=== PATIENT | female | born 2000 | race Hispanic/Latino ===

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

== ENCOUNTER 2018-09-06 21:32 | Emergency (ER) | payer BC, OTHER ==
--- OUTSIDE RECORDS SUMMARY | 2018-09-06 21:34 | XMS REPORT ---
:2000 [facility] Address [address] [place] [address] Care Team Providers Name Role Phone Unavailable Unavailable Unavailable Problems This patient has no known problems. Allergies, Adverse Reactions, Alerts This patient has no known allergies or adverse reactions. Medications This patient has no known medications.
[2018-09-06 23:00] LABS: Urine Blood NEGATIVE (NEG); Urine Glucose NEGATIVE (NEG); Urine Protein NEGATIVE (NEG)
[2018-09-06 23:02] LABS: Urine Bacteria <20 /HPF (<20); Urine RBC NONE SEEN /HPF (NONE SEEN)
[2018-09-06 23:02] LABS: Absolute Lymphocytes (CBC) 1.6 K/uL (0.7-4.9); Absolute Monocytes 0.5 K/uL (0.1-1.3); Absolute Neutrophil 2.3 K/uL (1.8-8.0); Basophils % 0.4 % (0-1.3); Eosinophils % 3.9 % (0-4.4); Hematocrit 40.6 % (36.0-45.0); Lymphocytes % 35.5 % (15.3-44.8); MPV 8.2 fL (7.6-11.3); Monocytes % 10.9 % (3.3-12.3); RBC Red Blood Cell Count 5.25 M/uL (3.86-4.86)
[2018-09-06 23:03] LABS: Urine Amorphous Sediment 1+ /HPF (NONE SEEN); Urine Culture Reflex Order NOT NEEDED
[2018-09-06 23:14] LABS: Albumin 3.7 g/dL (3.4-5.0); Bilirubin Direct 0.1 mg/dL (0-0.2); Bilirubin Total 0.4 mg/dL (0.2-1.0); Potassium 4.3 mmol/L (3.5-5.1); Protein, Total 7.3 g/dL (6.4-8.2)
[2018-09-07] MEDS ORDERED: ACETAMINOPHEN 500 MG TAB ONE (00:58)
--- NOTE | 2018-09-07 01:28 | EDPHYS ---
Physician Documentation [facility] Name: Aleisha Mcqueen Age: 17 yrs Sex: Female : 2000 Arrival Date: 09/06/2018 Time: 21:36 Bed 23 Private MD: ED Physician Dandre Monk HPI: 09/07 00:31 This 17 yrs old Female presents to ER via Ambulatory with complaints of jr8 Abdominal Pain, Nausea. 00:31 The patient presents with abdominal pain in the left lower quadrant. Onset: The jr8 symptoms/episode began/occurred acutely, today. The symptoms do not radiate. Associated signs and symptoms: Pertinent positives: nausea. The symptoms are described as stabbing. Modifying factors: The symptoms are alleviated by nothing, the symptoms are aggravated by nothing. Severity of pain: At its worst the pain was moderate in the emergency department the pain is unchanged. The patient has not experienced similar symptoms in the past. The patient has not recently seen a physician. 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 - Social history:: Smoking status: Patient/guardian denies using tobacco, Patient/guardian denies using alcohol. - Ebola Screening: : No symptoms or risks identified at this time. ROS: 09/07 00:31 ENT: Negative for injury, pain, and discharge, Neck: Negative for injury, pain, and jr8 swelling, Cardiovascular: Negative for chest pain, palpitations, and edema, Respiratory: Negative for shortness of breath, cough, wheezing, and pleuritic chest pain, Back: Negative for injury and pain, MS/Extremity: Negative for injury and deformity, Skin: Negative for injury, rash, and discoloration, Neuro: Negative for headache, weakness, numbness, tingling, and seizure. Constitutional: Positive for fever. Abdomen/GI: Positive for abdominal pain, nausea, diarrhea, Negative for vomiting, abdominal distension, anorexia, dysphagia, hematemesis, black/tarry stool, rectal pain, rectal bleeding, bowel incontinence, flatulence. Exam: 00:31 Eyes: Pupils equal round and reactive to light, extra-ocular motions intact. Lids and jr8 lashes normal. Conjunctiva and sclera are non-icteric and not injected. Cornea within normal limits. Periorbital areas with no swelling, redness, or edema. ENT: Nares patent. No nasal discharge, no septal abnormalities noted. Tympanic membranes are normal and external auditory canals are clear. Oropharynx with no redness, swelling, or masses, exudates, or evidence of obstruction, uvula midline. Mucous membranes moist. Neck: Trachea midline, no thyromegaly or masses palpated, and no cervical lymphadenopathy. Supple, full range of motion without nuchal rigidity, or vertebral point tenderness. No Meningismus. Cardiovascular: Regular rate and rhythm with a normal S1 and S2. No gallops, murmurs, or rubs. Normal PMI, no JVD. No pulse deficits. Respiratory: Lungs have equal breath sounds bilaterally, clear to auscultation and percussion. No rales, rhonchi or wheezes noted. No increased work of breathing, no retractions or nasal flaring. Back: No spinal tenderness. No costovertebral tenderness. Full range of motion. Skin: Warm, dry with normal turgor. Normal color with no rashes, no lesions, and no evidence of cellulitis. MS/ Extremity: Pulses equal, no cyanosis. Neurovascular intact. Full, normal range of motion. Neuro: Awake and alert, GCS 15, oriented to person, place, time, and situation. Cranial nerves II-XII grossly intact. Motor strength 5/5 in all extremities. Sensory grossly intact. Cerebellar exam normal. Normal gait. 00:31 Abdomen/GI: Inspection: abdomen appears normal, Bowel sounds: normal, Palpation: soft, in all quadrants, mild abdominal tenderness, in the left lower quadrant, mass, is not appreciated, rebound tenderness, is not appreciated, voluntary guarding, is not appreciated, involuntary guarding, is not appreciated, no appreciated organomegaly, Indicators: McBurney's point is not tender, Ramachandran's sign is negative, Rovsing's sign is negative, Liver: tenderness, is not appreciated. Vital Signs: 09/06 21:49 BP 117 / 72; Pulse 60; Resp 16; Temp 100.6(O); Pulse Ox 99% on R/A; Weight 108.86 kg jb4 (R); Height 5 ft. 3 in. (160.02 cm) (R); Pain 5/10; 22:45 BP 108 / 68; Pulse 61; Resp 16; Pulse Ox 100% on R/A; jb4 23:15 BP 106 / 71; Pulse 88; Resp 16; Temp 100.0(O); Pulse Ox 100% on R/A; jb4 09/07 00:10 BP 111 / 77; Pulse 56; Resp 16; Pulse Ox 100% on R/A; jb4 01:33 BP 108 / 78; Pulse 65; Resp 18; Temp 99.5(O); Pulse Ox 100% on R/A; Pain 0/10; mg2 09/06 21:49 Body Mass Index 42.51 (108.86 kg, 160.02 cm) jb4 MDM: 09/06 22:10 Patient medically screened. [facility] 09/07 01:27 Data reviewed: vital signs, nurses notes, lab test result(s), radiologic studies, CT jr8 scan, and as a result, I will discharge patient. Data interpreted: Pulse oximetry: on room air is 100 %. Interpretation: normal. Counseling: I had a detailed discussion with the patient and/or guardian regarding: the historical points, exam findings, and any diagnostic results supporting the discharge/admit diagnosis, lab results, radiology results, the need for outpatient follow up, a family practitioner, to return to the emergency department if symptoms worsen or persist or if there are any questions or concerns that arise at home. Response to treatment: the patient's symptoms have markedly improved after treatment. 09/06 22:29 Order name: Basic Metabolic Panel; Complete Time: 00:18 09/06 22:29 Order name: CBC with Diff; Complete Time: 00:18 09/06 22:29 Order name: Creatinine for Radiology; Complete Time: 00:18 09/06 22:29 Order name: Hepatic Function; Complete Time: 00:18 09/06 22:29 Order name: Lipase; Complete Time: 00:18 09/06 22:37 Order name: Urine Microscopic Only; Complete Time: 00:18 09/06 22:29 Order name: IV Saline Lock; Complete Time: 22:53 09/06 22:29 Order name: Labs collected and sent; Complete Time: 22:53 [facility] 09/06 22:30 Order name: CT Abd/Pelvis - W/Contrast [facility] 09/06 22:30 Order name: Urine Test (obtain specimen); Complete Time: 22:40 09/06 22:30 Order name: Urine Dipstick-Ancillary (obtain specimen); Complete Time: 22:40 8 09/06 22:40 Order name: Urine Dipstick--Ancillary (enter results); Complete Time: 00:18 ar5 09/06 22:40 Order name: Urine --Ancillary (enter results); Complete Time: 00:18 ar5 Administered Medications: 00:45 Drug: Tylenol 1000 mg Route: PO; jb4 01:33 Follow up: Response: No adverse reaction; Marked relief of symptoms mg2 Disposition: 09/07/18 01:27 Discharged to Home. Impression: Acute Gastroenteritis. - Condition is Stable. - Discharge Instructions: Viral Gastroenteritis, Adult. - Prescriptions for Bentyl 20 mg Oral Tablet - take 1 tablet by ORAL route every 6 hours As needed; 20 tablet. Zofran 4 mg Oral Tablet - take 1 tablet by ORAL route every 12 hours As needed; 20 tablet. - Medication Reconciliation Form, Thank You Letter, Antibiotic Education, Prescription Opioid Use form. - Follow up: Private Physician; When: 2 - 3 days; Reason: Recheck today's complaints, Continuance of care, Re-evaluation by your physician. - Problem is new. - Symptoms have improved. Addendum: 09/09/2018 11:15 Co-signature as Attending Physician, Dandre Monk MD I agree with the assessment and c ratliff plan of care. Signatures: Dispatcher [employer] [facility] Dandre Monk MD MD cha Roszak, Josh, PA PA jr8 Van Cormier, RN RN jb4 Osei Freeman, ALCON RN mg2 Corrections: (The following items were deleted from the chart) 09/07 01:35 01:27 09/07/2018 01:27 Discharged to Home. Impression: Acute Gastroenteritis. Condition mg2 is Stable. Forms are Medication Reconciliation Form, Thank You Letter, Antibiotic Education, Prescription Opioid Use. Follow up: Private Physician; When: 2 - 3 days; Reason: Recheck today's complaints, Continuance of care, Re-evaluation by your physician. Problem is new. Symptoms have improved. jr8
--- NOTE | 2018-09-07 01:28 | ER ---
Nurse's Notes [facility] Name: Aleisha Mcqueen Age: 17 yrs Sex: Female : 2000 Arrival Date: 09/06/2018 Time: 21:36 Bed 23 Private MD: Diagnosis: Acute Gastroenteritis Presentation: 09/06 21:49 Presenting complaint: Patient states: 3 days ago I ate chick-kody before work and jb4 started having a stabbing pain in my stomach. 21:49 Transition of care: patient was not received from another setting of care. Onset of jb4 symptoms was September 03, 2018. Risk Assessment: Do you want to hurt yourself or someone else? Patient reports no desire to harm self or others. Initial Sepsis Screen: Does the patient meet any 2 criteria? No. Patient's initial sepsis screen is negative. Does the patient have a suspected source of infection? No. Patient's initial sepsis screen is negative. Care prior to arrival: None. 21:49 Method Of Arrival: Ambulatory jb4 21:49 Acuity: PINEDA 3 jb4 Triage Assessment: 21:49 General: Appears in no apparent distress. comfortable, Behavior is calm, cooperative, jb4 appropriate for age. Pain: Complains of pain in left upper quadrant Pain does not radiate. Pain currently is 5 out of 10 on a pain scale. Quality of pain is described as stabbing, Pain began 2-3 days ago. Is intermittent. EENT: No signs and/or symptoms were reported regarding the EENT system. Neuro: Level of Consciousness is awake, alert, obeys commands, Oriented to person, place, time, situation. Cardiovascular: Patient's skin is warm and dry. Respiratory: Airway is patent Respiratory effort is even, unlabored, Respiratory pattern is regular, symmetrical. GI: Abdomen is non-distended, obese, Bowel sounds present X 4 quads. Abd is soft X 4 quads Abd is non tender in right upper quadrant, right lower quadrant and left lower quadrant Abdomen is tender to palpation in left upper quadrant Reports diarrhea, nausea. : No signs and/or symptoms were reported regarding the genitourinary system. Derm: Skin is intact, Skin is pink, warm \T\ dry. Musculoskeletal: Circulation, motion, and sensation intact. WARNING ANALYST: 21:49 LMP 08/23/2018 jb4 Historical: - Allergies: 21:49 No Known Allergies; jb4 - Home Meds: 21:49 None [Active]; jb4 - PMHx: 21:49 None; jb4 - PSHx: 21:49 Cholecystectomy; jb4 - Immunization history:: Adult Immunizations up to date, Flu vaccine is up to date. - Social history:: Smoking status: Patient/guardian denies using tobacco, Patient/guardian denies using alcohol. - Ebola Screening: : No symptoms or risks identified at this time. Screenin:49 Abuse screen: Denies threats or abuse. Nutritional screening: No deficits noted. jb4 Tuberculosis screening: No symptoms or risk factors identified. Fall Risk None identified. Assessment: 21:49 General: see triage note.. jb4 22:39 Reassessment: Patient appears in no apparent distress at this time. Patient and/or jb4 family updated on plan of care and expected duration. Pain level reassessed. Patient is alert, oriented x 3, equal unlabored respirations, skin warm/dry/pink. 23:21 Reassessment: Patient appears in no apparent distress at this time. Patient and/or jb4 family updated on plan of care and expected duration. Pain level reassessed. Patient is alert, oriented x 3, equal unlabored respirations, skin warm/dry/pink. 09/07 00:11 Reassessment: Patient appears in no apparent distress at this time. Patient and/or jb4 family updated on plan of care and expected duration. Pain level reassessed. Patient is alert, oriented x 3, equal unlabored respirations, skin warm/dry/pink. 00:20 Reassessment: Pt reported vomiting in CT, when offered something for nausea, pt jb4 refused, provider notified. 01:34 Reassessment: Patient states feeling better. mg2 Vital Signs: 09/06 21:49 BP 117 / 72; Pulse 60; Resp 16; Temp 100.6(O); Pulse Ox 99% on R/A; Weight 108.86 kg jb4 (R); Height 5 ft. 3 in. (160.02 cm) (R); Pain 5/10; 22:45 BP 108 / 68; Pulse 61; Resp 16; Pulse Ox 100% on R/A; jb4 23:15 BP 106 / 71; Pulse 88; Resp 16; Temp 100.0(O); Pulse Ox 100% on R/A; jb4 09/07 00:10 BP 111 / 77; Pulse 56; Resp 16; Pulse Ox 100% on R/A; jb4 01:33 BP 108 / 78; Pulse 65; Resp 18; Temp 99.5(O); Pulse Ox 100% on R/A; Pain 0/10; mg2 09/06 21:49 Body Mass Index 42.51 (108.86 kg, 160.02 cm) jb4 ED Course: 09/06 21:36 Patient arrived in ED. mr 21:48 Van Cormier, RN is Primary Nurse. jb4 21:49 Arm band placed on left wrist. jb4 21:49 Patient has correct armband on for positive identification. Bed in low position. Call jb4 light in reach. Side rails up X 1. Pulse ox on. NIBP on. 21:56 Triage completed. jb4 21:56 Theo Nieves PA is PHCP. jr8 21:56 Dandre Monk MD is Attending Physician. jr8 22:32 Radiology exam delayed due to lab results not completed at this time. test vr not completed at this time. 22:40 Missed attempt(s): 20 gauge in right antecubital area. 22 gauge in right forearm. jp3 Bleeding controlled, band aid applied, catheter tip intact. 22:53 Inserted saline lock: 22 gauge in left antecubital area, using aseptic technique. Blood mg2 collected. 09/07 00:15 CT Abd/Pelvis - W/Contrast In Process Unspecified. EDMS 00:54 No provider procedures requiring assistance completed. mg2 01:34 IV discontinued, intact, bleeding controlled, No redness/swelling at site. Pressure mg2 dressing applied. Administered Medications: 00:45 Drug: Tylenol 1000 mg Route: PO; jb4 01:33 Follow up: Response: No adverse reaction; Marked relief of symptoms mg2 Outcome: 01:27 Discharge ordered by . jr8 01:35 Discharged to home ambulatory. mg2 01:35 Condition: stable 01:35 Discharge instructions given to patient, Instructed on discharge instructions, follow up and referral plans. medication usage, Demonstrated understanding of instructions, follow-up care, medications, Prescriptions given X 2. 01:35 Patient left the ED. mg2 Signatures: Dispatcher [employer] EDGA Chary Wayne Goldie Stephenson Josh, PA PA jr8 Van Cormier RN RN jb4 Osei Freeman RN RN mg2 Rad Mckeon jp3 Corrections: (The following items were deleted from the chart) 09/06 22:03 21:49 Initial Sepsis Screen: Does the patient meet any 2 criteria? No. Patient's jb4 initial sepsis screen is negative. Does the patient have a suspected source of infection? No. Patient's initial sepsis screen is negative. jb4
[2018-09-07 02:05] VITALS: O2SAT 100
[2018-09-07 02:09] VITALS: BP 108/78; TEMP 99.5
--- NOTE | 2018-09-09 11:46 | RAD REPORT ---
EXAM DESCRIPTION: CT Abdomen and Pelvis With Intravenous Contrast CLINICAL HISTORY: The patient is 17 years old and is Female; iv only;Abd pain TECHNIQUE: Axial computed tomography images of the abdomen and pelvis with intravenous contrast. S agittal and coronal reformatted images were created and reviewed. This CT exam was performed using one or more of the following dose reduction techniques: automated exposure control, adjustment of t he mA and/or kV according to patient size, and/or use of iterative reconstruction technique. COMPARISON: No relevant prior studies available. FINDINGS: ARTIFACTS: The exam is suboptimal secondary to motion artifact. LUNG BASES: Unremarkable. No mass. No consolidation. ABDOMEN: LIVER: Unremarkable. No mass. GALLBLADDER AND BILE DUCTS: Surgical clips are present in the right upper quadrant, consistent w ith previous cholecystectomy. PANCREAS: No ductal dilation. No mass. SPLEEN: Unremarkable. ADRENALS: Unremarkable. No mass. KIDNEYS AND URETERS: Unremarkable. No solid mass. No hydronephrosis. STOMACH AND BOWEL: The stomach is distended with food contents. The small bowel is normal in yamini iber. Stool is present throughout the colon. There is no mucosal thickening or evidence of bowel obst ruction. PELVIS: APPENDIX: The appendix is normal in caliber without surrounding inflammation. BLADDER: Unremarkable. No mass. REPRODUCTIVE: An IUD is in place. The uterus and ovaries are unremarkable. ABDOMEN and PELVIS: INTRAPERITONEAL SPACE: Unremarkable. No free air. No significant fluid collection. BONES/JOINTS: No acute fracture. SOFT TISSUES: The soft tissues are normal. VASCULATURE: A retroaortic left renal vein is present. No abdominal aortic aneurysm. LYMPH NODES: Unremarkable. No enlarged lymph nodes. IMPRESSION: No acute findings on this contrasted CT of the abdomen and pelvis to explain the patient 's symptoms. Electronically signed by: Nicole Booth MD 09/07/2018 12:18 AM CDT Due to temporary technical issues with the PACS/Fluency reporting system, reports are being signed by the in house radiologist as a courtesy to ensure prompt reporting. The interpreting radiologist is f ully responsible for the content of the report.
== END 2018-09-07 01:35 | disposition home or self-care (01) ==
LOC: ER 21:32
DX: K52.9 Noninfective gastroenteritis and colitis, unspecified (principal)
CPT/HCPCS: 36415; 74177; 80048; 80076; 81003; 81015; 81025; 83690; 85025; 99284; Q9967

== ENCOUNTER 2022-04-23 09:20 | Emergency (ER) | payer BC ==
--- OUTSIDE RECORDS SUMMARY | 2022-04-23 09:24 | XMS REPORT | Continuity of Care Document ---
:2000 Author Organization [facility] t Address [address] [place] [address] Care Team Providers Name Role Phone PCP, PATIENT DOES NOT HAVE A Primary Care Physician Unavaila ble UNKNOWN, ATTENDING Attending Clinician Unavailable Margie Martin Attending Clinician Doctor Unassigned, [place] Attending Clinician Unavailable EWA PEREZ Attending Clinician Unavailable Lab, Adc Fam Pob I Attending Clinician Unavailable Ewa Adam Attending Clinician Pcp, Patient Does Not Have A Attending Clinician [phone] Pieter RONDON, Roxanne Thrasher Attending Clinician Unavailable Provider, [facility] Attending Clinician Unavailable Payers Payer Name Policy Type Policy Number Effective Date Expiration Date S [facility] - [id number] 2020 00:00:00 OUT OF STATE Problems Condition Condition Condition Status Onset Resolution Last Treating Co mments Source Name Details Category Date Date Treatment Clinician Date No known No known Disease Unive rs active active ity of problems problems [facility] Allergies, Adverse Reactions, Alerts Allergy Allergy Status Severity Reaction(s) Onset Inactive Treating Comm ents Source Name Type Date Date Clinician Amoxicil Propensi Active Hives 2015-06 Univer s rajesh ty to 0-06 ity of adverse 00:00: [place] reaction [address] [place] [address] Branch AMOXICIL DRUG Active Hives 2015-06 Univers RAJESH INGREDI 0-06 ity of 00:00: [address] Social History Social Habit Start Date Stop Date Quantity Comments Source Exposure to Unable to assess Univers ity of SARS-CoV-2 [place] [facility] (event) Branch Alcohol intake 2021-03-09 2021-03-09 Current drinker Unive rsity of 00:00:00 00:00:00 of alcohol [place] [facility] (finding) Branch Alcohol Comment 2020-01-14 2020-01-14 social Universit y of 00:00:00 00:00:00 [place] [facility] History SDOH 2020-01-14 2020-01-14 99 University o f Alcohol Frequency 00:00:00 00:00:00 [place] [facility] History SDOH 2020-01-14 2020-01-14 99 University o f Alcohol Std 00:00:00 00:00:00 [place] [facility] Drinks Branch History SDWY 2020-01-14 2020-01-14 99 University o f Alcohol Binge 00:00:00 00:00:00 [place] [facility] Tobacco use and 2015-04-29 2015-04-29 Never used Universit y of exposure 00:00:00 00:00:00 [facility] Sex Ass[birth year] At [birth year] Universit y of 00:00:00 00:00:00 [facility] Smoking Status Start Date Stop Date Source Never smoker [facility] Medications Ordered Filled Start Stop Current Ordering Indication Dosage Frequency Signature Comments Components Source Medication Medication Date Date Medication? Clinician (SIG) Name Name No known No Univers medications 9-29 ity of 18:27: [place] [facility] Branch No known No Univers medications 8-05 ity of 10:22: [place] [facility] Branch butalbital- Yes [id number] 1{tbl} Take 1 Univers acetaminoph 1-18 tablet by ity of en-caff 00:00: mouth [place] 50-325-40 00 every 6 Medical mg tablet (six) Branch hours as needed for Headache (Headache) . butalbital- 2020- No [id number] 1{tbl} Take 1 Univers acetaminoph 1-18 08-05 tablet by it y of en-caff 00:00: 00:00 mouth [place] 50-325-40 00 :00 every 6 Medical mg tablet (six) Branch hours as needed for Headache (Headache) . azithromyci 2015-06 Yes 250mg Take 1 Uni vers n 0-06 tablet by ity of (ZITHROMAX) 00:00: mouth [place] 250 mg 00 daily. Medical tablet Branch phenazopyri 2015-06 Yes 200mg Take 1 Uni vers dine 0-06 tablet by ity of (PYRIDIUM) 00:00[place] 200 mg 00 (three) Medical tablet times Branch daily. azithromyci 2015-06 Yes 250mg Take 1 Uni vers n 0-06 tablet by ity of (ZITHROMAX) 00:00: mouth [place] 250 mg 00 daily. Medical tablet Branch azithromyci 2015-06- No 250mg Take 1 Un aisha n 0-06 08-05 tablet by ity of (ZITHROMAX) 00:00[place] 00[place] 250 mg 00 :00 daily. Medical tablet Branch phenazopyri 2015-06- No 200mg Take 1 Un aisha dine 0-06 08-05 tablet by ity of (PYRIDIUM) 00:00: 00:00 mouth 3 [place] 200 mg 00 :00 (three) Medical tablet times Branch daily. azithromyci 2015-06- No 250mg Take 1 Un aisha n 0-06 08-05 tablet by ity of (ZITHROMAX) 00:00: 00:[place] 250 mg 00 :00 daily. Medical tablet Branch azithromyci 2014-06 Yes 250mg Take 1 Tab Univers n 0-30 by mouth ity of (ZITHROMAX 00:00: daily. [place] Z-CHLOE) 250 00 Medical mg tablet Branch azithromyci 2014-06- No 250mg Take 1 Tab Univers n 0-30 08-05 by mouth ity of (ZITHROMAX 00:00: 00:[place]. [place] Z-CHLOE) 250 00 :00 Medical mg tablet Branch No known No Univers medications ity [facility] No known No Univers medications ity [facility] No known No Univers medications ity [facility] No known No [facility] Immunizations Ordered Immunization Filled Immunization Date Status Commen ts Source Name Name Meningococcal 2015-04-[address] [facility] 00:00:00 [facility] yamini (groups A, C, Y and Branc h W-135) conjugate vaccine (MCV4P) HPV 2015-04-29 Completed University of 00:00:00 [facility] Meningococcal 2015-04-29 Completed University of Polysaccharide 00:00:00 [place] [facility]i yamini (groups A, C, Y and Branc h W-135) conjugate vaccine (MCV4P) HPV 2015-04-29 Completed University of 00:00:00 [facility] Meningococcal 2015-04-29 Completed University of Polysaccharide 00:00:00 [place] [facility]i yamini (groups A, C, Y and Branc h W-135) conjugate vaccine (MCV4P) HPV 2015-04-29 Completed University of 00:00:00 [facility] Meningococcal 2015-04-29 Completed University of Polysaccharide 00:00:00 [place] Medi yamini (groups A, C, Y and Branc h W-135) conjugate vaccine (MCV4P) HPV 2015-04-29 Completed University of 00:00:00 [facility] Meningococcal 2015-04-29 Completed University of Polysaccharide 00:00:00 [place] Medi yamini (groups A, C, Y and Branc h W-135) conjugate vaccine (MCV4P) HPV 2015-04-29 Completed University of 00:00:00 [facility] Meningococcal 2015-04-29 Completed University of Polysaccharide 00:00:00 [place] [facility] yamini (groups A, C, Y and Branc h W-135) conjugate vaccine (MCV4P) HPV 2015-04-29 Completed University of 00:00:00 [facility] Meningococcal 2015-04-29 Completed University of Polysaccharide 00:00:00 [place] Medi yamini (groups A, C, Y and Branc h W-135) conjugate vaccine (MCV4P) HPV 2015-04-29 Completed University of 00:00:00 [facility] Meningococcal 2015-04-29 Completed University of Polysaccharide 00:00:00 [place] [facility]i yamini (groups A, C, Y and Branc h W-135) conjugate vaccine (MCV4P) HPV 2015-04-29 Completed University of 00:00:00 [facility] Vital Signs Vital Name Observation Time Observation Value Comments Source Heart [facility] 2021-03-10 00:12:00 70 /[facility] Systolic blood 2021-03-10 00:12:00 125 mm[Hg] Univer sity of pressure [facility] Diastolic blood 2021-03-10 00:12:00 70 mm[Hg] Unive rsity of pressure [place] [facility] Body temperature 2021-03-09 23:24:00 37.17 Lauren Univ ersity of [place] [facility] Respiratory rate 2021-03-09 23:24:00 18 /min Univ ersity of [place] [facility] Body weight 2021-03-09 23:24:00 102.059 kg Universi ty of [place] [facility] BMI 2021-03-09 23:24:00 38.62 kg/m2 Universi ty of [place] [facility] Oxygen saturation in 2021-03-09 23:24:00 99 /min University of Arterial blood by [facility] Pulse oximetry Branch Systolic blood 2020-01-14 14:31:00 119 mm[Hg] Univer sity of pressure [place] [facility] Diastolic blood 2020-01-14 14:31:00 77 mm[Hg] Unive rsity of pressure [place] [facility] Heart rate 2020-01-14 14:31:00 67 /min Universi ty of [place] [facility] Body temperature 2020-01-14 14:31:00 37.06 Lauren Univ ersity of [place] [facility] Respiratory rate 2020-01-14 14:31:00 20 /min Univ ersity of [place] [facility] Body height 2020-01-14 14:31:00 162.6 cm Universi ty of [place] [facility] Body weight 2020-01-14 14:31:00 102.059 kg Universi ty of [place] [facility] BMI 2020-01-14 14:31:00 38.62 kg/m2 Universi ty of [place] [facility] Oxygen saturation in 2020-01-14 14:31:00 98 /min University of Arterial blood by [facility] Pulse oximetry Branch Systolic blood 2020-01-14 14:31:00 119 mm[Hg] Univer sity of pressure [place] [facility] Diastolic blood 2020-01-14 14:31:00 77 mm[Hg] Unive rsity of pressure [place] [facility] Heart rate 2020-01-14 14:31:00 67 /min Universi ty of [place] [facility] Body temperature 2020-01-14 14:31:00 37.06 Lauren Univ ersity of [place] [facility] Respiratory rate 2020-01-14 14:31:00 20 /min Univ ersity of [place] [facility] Body height 2020-01-14 14:31:00 162.6 cm Universi ty of [place] [facility] Body weight 2020-01-14 14:31:00 102.059 kg Universi ty of [facility] BMI 2020-01-14 14:31:00 38.62 kg/m2 Universi ty [facility] Oxygen saturation in 2020-01-14 14:31:00 98 /min University Arterial blood by [facility] Pulse oximetry Branch Procedures Procedure Date / Time Performed Performing Clinician Sour e NOTICE OF PRIVACY 2021-03-09 23:19:58 Doctor Unassigned, No Univ [facility] PRACTICES Name Medical Branch CONSENT/REFUSAL FOR 2021-03-09 23:19:39 [facility] Un[facility]igned, [facility] AND Name Medical Branch TREATMENT Encounters Start End Encounter Admission Attending Care Care Encounter Source Date/Time Date/Time Type Type Clinicians Facility Department ID 2021-04-[address] [facility] [id number] Univers 02:31:18 ity of [facility] 2021-06-20 2021-06-20 Outpatient R MARSHA [facility] [id number] Univers 09:30:00 09:30:00 ATTENDING ity [facility] 2021-03-09 2021-03-09 Emergency Margie Jones [facility] [id number] Univers 18:26:00 19:14:00 Katelin Salazar [id number] i [facility] [id number] [facility] [phone] [facility] 084 Branch 2021-03-09 2021-03-09 Orders Doctor ENCINAS [id number] Univers 00:00:00 00:00:00 Only UnassMUSA alcocer [id number] ity of [place] [facility] [id number] [place] [address] [id number] [facility] 009 Branch 2020-08-17 2020-08-17 Outpatient R CHRIS [facility] [id number] Univers 13:00:00 13:00:00 EWA kaufman [facility] 2020-08-17 2020-08-17 Laboratory Lab, Adc Fam Pob I [facility] [id number]. [id number] Univers 11:01:51 11:21:51 Only Ewa Perez [id number] ity of [place] [id number] Kit as Professio [phone] Nh dicde nal [address] [place] [address] Office Building One 2020-01-16 2020-01-16 Letter CE Leone [id number] 00:00:00 00:00:00 (Out) Patient MUSA [id number] Does Not HOSPITAL [id number] Have A [id number] [id number] 2020-01-16 2020-01-16 Letter CE Leone [id number] Univers 00:00:00 00:00:00 (Out) Patient MUSA [id number] it y of Does Not HOSP[place].2.686 [place] Have A [phone] [address] 2020-01-15 2020-01-15 Letter Pcp, [facility] [id number] 00:00:00 00:00:00 (Out) Patient Health [id number] Does Not [place] 4.2.7.2.686 Have A Professio [phone] [place] [address] Office Building [facility] 2020-01-15 2020-01-15 Telephone CE [place] [id number] 00:00:00 00:00:00 Roxanne S MUSA [id number] HOSPITAL [id number] [id number] 2020-01-15 2020-01-15 Letter Pcp, [facility] [id number] Univers 00:00:00 00:00:00 (Out) Patient Health [id number] it y of Does Not [place].2.[place] A Professio [phone] [address] Office Building [facility] 2020-01-15 2020-01-15 Telephone CE [place] [id number] Univers 00:00:00 00:00:00 Roxanne S MUSA [id number] ity of HOSPITAL 4.2.7.2.686 Kit as [phone] [address] 2020-01-14 2020-01-14 Urgent Provider, [facility] [id number] 08:37:59 10:06:38 Care [facility] [id number] Care [place] [id number] Professio [phone] nal [facility] Office Building One 2020-01-14 2020-01-14 Urgent Provider, [facility] [id number] [facility] 08:37:59 10:06:38 Care DeidraLeslie [facility] [id number] ity of [place] [id number] Kit as Professio [phone] Nh dical [address] Office Building One 2020-01-14 2020-01-14 Outpatient R [facility] [id number] Univers 08:20:00 08:20:00 ity of [facility] 2020-01-14 2020-01-14 Letter Doctor CE [id number] 00:00:00 00:00:00 (Out) Unassigned, MUSA [id number] [place] [facility] [id number] [facility] 2020-01-14 2020-01-14 Letter Doctor CE [id number] Univers 00:00:00 00:00:00 (Out) Unassigned, MUSA [id number] ity of [place] [facility] 4.2.7.2.686 Kit as [phone] [address] Results This patient has no known results.
[2022-04-23] MEDS ORDERED: MORPHINE 4 MG/ML SYR ONE ×2 (09:52→11:59)
[2022-04-23] MEDS ORDERED: FAMOTIDINE 20 MG/2 ML VIAL IV ONE (09:52)
[2022-04-23] MEDS ORDERED: NA CHLORIDE 0.9% 1,000 ML ONE (09:52)
[2022-04-23] MEDS ORDERED: ONDANSETRON 4 MG/2 ML VIAL ONE ×2 (09:52→11:59)
[2022-04-23 09:54] LABS: Urine Blood Negative (Negative); Urine Glucose Negative (Negative); Urine Protein Negative (Negative); Urine Specific Gravity 1.015 (1.005-1.030); Urine pH 6.5 (5.0-7.0)
[2022-04-23 09:57] LABS: Absolute Lymphocytes (CBC) 1.1 K/uL (0.7-4.9); Hematocrit 42.9 % (36.0-45.0); MCV 82.1 fL (80-100); MPV 7.2 fL (7.6-11.3); RBC Red Blood Cell Count 5.22 M/uL (3.86-4.86)
[2022-04-23 09:59] LABS: Urine Specific Gravity/Preg 1.015 (1.005-1.030)
[2022-04-23 10:01] LABS: Urine RBC <5 /HPF (None Seen)
[2022-04-23 10:12] LABS: Albumin 3.7 g/dL (3.4-5.0); Bilirubin Total 0.4 mg/dL (0.2-1.0); Potassium 4.1 mmol/L (3.5-5.1); Protein, Total 7.8 g/dL (6.4-8.2)
--- NOTE | 2022-04-23 10:46 | RAD REPORT ---
EXAM DESCRIPTION: CTAbdomen Pelvis W Contrast - 04/23/2022 10:35 am CLINICAL HISTORY: Abdominal pain, acute, nonlocalized COMPARISON: Abdomen Pelvis W Contrast dated 09/06/2018; Abdomen Pelvis W Contrast dated 10/03/2017 TECHNIQUE: CT of the abdomen and pelvis was performed. All CT scans are performed using dose optimization technique as appropriate and may include automated exposure control or mA/KV adjustment according to patient size. FINDINGS: Lower chest: No acute abnormality. Liver: Mild intrahepatic biliary duct dilatation. No focal liver mass. Biliary: Cholecystectomy. Stomach: No significant focal abnormality. Duodenum: No significant focal abnormality. Pancreas: No significant abnormality. Spleen: No significant abnormality. Adrenal: No suspicious lesions. Kidney/ureter: No hydronephrosis. No renal calculi. Retroperitoneum: No retroperitoneal adenopathy. Vascular: No aneurysm. Bowel: Nonspecific fluid-filled small bowel. Normal appendix. No bowel obstruction.. Peritoneum: No ascites or free air. Bladder: Grossly unremarkable. Reproductive: No adnexal masses. Bones: No acute fracture. Other: n/a IMPRESSION: Nonspecific fluid filled small bowel could represent a gastroenteritis. No bowel obstru ction.Specifically normal appendix.
[2022-04-23] MEDS ORDERED: NA CHLORIDE 0.9% 100 ML IV ONE (11:12)
[2022-04-23] MEDS ORDERED: CIPROFLOXACIN HCL 500 MG TAB ONE (11:12)
[2022-04-23] MEDS ORDERED: CEFTRIAXONE 1000 MG/VIAL ONE (11:12)
--- NOTE | 2022-04-23 11:16 | EDPHYS ---
Physician Documentation [facility] Name: Aleisha Mcqueen Age: 21 yrs Sex: Female : 2000 Arrival Date: 04/23/2022 Time: 09:22 Bed 18 Private MD: ED Physician Dandre Monk HPI: 04/23 11:08 This 21 yrs old Female presents to ER via Ambulatory with complaints of melchor Abdominal Pain - upper, Nausea, Diarrhea. 11:08 The patient presents to the emergency department with nausea, vomiting, that is melchor intermittent, abdominal pain, of the umbilical area. Onset: The symptoms/episode began/occurred 2 day(s) ago. Possible causes: unknown. The symptoms are aggravated by nothing. The symptoms are alleviated by nothing. Associated signs and symptoms: Pertinent positives: abdominal pain, nausea, vomiting. Severity of symptoms: At their worst the symptoms were mild in the emergency department the symptoms are unchanged. The patient has experienced similar episodes in the past, a few times. Historical: - Allergies: 09:31 No Known Allergies; bp - PSHx: 09:40 Cholecystectomy; bp - Immunization history:: Adult Immunizations up to date. - Social history:: Smoking status: Patient denies any tobacco usage or history of. ROS: 11:10 Constitutional: Negative for fever, chills, and weight loss, Eyes: Negative for injury, melchor pain, redness, and discharge, ENT: Negative for injury, pain, and discharge, Neck: Negative for injury, pain, and swelling, Cardiovascular: Negative for chest pain, palpitations, and edema, Respiratory: Negative for shortness of breath, cough, wheezing, and pleuritic chest pain, Back: Negative for injury and pain, : Negative for injury, bleeding, discharge, and swelling, MS/Extremity: Negative for injury and deformity, Skin: Negative for injury, rash, and discoloration, Neuro: Negative for headache, weakness, numbness, tingling, and seizure, Psych: Negative for depression, anxiety, suicide ideation, homicidal ideation, and hallucinations, Allergy/Immunology: Negative for hives, rash, and allergies, Endocrine: Negative for neck swelling, polydipsia, polyuria, polyphagia, and marked weight changes, Hematologic/Lymphatic: Negative for swollen nodes, abnormal bleeding, and unusual bruising. 11:10 Abdomen/GI: Positive for abdominal pain, nausea and vomiting, of the right upper quadrant, left upper quadrant, right lower quadrant and left lower quadrant. Exam: 11:10 Constitutional: This is a well developed, well nourished patient who is awake, alert, melchor and in no acute distress. Head/Face: Normocephalic, atraumatic. Eyes: Pupils equal round and reactive to light, extra-ocular motions intact. Lids and lashes normal. Conjunctiva and sclera are non-icteric and not injected. Cornea within normal limits. Periorbital areas with no swelling, redness, or edema. ENT: Nares patent. No nasal discharge, no septal abnormalities noted. Tympanic membranes are normal and external auditory canals are clear. Oropharynx with no redness, swelling, or masses, exudates, or evidence of obstruction, uvula midline. Mucous membranes moist. Neck: Trachea midline, no thyromegaly or masses palpated, and no cervical lymphadenopathy. Supple, full range of motion without nuchal rigidity, or vertebral point tenderness. No Meningismus. Chest/axilla: Normal chest wall appearance and motion. Nontender with no deformity. No lesions are appreciated. Cardiovascular: Regular rate and rhythm with a normal S1 and S2. No gallops, murmurs, or rubs. Normal PMI, no JVD. No pulse deficits. Respiratory: Lungs have equal breath sounds bilaterally, clear to auscultation and percussion. No rales, rhonchi or wheezes noted. No increased work of breathing, no retractions or nasal flaring. Back: No spinal tenderness. No costovertebral tenderness. Full range of motion. Female : Normal external genitalia. Skin: Warm, dry with normal turgor. Normal color with no rashes, no lesions, and no evidence of cellulitis. MS/ Extremity: Pulses equal, no cyanosis. Neurovascular intact. Full, normal range of motion. Neuro: Awake and alert, GCS 15, oriented to person, place, time, and situation. Cranial nerves II-XII grossly intact. Motor strength 5/5 in all extremities. Sensory grossly intact. Cerebellar exam normal. Normal gait. Psych: Awake, alert, with orientation to person, place and time. Behavior, mood, and affect are within normal limits. 11:10 Abdomen/GI: Inspection: abdomen appears normal, Bowel sounds: active, all quadrants, Palpation: mild abdominal tenderness, in all quadrants, Liver: no appreciated palpable abnormalities, Hernia: not appreciated. Vital Signs: 09:39 BP 111 / 49; Pulse 86; Resp 17; Temp 98.6; Pulse Ox 98% ; bp 09:39 Weight 108.86 kg; Height 5 ft. 3 in. (160.02 cm); bp 09:39 Body Mass Index 42.51 (108.86 kg, 160.02 cm) bp MDM: 09:23 Patient medically screened. [facility] 11:11 Differential diagnosis: Nonspecific abd pain, gastritis, pancreatitis, viral melchor gastroenteritis, gastroenteritis, bowel obstruction, diverticulitis, Endometriosis, gastritis, gastroesophageal reflux disease, non-specific abd pain. Data reviewed: vital signs, nurses notes, lab test result(s), radiologic studies, CT scan. Data interpreted: supervisor operations: rate is 86 beats/min, rhythm is regular, Pulse oximetry: on room air is 98 %. Counseling: I had a detailed discussion with the patient and/or guardian regarding: the historical points, exam findings, and any diagnostic results supporting the discharge/admit diagnosis, lab results, radiology results, the need for outpatient follow up, for definitive care, a family practitioner. 04/23 09:33 Order name: CBC with Diff; Complete Time: 10:52 [facility] 04/23 09:33 Order name: CMP; Complete Time: 10:52 [facility] 04/23 09:33 Order name: Lipase; Complete Time: 10:52 [facility] 04/23 09:33 Order name: Urine Microscopic Only; Complete Time: 10:52 [facility] 04/23 09:55 Order name: Urine --Ancillary (enter results); Complete Time: 10:52 eb 04/23 09:55 Order name: Urine Dipstick-Ancillary; Complete Time: 10:52 EDMS 04/23 09:50 Order name: CT Abd/Pelvis - IV Contrast Only; Complete Time: 10:52 [facility] 04/23 10:53 Order name: Urine Culture [facility] 04/23 09:33 Order name: IV Saline Lock; Complete Time: 10:00 [facility] 04/23 09:33 Order name: Labs collected and sent; Complete Time: 10:00 [facility] 04/23 09:33 Order name: Urine Dipstick-Ancillary (obtain specimen); Complete Time: 10:00 [facility] 04/23 09:33 Order name: Urine Test (obtain specimen); Complete Time: 10:00 melchor Administered Medications: 09:45 Drug: NS 0.9% 1000 ml Route: IV; Rate: 1 bolus; Site: right forearm; bp 12:38 Follow up: IV Status: Completed infusion; IV Intake: 1000ml bp 09:45 Drug: Pepcid (famotidine) 20 mg Route: IVP; Site: right forearm; bp 12:39 Follow up: Response: No adverse reaction bp 09:45 Drug: Zofran (Ondansetron) 4 mg Route: IVP; Site: right forearm; bp 12:39 Follow up: Response: No adverse reaction bp 09:45 Drug: morphine 4 mg Route: IVP; Infused Over: 4 mins; Site: right forearm; bp 12:38 Follow up: Response: Pain is decreased bp 11:15 Drug: Rocephin (cefTRIAXone) 1 grams Route: IV; Rate: per protocol; Site: right forearm;bp 12:38 Follow up: IV Status: Completed infusion; IV Intake: 1000ml bp 11:15 Drug: Cipro (ciprofloxacin) 500 mg Route: PO; bp 12:38 Follow up: Response: No adverse reaction bp Disposition Summary: 04/23/22 11:15 Discharge Ordered Location: Home melchor Problem: new melchor Symptoms: have improved melchor Condition: Stable melchor Diagnosis - Vomiting melchor - Abdominal pain, Generalized melchor - Noninfective gastroenteritis and colitis, unspecified melchor - UTI/ Urinary tract infection, site not specified melchor Followup: melchor - With: Private Physician - When: 2 - 3 days - Reason: Recheck today's complaints, Continuance of care, Re-evaluation by your physician Discharge Instructions: - Discharge Summary Sheet melchor - Abdominal Pain, Adult melchor - Dysuria melchor - Urinary Tract Infection, Adult melchor - Urinary Tract Infection, Adult, [id number] melchor - Abdominal Pain, Adult, [id number] melchor - Vomiting, Adult melchor Forms: - Medication Reconciliation Form melchor - Thank You Letter melchor - Antibiotic Education melchor - Prescription Opioid Use melchor - Work release form ss Prescriptions: - Cipro 250 mg Oral Tablet - take 2 tablets by ORAL route every 12 hours; 20 tablet; Refills: 0, Product melchor Selection Permitted - Pepcid 20 mg Oral Tablet - take 1 tablet by ORAL route every 12 hours for 10 days; 20 tablet; Refills: 0, melchor Product Selection Permitted - Zofran 4 mg Oral Tablet - take 1 tablet by ORAL route every 12 hours As needed; 20 tablet; Refills: 0, melchor Product Selection Permitted - dicyclomine 20 mg Oral Tablet - take 1 tablet by ORAL route 4 times per day; 28 tablet; Refills: 0, Product melchor Selection Permitted Signatures: Dispatcher [employer] Dandre Ortega MD MD cha Peltier, Brian, RN RN bp
--- NOTE | 2022-04-23 11:16 | ER ---
Nurse's Notes [facility] Name: Aleisha Mcqueen Age: 21 yrs Sex: Female : 2000 Arrival Date: 04/23/2022 Time: 09:22 Bed 18 Private MD: Diagnosis: Vomiting;Abdominal pain, Generalized;Noninfective gastroenteritis and colitis, unspecified;UTI/ Urinary tract infection, site not specified Presentation: 04/23 09:39 Chief complaint: Patient states: NAYELI-UMBILICAL PAIN x3 DAYS. Coronavirus screen: At bp this time, the client does not indicate any symptoms associated with coronavirus-19. Ebola Screen: No symptoms or risks identified at this time. Initial Sepsis Screen: Does the patient meet any 2 criteria? No. Patient's initial sepsis screen is negative. Does the patient have a suspected source of infection? No. Patient's initial sepsis screen is negative. Risk Assessment: Do you want to hurt yourself or someone else? Patient reports no desire to harm self or others. Onset of symptoms is unknown. 09:39 Method Of Arrival: Ambulatory bp 09:39 Acuity: PINEDA 3 bp Triage Assessment: 09:45 General: Appears uncomfortable, Behavior is cooperative, appropriate for age. Pain: bp Complains of pain in umbilical area. EENT: No deficits noted. Neuro: No deficits noted. Cardiovascular: No deficits noted. Respiratory: No deficits noted. GI: Reports lower abdominal pain. : No signs and/or symptoms were reported regarding the genitourinary system. Derm: No deficits noted. Musculoskeletal: No deficits noted. Historical: - Allergies: 09:31 No Known Allergies; bp - PSHx: 09:40 Cholecystectomy; bp - Immunization history:: Adult Immunizations up to date. - Social history:: Smoking status: Patient denies any tobacco usage or history of. Screenin:45 Abuse screen: Denies threats or abuse. Denies injuries from another. Nutritional bp screening: No deficits noted. Tuberculosis screening: No symptoms or risk factors identified. Fall Risk None identified. Assessment: 09:45 General: SEE TRIAGE NOTE. bp 12:40 Reassessment: PT DC HOME AMBULATORY, DX COLITIS. bp Vital Signs: 09:39 BP 111 / 49; Pulse 86; Resp 17; Temp 98.6; Pulse Ox 98% ; bp 09:39 Weight 108.86 kg; Height 5 ft. 3 in. (160.02 cm); bp 09:39 Body Mass Index 42.51 (108.86 kg, 160.02 cm) bp ED Course: 09:22 Patient arrived in ED. am2 09:23 Dandre Monk MD is Attending Physician. [facility] 09:31 Sumanth Foote, RN is Primary Nurse. bp 09:40 Triage completed. bp 09:45 Inserted saline lock: 20 gauge in right forearm, using aseptic technique. Blood bp collected. 09:45 Arm band placed on. bp 09:45 Patient has correct armband on for positive identification. Bed in low position. Call bp light in reach. Side rails up X2. 10:37 CT Abd/Pelvis - IV Contrast Only In Process Unspecified. EDMS 12:41 Accessed IV discontinued, intact, bleeding controlled, No redness/swelling at site. bp Pressure dressing applied. 12:42 No provider procedures requiring assistance completed. bp Administered Medications: 09:45 Drug: NS 0.9% 1000 ml Route: IV; Rate: 1 bolus; Site: right forearm; bp 12:38 Follow up: IV Status: Completed infusion; IV Intake: 1000ml bp 09:45 Drug: Pepcid (famotidine) 20 mg Route: IVP; Site: right forearm; bp 12:39 Follow up: Response: No adverse reaction bp 09:45 Drug: Zofran (Ondansetron) 4 mg Route: IVP; Site: right forearm; bp 12:39 Follow up: Response: No adverse reaction bp 09:45 Drug: morphine 4 mg Route: IVP; Infused Over: 4 mins; Site: right forearm; bp 12:38 Follow up: Response: Pain is decreased bp 11:15 Drug: Rocephin (cefTRIAXone) 1 grams Route: IV; Rate: per protocol; Site: right forearm;bp 12:38 Follow up: IV Status: Completed infusion; IV Intake: 1000ml bp 11:15 Drug: Cipro (ciprofloxacin) 500 mg Route: PO; bp 12:38 Follow up: Response: No adverse reaction bp Medication: 12:40 VIS not applicable for this client. bp Intake: 12:38 IV: 1000ml; Total: 1000ml. bp 12:38 IV: 1000ml; Total: 2000ml. bp Outcome: 11:15 Discharge ordered by . melchor 12:41 Discharged to home ambulatory. bp 12:41 Condition: stable 12:41 Discharge instructions given to patient, Instructed on discharge instructions, follow up and referral plans. medication usage, Demonstrated understanding of instructions, follow-up care, medications, Prescriptions given X 3. 12:43 Patient left the ED. bp Signatures: Dispatcher [employer] Dandre Ortega MD MD cha Moreno, Amanda am2 Peltier, Brian, RN RN bp
[2022-04-23 12:56] VITALS: BP 111/49; TEMP 98.6; O2SAT 98
== END 2022-04-23 12:43 | disposition home or self-care (01) ==
LOC: ER 09:20
DX: K52.9 Noninfective gastroenteritis and colitis, unspecified (principal); N39.0 Urinary tract infection, site not specified; R11.10 Vomiting, unspecified
CPT/HCPCS: 96365; 96361; 87088; 85025; 87086; 36415; 81025; 83690; 80053; 74177; 96375; 99284; Q9967; J7030; J2405 ×2; 81003; 81015

== ENCOUNTER 2022-07-11 08:12 | Emergency (ER) | payer BC ==
--- OUTSIDE RECORDS SUMMARY | 2022-07-11 08:16 | XMS REPORT | Continuity of Care Document ---
:2000 Author Organization [facility] t Address [address] [place] [address] Care Team Providers Name Role Phone PCP, PATIENT DOES NOT HAVE A Primary Care Physician Unavaila ble UNKNOWN, ATTENDING Attending Clinician Unavailable Margie Martin Attending Clinician Doctor Unassigned, [place] Attending Clinician Unavailable EWA PEREZ Attending Clinician Unavailable Lab, Adc Fam Pob I Attending Clinician Unavailable Ewa Adam Attending Clinician Pcp, Patient Does Not Have A Attending Clinician [phone] Peiter RONDON, Roxanne Thrasher Attending Clinician Unavailable Provider, [facility] Attending Clinician Unavailable Payers Payer Name Policy Type Policy Number Effective Date Expiration Date S [facility] [place] - [id number] 2020 00:00:00 OUT OF STATE Problems Condition Condition Condition Status Onset Resolution Last Treating Co mments Source Name Details Category Date Date Treatment Clinician Date No known No known Disease Unive rs active active ity of problems problems [facility] [place] Allergies, Adverse Reactions, Alerts Allergy Allergy Status Severity Reaction(s) Onset Inactive Treating Comm ents Source Name Type Date Date Clinician Amoxicil Propensi Active Hives 2015-06 Univer s rajesh ty to 0-06 ity of adverse 00:00: [place] reaction [address] [place] [address] Branch AMOXICIL DRUG Active Hives 2015-06 Univers RAJESH INGREDI 0-06 ity of 00:00: [address] Social History Social Habit Start Date Stop Date Quantity Comments Source Exposure to Unable to assess Univers ity of SARS-CoV-2 [place] [facility] (event) Branch Alcohol intake 2021-03-09 2021-03-09 Current drinker Unive rsity of 00:00:00 00:00:00 of alcohol [place] [facility] (finding) Branch Alcohol Comment 2020-01-14 2020-01-14 social Universit y of 00:00:00 00:00:00 [place] [facility] History SDOH 2020-01-14 2020-01-14 99 University o f Alcohol Frequency 00:00:00 00:00:00 [place] [facility] History SDOH 2020-01-14 2020-01-14 99 University o f Alcohol Std 00:00:00 00:00:00 [place] [facility] Drinks [facility] History SDWY 2020-01-14 2020-01-14 99 University o f Alcohol Binge 00:00:00 00:00:00 [place] [facility] Tobacco use and 2015-04-29 2015-04-29 Never used Universit y of exposure 00:00:00 00:00:00 [facility] [place] Sex Assigned At [birth year] Universit y of 00:00:00 00:00:00 [facility] [place] Smoking Status Start Date Stop Date Source Never smoker [facility] Medications Ordered Filled Start Stop Current Ordering Indication Dosage Frequency Signature Comments Components Source Medication Medication Date Date Medication? Clinician (SIG) Name Name No known No Univers medications 9-29 ity of 18:27: [place] [facility] No known No Univers medications 8-05 ity of 10:22: [place] [facility] butalbital- Yes [id number] 1{tbl} Take 1 Univers acetaminoph 1-18 tablet by ity of en-caff 00:00: mouth [place] 50-325-40 00 every 6 Medical mg tablet (six) Branch hours as needed for Headache (Headache) . butalbital- 2020- No [id number] 1{tbl} Take 1 Univers acetaminoph 1-18 08-05 [...] Branch No known No Univers medications ity [facility] No known No Univers medications ity [facility] No known No Univers medications ity [facility] No known No [facility] Ordered Immunization Filled Immunization Date Status Commen ts Source Name Name Meningococcal 2015-04-29 Completed [facility] 00:00:00 [facility] yamini (groups A, C, Y and Branc h W-135) conjugate vaccine (MCV4P) HPV 2015-04-29 Completed University of 00:00:00 [facility] [place] Meningococcal 2015-04-29 Completed University of Polysaccharide 00:00:00 [place] [facility] yamini (groups A, C, Y and Branc h W-135) conjugate vaccine (MCV4P) HPV 2015-04-29 Completed University of 00:00:00 [facility] [place] Meningococcal 2015-04-29 Completed University of Polysaccharide 00:00:00 [place] [facility] yamini (groups A, C, Y and Branc h W-135) conjugate vaccine (MCV4P) HPV 2015-04-29 Completed University of 00:00:00 [facility] [place] Meningococcal 2015-04-29 Completed University of Polysaccharide 00:00:00 [place] [facility] yamini (groups A, C, Y and Branc h W-135) conjugate vaccine (MCV4P) HPV 2015-04-29 Completed University of 00:00:00 [facility] [place] Meningococcal 2015-04-29 Completed University of Polysaccharide 00:00:00 [place] [facility] yamini (groups A, C, Y and Branc h W-135) conjugate vaccine (MCV4P) HPV 2015-04-29 Completed University of 00:00:00 [facility] [place] Meningococcal 2015-04-29 Completed University of Polysaccharide 00:00:00 [place] [facility] yamini (groups A, C, Y and Branc h W-135) conjugate vaccine (MCV4P) HPV 2015-04-29 Completed University of 00:00:00 [facility] [place] Meningococcal 2015-04-29 Completed University of Polysaccharide 00:00:00 [place] [facility] yamini (groups A, C, Y and Branc h W-135) conjugate vaccine (MCV4P) HPV 2015-04-29 Completed University of 00:00:00 [facility] [place] Meningococcal 2015-04-29 Completed University of Polysaccharide 00:00:00 [place] [facility] y[facility]i (groups A, C, Y and Branc h W-135) conjugate vaccine (MCV4P) HPV 2015-04-29 Completed University of 00:00:00 [facility] [place] Vital Signs Vital Name Observation Time Observation Value Comments Source Heart rate 2021-03-10 00:12:00 70 /min [facility] of [facility] Systolic blood 2021-03-10 00:12:00 125 mm[Hg] Univer sity of pressure [facility] [place] Diastolic blood 2021-03-10 00:12:00 70 mm[Hg] Unive rsity of pressure [place] [facility] Body temperature 2021-03-09 23:24:00 37.17 Lauren Univ ersity of [place] [facility] Respiratory rate 2021-03-09 23:24:00 18 /min Univ [facility] [place] [facility] Body weight 2021-03-09 23:24:00 102.059 kg Universi ty [facility] [place] [facility] BMI 2021-03-09 23:24:00 38.62 kg/m2 Universi ty [facility] [place] [facility] Oxygen saturation in 2021-03-09 23:24:00 99 /min University of Arterial blood by [facility] Pulse oximetry Branch Systolic blood 2020-01-14 14:31:00 119 mm[Hg] Univer sity of pressure [place] [facility] Diastolic blood 2020-01-14 14:31:00 77 mm[Hg] Unive rsity of pressure [place] [facility] Heart rate 2020-01-14 14:31:00 67 /min [facility]i [facility] [place] [facility] Body temperature 2020-01-14 14:31:00 37.06 Lauren Univ ers[facility] [place] [facility] Respiratory rate 2020-01-14 14:31:00 20 /min Univ ersity [facility] [place] [facility] Body height 2020-01-14 14:31:00 162.6 cm [facility] [place] [facility] Body weight 2020-01-14 14:31:00 102.059 kg [facility] [place] [facility] BMI 2020-01-14 14:31:00 38.62 kg/m2 [facility] [place] [facility] Oxygen saturation in 2020-01-14 14:31:00 98 /min University of Arterial blood by [facility] Pulse oximetry Branch Systolic blood 2020-01-14 14:31:00 119 mm[Hg] Univer sity of pressure [place] [facility] Diastolic blood 2020-01-14 14:31:00 77 mm[Hg] Unive rsity of pressure [place] [facility] Heart rate 2020-01-14 14:31:00 67 /min [facility] [place] [facility] Body temperature 2020-01-14 14:31:00 37.06 Lauren Univ ersity [facility] [place] [facility] Respiratory rate 2020-01-14 14:31:00 20 /min Univ ers[facility] [place] [facility] Body height 2020-01-14 14:31:00 162.6 cm [facility] [place] [facility] Body weight 2020-01-14 14:31:00 102.059 kg Universi ty of [facility] [place] BMI 2020-01-14 14:31:00 38.62 kg/m2 Universi ty [facility] Oxygen saturation in 2020-01-14 14:31:00 98 /min University Arterial blood by [facility] Pulse oximetry Branch Procedures Procedure Date / Time Performed Performing Clinician Sour e NOTICE OF PRIVACY 2021-03-09 23:19:58 Doctor Unassigned, No Univ [facility] PRACTICES Name Medical Branch CONSENT/REFUSAL FOR 2021-03-09 23:19:39 Doctor Unassigned, No [facility] AND Name Medical Branch TREATMENT Encounters Start End Encounter Admission Attending Care Care Encounter Source Date/Time Date/Time Type Type Clinicians Facility Department ID 2021-04-12 Emergency [facility] [id number] Univers 02:31:18 ity of [facility] [place] 2021-06-20 2021-06-20 Outpatient R MARSHA [facility] [id number] Univers 09:30:00 09:30:00 ATTENDING ity [facility] 2021-03-09 2021-03-09 Emergency Margie Jones [facility] [id number] Univers 18:26:00 19:14:00 Katelin Salazar [id number] i [facility] [id number] [facility] [phone] [facility] 084 Branch 2021-03-09 2021-03-09 Orders Doctor ENCINAS [id number] Univers 00:00:00 00:00:00 Only UnassMUSA alcocer [id number] ity of [place] [facility] [id number] [place] [address] [phone] [facility] 009 Branch 2020-08-17 2020-08-17 Outpatient R CHRIS [facility] [id number] Univers 13:00:00 13:00:00 EWA kaufman [facility] 2020-08-17 2020-08-17 Laboratory Lab, Adc Fam Pob I [facility] [id number]. [id number] Univers 11:01:51 11:21:51 Only Ewa Perez [id number] ity of [place] [id number] Kit as Professio [phone] [place] dic[place] nal [address] [place] [address] Office Building One 2020-01-16 2020-01-16 Letter CE Leone [id number] 00:00:00 00:00:00 (Out) Patient MUSA [id number] Does Not HOSPITAL [id number] Have A [id number] [id number] 2020-01-16 2020-01-16 Letter CE Leone [id number] Univers 00:00:00 00:00:00 (Out) Patient MUSA [id number] it y of Does Not HOSPITAL [id number] [place] Have A [phone] [address] 2020-01-15 2020-01-15 Letter Pcp, [facility] [id number] 00:00:00 00:00:00 (Out) Patient Health [id number] Does Not [place] [id number] Have A Professio [phone] [place] [address] Office Building [facility] 2020-01-15 2020-01-15 Telephone CE [place] [id number] 00:00:00 00:00:00 Roxanne S MUSA [id number] HOSPITAL [id number] [id number] 2020-01-15 2020-01-15 Letter Pcp, [facility] [id number] Univers 00:00:00 00:00:00 (Out) Patient Health [id number] it y of Does Not [place] 4.2.7.2.686 [place] Have [place] Professio [phone] [address] Office Building One 2020-01-15 2020-01-15 Telephone CE [place] [id number] Univers 00:00:00 00:00:00 Roxanne S MUSA [id number] ity of HOSPITAL 4.2.7.2.686 Kit as [phone] [address] 2020-01-14 2020-01-14 Urgent Provider, [facility] [id number] 08:37:59 10:06:38 Care [facility] [id number] Care [place] [id number] Professio [phone] nal [facility] Office Building One 2020-01-14 2020-01-14 Urgent Provider, [facility] [id number] [facility] 08:37:59 10:06:38 Care DeidraLeslie [facility]ung[facility] [id number] ity of [place] 4.2.7.2.686 Kit as Professio [phone] [place] dical [address] Office Building One 2020-01-14 2020-01-14 Outpatient R [facility] [id number] Univers 08:20:00 08:20:00 ity of [facility] [place] 2020-01-14 2020-01-14 Letter Doctor CE 1.2.840.114 [id number] 00:00:00 00:00:00 (Out) Unassigned, MUSA [id number] [place] [facility] [id number] [phone] [facility] 2020-01-14 2020-01-14 Letter Doctor CE 1.2.840.114 [id number] Univers 00:00:00 00:00:00 (Out) Unassigned, MUSA [id number] ity of [place] [facility] [id number] Kit as [phone] [address] Results This patient has no known results.
[2022-07-11 09:00] LABS: Absolute Lymphocytes (CBC) 1.8 K/uL (0.7-4.9); Hematocrit 39.7 % (36.0-45.0); Lymphocytes % 27.9 % (15.3-44.8); MCV 81.9 fL (80-100); MPV 7.1 fL (7.6-11.3); RBC Red Blood Cell Count 4.84 M/uL (3.86-4.86)
[2022-07-11 09:18] LABS: Albumin 3.4 g/dL (3.4-5.0); Bilirubin Total 0.4 mg/dL (0.2-1.0); Protein, Total 7.3 g/dL (6.4-8.2)
[2022-07-11] MEDS ORDERED: ONDANSETRON 4 MG/2 ML VIAL ONE (09:31)
[2022-07-11 09:35] LABS: Urine Blood Negative (Negative); Urine Glucose Negative (Negative); Urine Protein Negative (Negative); Urine Specific Gravity 1.015 (1.005-1.030)
[2022-07-11 10:01] LABS: Urine Specific Gravity/Preg 1.015 (1.005-1.030)
--- NOTE | 2022-07-11 10:08 | RAD REPORT ---
EXAM DESCRIPTION: CT - Abdomen Pelvis W Contrast - 07/11/2022 9:41 am CLINICAL HISTORY: left sided abd pain COMPARISON: Abdomen Pelvis W Contrast dated 04/23/2022 TECHNIQUE: Biphasic, helical CT imaging of the abdomen and pelvis was performed following 100 ml non -ionic IV contrast. Oral contrast: No. All CT scans are performed using dose optimization technique as appropriate and may include automated exposure control or mA/KV adjustment according to patient size. FINDINGS: No suspicious findings in the lung bases. The liver, spleen, and pancreas show no suspicious findings. Cholecystectomy clips are present. No ab normal biliary tree dilatation. Symmetric renal function is seen with no hydronephrosis or suspicious renal mass. No pyelonephritis o r acute parenchymal process. No bladder abnormalities. No adrenal abnormalities. Uterus and ovaries s how no suspicious findings. No dilated bowel loops or bowel wall thickening. No appendicitis findings. No free air or pneumatosis . No inflammatory stranding. Trace free fluid in the cul de sac is well within physiologic limits. N o hernia, mass or bulky lymphadenopathy. No suspicious bony findings. IMPRESSION: Contrast enhanced CT abdomen and pelvis showing no significant or suspicious finding.
--- NOTE | 2022-07-11 10:13 | EDPHYS ---
Physician Documentation [facility] Name: Aleisha Mcqueen Age: 21 yrs Sex: Female : 2000 Arrival Date: 07/11/2022 Time: 08:22 Bed 18 Private MD: ED Physician Cornelio Soto HPI: 07/11 08:53 This 21 yrs old Female presents to ER via Ambulatory with complaints of rn Abdominal Pain. 08:53 The patient presents with abdominal pain in the left upper quadrant, in the left lower rn quadrant. Onset: The symptoms/episode began/occurred yesterday. The symptoms do not radiate. Associated signs and symptoms: Pertinent positives: nausea, Pertinent negatives: blood in stools, chest pain, constipation, fever, shortness of breath, vomiting blood. Modifying factors: The symptoms are alleviated by nothing, the symptoms are aggravated by movement, touching the area. Severity of pain: At its worst the pain was moderate in the emergency department the pain is unchanged. The patient has not experienced similar symptoms in the past. The patient has not recently seen a physician. 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 - Social history:: Smoking status: Patient denies any tobacco usage or history of. - Family history:: not pertinent. - Hospitalizations: : No recent hospitalization is reported. ROS: 08:53 Constitutional: Negative for fever, chills, and weight loss, Cardiovascular: Negative rn for chest pain, palpitations, and edema, Respiratory: Negative for shortness of breath, cough, wheezing, and pleuritic chest pain, Abdomen/GI: + left sided abd pain Back: Negative for injury and pain, MS/Extremity: Negative for injury and deformity, Skin: Negative for injury, rash, and discoloration, Neuro: Negative for headache, weakness, numbness, tingling, and seizure. Exam: 08:53 Constitutional: This is a well developed, well nourished patient who is awake, alert, rn and in no acute distress. Head/Face: Normocephalic, atraumatic. Cardiovascular: Regular rate and rhythm. No pulse deficits. Respiratory: No increased work of breathing, no retractions or nasal flaring. Abdomen/GI: soft, + mild left sided abd tenderness, no rebound, no masses Skin: Warm, dry MS/ Extremity: Pulses equal, no cyanosis. Neuro: Awake and alert, GCS 15 Vital Signs: 08:25 BP 102 / 48; Pulse 108; Resp 18 S; Temp 98.2(TE); Pulse Ox 100% on R/A; Weight 109.77 aa5 kg (R); Height 5 ft. 3 in. (160.02 cm); 09:36 BP 105 / 51; Pulse 57; Resp 19; Pulse Ox 100% on 2 lpm NC; ap3 08:25 Body Mass Index 42.87 (109.77 kg, 160.02 cm) aa5 MDM: 08:25 Patient medically screened. rn 10:11 Differential diagnosis: appendicitis, bowel obstruction, diverticulitis, rn gastroesophageal reflux disease, non-specific abd pain, pancreatitis, Peptic Ulcer Disease, Pyelonephritis, Ureterolithiasis, urinary tract infection. Data reviewed: vital signs, nurses notes, lab test result(s), radiologic studies, CT scan, and as a result, I will discharge patient. Counseling: I had a detailed discussion with the patient and/or guardian regarding: the historical points, exam findings, and any diagnostic results supporting the discharge/admit diagnosis, lab results, radiology results, the need for outpatient follow up, to return to the emergency department if symptoms worsen or persist or if there are any questions or concerns that arise at home. Response to treatment: the patient's symptoms have mildly improved after treatment, and as a result, I will discharge patient. Special discussion: I discussed with the patient/guardian in detail that at this point there is no indication for admission to the hospital. It is understood, however, that if the symptoms persist or worsen the patient needs to return immediately for re-evaluation. 07/11 08:45 Order name: CBC with Diff; Complete Time: : rn 07/11 08:45 Order name: CMP; Complete Time: 09: rn 07/11 08:45 Order name: Lipase; Complete Time: 09: rn 07/11 08:45 Order name: CT Abd/Pelvis - IV Contrast Only; Complete Time: 10:10 rn 07/11 09:36 Order name: Urine Dipstick-Ancillary; Complete Time: 09:54 EDMS 07/11 09:36 Order name: Urine --Ancillary (enter results); Complete Time: 10:10 bd 07/11 08:45 Order name: IV Saline Lock; Complete Time: 09:25 rn 07/11 08:45 Order name: Labs collected and sent; Complete Time: 09:25 rn 07/11 08:45 Order name: Urine Dipstick-Ancillary (obtain specimen); Complete Time: 09:35 rn 07/11 08:45 Order name: Urine Test (obtain specimen); Complete Time: 09:35 rn Administered Medications: 09:35 Drug: Zofran (Ondansetron) 4 mg Route: IVP; Site: right antecubital; ap3 Disposition Summary: 07/11/22 10:12 Discharge Ordered Location: Home rn Problem: new rn Symptoms: have improved rn Condition: Stable rn Diagnosis - Abdominal pain, unspecified rn - UTI/ Urinary tract infection, site not specified rn Followup: rn - With: Private Physician - When: As needed - Reason: Recheck today's complaints, Re-evaluation by your physician Discharge Instructions: - Discharge Summary Sheet rn - Abdominal Pain, Adult rn - Urinary Tract Infection, Adult rn Forms: - Medication Reconciliation Form rn - Thank You Letter rn - 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
--- NOTE | 2022-07-11 10:13 | ER ---
Nurse's Notes [facility] Name: Aleisha Mcqueen Age: 21 yrs Sex: Female : 2000 Arrival Date: 07/11/2022 Time: 08:22 Bed 18 Private MD: Diagnosis: Abdominal pain, unspecified;UTI/ Urinary tract infection, site not specified Presentation: 07/11 08:25 Chief complaint: Patient states: LUQ pain that began yesterday, pt also reports nausea, aa5 denies vomiting/denies diarrhea. 08:25 Coronavirus screen: At this time, the client does not indicate any symptoms associated aa5 with coronavirus-19. Ebola Screen: Patient denies travel to an Ebola-affected area in the 21 days before illness onset. Initial Sepsis Screen: Does the patient meet any 2 criteria? HR > 90 bpm. Does the patient have a suspected source of infection? No. Patient's initial sepsis screen is negative. Risk Assessment: Do you want to hurt yourself or someone else? Patient reports no desire to harm self or others. Onset of symptoms was June 2022. 08:25 Acuity: PINEDA 3 aa5 08:25 Method Of Arrival: Ambulatory aa5 Triage Assessment: 09:37 General: Appears in no apparent distress. Behavior is calm, cooperative, appropriate ap3 for age. Pain: Complains of pain in left lower quadrant Pain began gradually, 1 day ago. Neuro: Level of Consciousness is awake, alert, obeys commands, Oriented to person, place, time, situation, Gait is steady. Cardiovascular: Patient's skin is warm and dry. Respiratory: Airway is patent Respiratory effort is even, unlabored. GI: Abdomen is non-distended, Patient currently denies nausea, vomiting. 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 - Social history:: Smoking status: Patient denies any tobacco usage or history of. - Family history:: not pertinent. - Hospitalizations: : No recent hospitalization is reported. Screenin:37 [facility] ED Fall Risk Assessment (Adult) History of falling in the last 3 months, ap3 including since admission No falls in past 3 months (0 pts). Abuse screen: Denies threats or abuse. Nutritional screening: No deficits noted. Tuberculosis screening: No symptoms or risk factors identified. Assessment: 10:43 GI: Bowel sounds present X 4 quads. Abd is soft and non tender. ap3 Vital Signs: 08:25 BP 102 / 48; Pulse 108; Resp 18 S; Temp 98.2(TE); Pulse Ox 100% on R/A; Weight 109.77 aa5 kg (R); Height 5 ft. 3 in. (160.02 cm); 09:36 BP 105 / 51; Pulse 57; Resp 19; Pulse Ox 100% on 2 lpm NC; ap3 08:25 Body Mass Index 42.87 (109.77 kg, 160.02 cm) aa5 ED Course: 08:22 Patient arrived in ED. am2 08:25 Cornelio Soto MD is Attending Physician. rn 08:25 Arm band placed on. aa5 08:37 Triage completed. aa5 09:25 Greer Hill, RN is Primary Nurse. ap3 09:38 Patient has correct armband on for positive identification. Bed in low position. Call ap3 light in reach. Side rails up X 1. Pulse ox on. NIBP on. Door closed. Noise minimized. 09:38 No provider procedures requiring assistance completed. ap3 09:43 CT Abd/Pelvis - IV Contrast Only In Process Unspecified. EDMS 10:43 IV discontinued, intact, bleeding controlled, No redness/swelling at site. Pressure ap3 dressing applied. Administered Medications: 09:35 Drug: Zofran (Ondansetron) 4 mg Route: IVP; Site: right antecubital; ap3 Medication: 09:38 VIS not applicable for this client. ap3 Outcome: 10:12 Discharge ordered by . rn 10:43 Discharged to home ambulatory. ap3 10:43 Condition: good 10:43 Discharge instructions given to patient, Instructed on discharge instructions, follow up and referral plans. medication usage, Demonstrated understanding of instructions, follow-up care, medications, Prescriptions given X 1. 10:43 Patient left the ED. ap3 Signatures: Dispatcher [employer] EDMS Cornelio Soto MD MD rn Calderon, Audri, RN RN aa5 Greer Bueno am2 Greer Hill, RN RN ap3
[2022-07-11 11:08] VITALS: TEMP 98.2; O2SAT 100
[2022-07-11 11:13] VITALS: BP 105/51
== END 2022-07-11 10:43 | disposition home or self-care (01) ==
LOC: ER 08:12
DX: N39.0 Urinary tract infection, site not specified (principal)
CPT/HCPCS: 85025; 36415; 81025; 81003; 83690; 80053; 74177; Q9967; J2405

== ENCOUNTER 2022-08-11 04:50 | Emergency (ER) | payer BC ==
--- OUTSIDE RECORDS SUMMARY | 2022-08-11 04:53 | XMS REPORT | Continuity of Care Document ---
:2000 Author Organization [facility] t Address [address] [facility] [address] [place] [address] Care Team Providers Name Role Phone PCP, PATIENT DOES NOT HAVE A Primary Care Physician Unavaila ble UNKNOWN, ATTENDING Attending Clinician Unavailable Margie Martin Attending Clinician Doctor Unassigned, [place] Attending Clinician Unavailable EWA PEREZ Attending Clinician Unavailable Lab, Adc Fam Pob I Attending Clinician Unavailable Ewa Adam Attending Clinician Pcp, Patient Does Not Have A Attending Clinician [phone] Pieter RONDON, Roxanne Thrasher Attending Clinician Unavailable Provider, [facility] Attending Clinician Unavailable Payers Payer Name Policy Type Policy Number Effective Date Expiration Date S [facility] - [id number] 2020 00:00:00 OUT OF STATE Problems Condition Condition Condition Status Onset Resolution Last Treating Co mments Source Name Details Category Date Date Treatment Clinician Date No known No known Disease Unive rs active active ity of problems problems [facility] Allergies, Adverse Reactions, Alerts Allergy Allergy Status Severity Reaction(s) Onset Inactive Treating Comm ents Source Name Type Date Date Clinician Amoxicil Propensi Active Hives 2015-06 Univer s rajesh ty to 0-06 ity of adverse 00:00: [place] reaction [address] [place] [address] Branch AMOXICIL DRUG Active Hives 2015-06 Univers RAJESH INGREDI 0-06 ity of 00:00: [address] Social History Social Habit Start Date Stop Date Quantity Comments Source Exposure to Unable to assess Univers ity of SARS-CoV-2 [place] [facility] (event) Branch Alcohol intake 2021-03-09 2021-03-09 Current drinker Unive rsity of 00:00:00 00:00:00 of alcohol [place] [facility] (finding) Branch Alcohol Comment 2020-01-14 2020-01-14 social Universit y of 00:00:00 00:00:00 [place] [facility] History SDOH 2020-01-14 2020-01-14 99 University o f Alcohol Frequency 00:00:00 00:00:00 [place] [facility] History SDOH 2020-01-14 2020-01-14 99 University o f Alcohol Std 00:00:00 00:00:00 [place] [facility] Drinks Branch History SDNM 2020-01-14 2020-01-14 99 University o f Alcohol Binge 00:00:00 00:00:00 [place] [facility] Tobacco use and 2015-04-29 2015-04-29 Never used Universit y of exposure 00:00:00 00:00:00 [facility] Sex Ass[birth year] At [birth year] Universit y of 00:00:00 00:00:00 [facility] Smoking Status Start Date Stop Date Source Never smoker [facility] Medications Ordered Filled Start Stop Current Ordering Indication Dosage Frequency Signature Comments Components Source Medication Medication Date Date Medication? Clinician (SIG) Name Name No known No Univers medications 9-29 ity of 18:27: [place] [facility] Branch No known No Univers medications 8-05 ity of 10:22: [place] [facility] Branch butalbital- Yes [id number] 1{tbl} Take 1 Univers acetaminoph 1-18 tablet by ity of en-caff 00:00: mouth [place] 50-325-40 00 every 6 Medical mg tablet (six) Branch hours as needed for Headache (Headache) . butalbital- 2020- No [id number] 1{tbl} Take 1 Univers acetaminoph 1-18 08-05 [...] Branch No known No Univers medications ity [facility] No known No Univers medications ity [facility] No known No Univers medications ity [facility] No known No [facility] Immun[facility] Ordered Immunization Filled Immunization Date Status Commen ts Source Name Name Meningococcal 2015-04-29 Completed [facility] 00:00:00 [facility] yamini (groups A, C, Y and Branc h W-135) conjugate vaccine (MCV4P) HPV 2015-04-29 Completed University of 00:00:00 [facility] Meningococcal 2015-04-29 Completed University of Polysaccharide 00:00:00 [place] [facility] yamini (groups A, C, Y and Branc h W-135) conjugate vaccine (MCV4P) HPV 2015-04-29 Completed University of 00:00:00 [facility] Meningococcal 2015-04-29 Completed University of Polysaccharide 00:00:00 [place] [facility] yamini (groups A, C, Y and Branc h W-135) conjugate vaccine (MCV4P) HPV 2015-04-29 Completed University of 00:00:00 [facility] Meningococcal 2015-04-29 Completed University of Polysaccharide 00:00:00 [place] [facility] yamini (groups A, C, Y and Branc h W-135) conjugate vaccine (MCV4P) HPV 2015-04-29 Completed University of 00:00:00 [facility] Meningococcal 2015-04-29 Completed University of Polysaccharide 00:00:00 [place] [facility] yamini (groups A, C, Y and Branc h W-135) conjugate vaccine (MCV4P) HPV 2015-04-29 Completed University of 00:00:00 [facility] Meningococcal 2015-04-29 Completed University of Polysaccharide 00:00:00 [place] [facility] yamini (groups A, C, Y and Branc h W-135) conjugate vaccine (MCV4P) HPV 2015-04-29 Completed University of 00:00:00 [facility] Meningococcal 2015-04-29 Completed University of Polysaccharide 00:00:00 [place] [facility]i yamini (groups A, C, Y and Branc h W-135) conjugate vaccine (MCV4P) HPV 2015-04-29 Completed University of 00:00:00 [facility] Meningococcal 2015-04-29 Completed University of Polysaccharide 00:00:00 [place] [facility] yamini (groups A, C, Y and Branc h W-135) conjugate vaccine (MCV4P) HPV 2015-04-29 Completed University of 00:00:00 [facility] Vital Signs Vital Name Observation Time Observation Value Comments Source Heart rate 2021-03-10 00:12:00 70 /[facility] Systolic blood 2021-03-10 00:12:00 125 mm[Hg] Univer sity of pressure [facility] Diastolic blood 2021-03-10 00:12:00 70 mm[Hg] Unive rsity of pressure [place] [facility] Body temperature 2021-03-09 23:24:00 37.17 Lauren Univ ersity of [place] [facility] Respiratory rate 2021-03-09 23:24:00 18 /min Univ ersity of [place] [facility] Body weight 2021-03-09 23:24:00 102.059 kg Universi ty of [place] [facility] BMI 2021-03-09 23:24:00 38.62 kg/m2 Universi ty of [place] [facility] Oxygen saturation in 2021-03-09 23:24:00 99 /min University of Arterial blood by [facility] Pulse oximetry Branch Systolic blood 2020-01-14 14:31:00 119 mm[Hg] Univer sity of pressure [place] [facility] Diastolic blood 2020-01-14 14:31:00 77 mm[Hg] Unive rsity of pressure [place] [facility] Heart rate 2020-01-14 14:31:00 67 /min Universi ty of [place] [facility] Body temperature 2020-01-14 14:31:00 37.06 Lauren Univ ersity of [place] [facility] Respiratory rate 2020-01-14 14:31:00 20 /min Univ ersity of [place] [facility] Body height 2020-01-14 14:31:00 162.6 cm Universi ty of [place] [facility] Body weight 2020-01-14 14:31:00 102.059 kg Universi ty of [place] [facility] BMI 2020-01-14 14:31:00 38.62 kg/m2 Universi ty of [place] [facility] Oxygen saturation in 2020-01-14 14:31:00 98 /min University of Arterial blood by [facility] Pulse oximetry Branch Systolic blood 2020-01-14 14:31:00 119 mm[Hg] Univer sity of pressure [place] [facility] Diastolic blood 2020-01-14 14:31:00 77 mm[Hg] Unive rsity of pressure [place] [facility] Heart rate 2020-01-14 14:31:00 67 /min Universi ty [facility] [place] [facility] Body temperature 2020-01-14 14:31:00 37.06 Lauren Univ ersity of [place] [facility] Respiratory rate 2020-01-14 14:31:00 20 /min Univ ersity of [place] [facility] Body height 2020-01-14 14:31:00 162.6 cm Universi ty of [place] [facility] Body weight 2020-01-14 14:31:00 102.059 kg Universi ty of [facility] BMI 2020-01-14 14:31:00 38.62 kg/m2 Universi ty [facility] Oxygen saturation in 2020-01-14 14:31:00 98 /min University Arterial blood by [facility] Pulse oximetry Branch Procedures Procedure Date / Time Performed Performing Clinician Sour e NOTICE OF PRIVACY 2021-03-09 23:19:58 Doctor Unassigned, No Univ [facility] PRACTICES Name Medical Branch CONSENT/REFUSAL FOR 2021-03-09 23:19:39 Doctor Unassigned, [facility] Name Medical Branch TREATMENT Encounters Start End Encounter Admission Attending Care Care Encounter Source Date/Time Date/Time Type Type Clinicians Facility Department ID 2021-04-12 Emergency [facility] [id number] Univers 02:31:18 ity of [facility] 2021-06-20 2021-06-20 Outpatient R MARSHA [facility] [id number] Univers 09:30:00 09:30:00 ATTENDING ity [facility] 2021-03-09 2021-03-09 Emergency Margie Jones [facility] [id number] Univers 18:26:00 19:14:00 Katelin Salazar [id number] i [facility] [id number] [facility] [id number] [facility] 084 Branch 2021-03-09 2021-03-09 Orders Doctor ENCINAS [id number] Univers 00:00:00 00:00:00 Only UnassMUSA alcocer [id number] ity of [place] [facility] [id number] [place] [address] [id number] [facility] 009 Branch 2020-08-17 2020-08-17 Outpatient R CHRIS [facility] [id number] Univers 13:00:00 13:00:00 EWA kaufman [facility] 2020-08-17 2020-08-17 Laboratory Lab, Adc Fam Pob I [facility] [id number]. [id number] Univers 11:01:51 11:21:51 Only Ewa Perez [id number] ity of [place] [id number] Kit as Professio [phone] [place] [address] [place] [address] Office Building One 2020-01-16 2020-01-16 Letter CE Leone [id number] 00:00:00 00:00:00 (Out) Patient MUSA [id number] Does Not HOSPITAL [id number] Have A [id number] [id number] 2020-01-16 2020-01-16 Letter CE Leone [id number] Univers 00:00:00 00:00:00 (Out) Patient MUSA [id number] it y of Does Not HOSPITAL 4.2.7.2.686 [place] A [id number] [address] 2020-01-15 2020-01-15 Letter Pcp, [facility] 1.2.840.114 [id number] 00:00:00 00:00:00 (Out) Patient Health [id number] Does Not [place] [id number] Have A Professio [phone] [place] [address] Office Building [facility] 2020-01-15 2020-01-15 Telephone CE [place] [id number] 00:00:00 00:00:00 Roxanne S MUSA [id number] HOSPITAL [id number] [id number] 2020-01-15 2020-01-15 Letter Pcp, [facility] [id number] Univers 00:00:00 00:00:00 (Out) Patient Health [id number] it y of Does Not [place] 4[place].7.2.686 [place] Professio [phone] [address] Office Building One 2020-01-15 2020-01-15 Telephone CE [place] [id number] Univers 00:00:00 00:00:00 Roxanne S MUSA [id number] ity of HOSPITAL 4.2.7.2.686 Kit as [id number] [address] 2020-01-14 2020-01-14 Urgent Provider, [facility] [id number] 08:37:59 10:06:38 Care [facility] [id number] Care [place] [id number] Professio [phone] nal [facility] Office Building One 2020-01-14 2020-01-14 Urgent Provider, [facility] [id number] [facility] 08:37:59 10:06:38 Care DeidraLeslie [facility]ung[facility] [id number] ity of [place] [id number] Kit as Professio [phone] [place] [address] Office Building [facility] 2020-01-14 2020-01-14 Outpatient R [facility] [id number] Univers 08:20:00 08:20:00 ity of [facility] 2020-01-14 2020-01-14 Letter Doctor CE 1.2.840.114 [id number] 00:00:00 00:00:00 (Out) Unassigned, MUSA [id number] [place] [facility] 4.2.7.2.686 [id number] [facility] 2020-01-14 2020-01-14 Letter Doctor CE 1.2.840.114 [id number] Univers 00:00:00 00:00:00 (Out) Unassigned, MUSA [id number] ity of [place] [facility] [id number] Kit as [phone] [address] Results This patient has no known results.
[2022-08-11] MEDS ORDERED: ACETAMINOPHEN 500 MG TAB ONE (05:32)
[2022-08-11] MEDS ORDERED: DIPHENHYDRAMINE 50 MG/ML VIAL ONE (05:32)
[2022-08-11] MEDS ORDERED: KETOROLAC 30 MG/ML INJ ONE (05:32)
[2022-08-11] MEDS ORDERED: METOCLOPRAMIDE 10 MG/2mL INJ ONE (05:32)
[2022-08-11] MEDS ORDERED: NA CHLORIDE 0.9% 1,000 ML ONE (05:32)
--- NOTE | 2022-08-11 06:41 | EDPHYS ---
Physician Documentation [facility] Name: Aleisha Mcqueen Age: 21 yrs Sex: Female : 2000 Arrival Date: 08/11/2022 Time: 04:53 Bed 5 Private MD: ED Physician Camilo Hampton HPI: 08/11 05:34 This 21 yrs old Female presents to ER via Ambulatory with complaints of Eye rt Pain, Nausea. 05:34 Patient presents to the ED with about 2 hours of pain behind the right eye with rt associated nausea and vomiting. She states that this is typical when she develops a migraine. The patient denies trauma, neck stiffness, fever, other acute complaints. Pain is aching nature, nonradiating, moderate in severity, no other aggravating or elevating factors. She does report light sensitivity.. 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 Last tetanus immunization: < 10 years ago Flu vaccine is not up to date. - Social history:: Smoking status: Patient denies any tobacco usage or history of. Patient/guardian denies using alcohol, street drugs. - Family history:: not pertinent. ROS: 05:34 Constitutional: Negative for fever, chills, and weight loss, Cardiovascular: Negative rt for chest pain, palpitations, and edema, Respiratory: Negative for shortness of breath, cough, wheezing, and pleuritic chest pain, Skin: Negative for injury, rash, and discoloration, Psych: Negative for depression, anxiety, suicide ideation, homicidal ideation, and hallucinations. 05:34 Eyes: Positive for pain, Negative for redness. 05:34 Abdomen/GI: Positive for nausea and vomiting, Negative for abdominal pain. 05:34 Neuro: Positive for headache, Negative for altered mental status. Exam: 05:34 Constitutional: This is a well developed, well nourished patient who is awake, alert, rt and in no acute distress. Head/Face: Normocephalic, atraumatic. Eyes: Pupils equal round and reactive to light, extra-ocular motions intact. Lids and lashes normal. Conjunctiva and sclera are non-icteric and not injected. Cornea within normal limits. Periorbital areas with no swelling, redness, or edema. Neck: Trachea midline, no thyromegaly or masses palpated, and no cervical lymphadenopathy. Supple, full range of motion without nuchal rigidity, or vertebral point tenderness. No Meningismus. Chest/axilla: Normal chest wall appearance and motion. Nontender with no deformity. No lesions are appreciated. Cardiovascular: Regular rate and rhythm with a normal S1 and S2. No gallops, murmurs, or rubs. Normal PMI, no JVD. No pulse deficits. Respiratory: Lungs have equal breath sounds bilaterally, clear to auscultation and percussion. No rales, rhonchi or wheezes noted. No increased work of breathing, no retractions or nasal flaring. Abdomen/GI: Soft, non-tender, with normal bowel sounds. No distension or tympany. No guarding or rebound. No evidence of tenderness throughout. Skin: Warm, dry with normal turgor. Normal color with no rashes, no lesions, and no evidence of cellulitis. MS/ Extremity: Pulses equal, no cyanosis. Neurovascular intact. Full, normal range of motion. Neuro: Awake and alert, GCS 15, oriented to person, place, time, and situation. Cranial nerves II-XII grossly intact. Motor strength 5/5 in all extremities. Sensory grossly intact. Cerebellar exam normal. Normal gait. Psych: Awake, alert, with orientation to person, place and time. Behavior, mood, and affect are within normal limits. Vital Signs: 05:12 BP 107 / 69; Pulse 64; Resp 18; Temp 98.2; Pulse Ox 100% on R/A; Weight 110.68 kg; pf1 Height 6 ft. 5 in. (195.58 cm); Pain 8/10; 06:46 BP 112 / 72; Pulse 55; Resp 18 S; Pulse Ox 100% on R/A; as6 05:12 Body Mass Index 28.93 (110.68 kg, 195.58 cm) pf1 MDM: 05:12 Patient medically screened. rt 06:48 Differential diagnosis: Migraine, headache. Data reviewed: vital signs. Test considered rt but Not performed: CT: Consistent with typical migraine, CT scan, lumbar puncture not indicated, very low suspicion for cranial hemorrhage, tumor, meningitis, encephalitis.. Counseling: I had a detailed discussion with the patient and/or guardian regarding: the historical points, exam findings, and any diagnostic results supporting the discharge/admit diagnosis, the need for outpatient follow up, to return to the emergency department if symptoms worsen or persist or if there are any questions or concerns that arise at home. Response to treatment: the patient's symptoms have markedly improved after treatment. Administered Medications: 05:49 Drug: Ketorolac 15 mg Route: IVP; Site: right antecubital; as6 06:52 Follow up: Response: No adverse reaction as6 05:49 Drug: Tylenol 1000 mg Route: PO; as6 06:52 Follow up: Response: No adverse reaction 6 05:49 Drug: Reglan (metoCLOPramide) 10 mg Route: IVP; Site: right antecubital; as6 06:52 Follow up: Response: No adverse reaction as6 05:49 Drug: Benadryl (diphenhydrAMINE) 25 mg Route: IVP; Site: right antecubital; as6 06:52 Follow up: Response: No adverse reaction 6 05:49 Drug: NS 0.9% 1000 ml Route: IV; Rate: 1 bolus; Site: right antecubital; as6 06:52 Follow up: Response: No adverse reaction; IV Status: Completed infusion; IV Intake: as6 1000ml Disposition Summary: 08/11/22 06:41 Discharge Ordered Location: Home rt Problem: an ongoing problem rt Symptoms: have improved rt Condition: Stable rt Diagnosis - Migraine, unspecified, not intractable, without status migrainosus rt Followup: rt - With: Private Physician - When: 2 - 3 days - Reason: Discharge Instructions: - Discharge Summary Sheet rt - Recurrent Migraine Headache, [id number] rt Forms: - Work release form as6 - Medication Reconciliation Form rt - Thank You Letter rt - Antibiotic Education rt - Prescription Opioid Use rt Signatures: Lamberto Fairchild RN RN as6 Camilo Hampton MD MD rt Lindsay robles RN RN pf1
--- NOTE | 2022-08-11 06:41 | ER ---
Nurse's Notes [facility] Name: Aleisha Mcqueen Age: 21 yrs Sex: Female : 2000 Arrival Date: 08/11/2022 Time: 04:53 Bed 5 Private MD: Diagnosis: Migraine, unspecified, not intractable, without status migrainosus Presentation: 08/11 05:12 Chief complaint: Patient states: right eye pain of 8 with photosensitivity,onset 1 hour pf1 ago with nausea and vomiting x 1 episode. Coronavirus screen: Vaccine status: Patient reports being unvaccinated. Client denies travel out of the [place] in the last 14 days. At this time, the client does not indicate any symptoms associated with coronavirus-19. Ebola Screen: Patient negative for fever greater than or equal to 101.5 degrees Fahrenheit, and additional compatible Ebola Virus Disease symptoms. Mechanism of Injury: No Mechanism of Injury. The patient denies any loss of vision. Initial Sepsis Screen: Does the patient meet any 2 criteria? No. Patient's initial sepsis screen is negative. Does the patient have a suspected source of infection? No. Patient's initial sepsis screen is negative. Risk Assessment: Do you want to hurt yourself or someone else? Patient reports no desire to harm self or others. 05:12 Method Of Arrival: Ambulatory pf1 05:12 Acuity: PINEDA 3 pf1 05:48 Onset of symptoms was August 11, 2022. 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 Last tetanus immunization: < 10 years ago Flu vaccine is not up to date. - Social history:: Smoking status: Patient denies any tobacco usage or history of. Patient/guardian denies using alcohol, street drugs. - Family history:: not pertinent. Screenin:[address] [facility] ED Fall Risk Assessment (Adult) History of falling in the last 3 months, pf1 including since admission No falls in past 3 months (0 pts) Confusion or Disorientation No (0 pts) Intoxicated or Sedated No (0 pts) Impaired Gait No (0 pts) Mobility Assist Device Used No (0 pt) Altered Elimination No (0 pt) Score/Fall Risk Level 0 - 2 = Low Risk Oriented to surroundings, Maintained a safe environment, Educated pt \T\ family on fall prevention, incl call for assistance when getting out of bed, Assessed \T\ reinforced patient's understanding of fall precautions, Provided non-skid footwear, Hourly rounding (assess needs \T\ fall precautionary measures) done, Used ambulatory aids as needed (educated on \T\ assisted with), Used gait belt as appropriate. Abuse screen: Denies threats or abuse. Nutritional screening: No deficits noted. Tuberculosis screening: No symptoms or risk factors identified. Assessment: 05:48 General: Appears uncomfortable, Behavior is calm, cooperative. Pain: Complains of pain as6 in head. Neuro: Reports headache in right frontal area, photophobia. Respiratory: Respiratory effort is even, unlabored. 06:53 Reassessment: Patient states feeling better. Patient states symptoms have improved. as6 Vital Signs: 05:12 BP 107 / 69; Pulse 64; Resp 18; Temp 98.2; Pulse Ox 100% on R/A; Weight 110.68 kg; pf1 Height 6 ft. 5 in. (195.58 cm); Pain 8/10; 06:46 BP 112 / 72; Pulse 55; Resp 18 S; Pulse Ox 100% on R/A; as6 05:12 Body Mass Index 28.93 (110.68 kg, 195.58 cm) pf1 ED Course: 04:53 Patient arrived in ED. ja2 05:04 Camilo Hampton MD is Attending Physician. rt 05:07 Brittney Porter, ALCON is Primary Nurse. kd3 05:14 Triage completed. pf1 05:47 Arm band placed on. as6 05:48 Bed in low position. Call light in reach. Pulse ox on. NIBP on. Warm blanket given. as6 05:49 Inserted saline lock: 20 gauge in right antecubital area, using aseptic technique. as6 06:50 No provider procedures requiring assistance completed. IV discontinued, intact, as6 bleeding controlled, No redness/swelling at site. Pressure dressing applied. Administered Medications: 05:49 Drug: Ketorolac 15 mg Route: IVP; Site: right antecubital; as6 06:52 Follow up: Response: No adverse reaction as6 05:49 Drug: Tylenol 1000 mg Route: PO; as6 06:52 Follow up: Response: No adverse reaction as6 05:49 Drug: Reglan (metoCLOPramide) 10 mg Route: IVP; Site: right antecubital; as6 06:52 Follow up: Response: No adverse reaction as6 05:49 Drug: Benadryl (diphenhydrAMINE) 25 mg Route: IVP; Site: right antecubital; as6 06:52 Follow up: Response: No adverse reaction as6 05:49 Drug: NS 0.9% 1000 ml Route: IV; Rate: 1 bolus; Site: right antecubital; as6 06:52 Follow up: Response: No adverse reaction; IV Status: Completed infusion; IV Intake: as6 1000ml Medication: 06:46 VIS not applicable for this client. as6 Intake: 06:52 IV: 1000ml; Total: 1000ml. as6 Outcome: 06:41 Discharge ordered by MD. rt 06:50 Discharged to home ambulatory, with significant other. as6 06:50 Condition: stable 06:50 Discharge instructions given to patient, Instructed on discharge instructions, follow up and referral plans. Demonstrated understanding of instructions, follow-up care. 06:53 Patient left the ED. as6 Signatures: Roxanne Davis Ashby, RN RN as6 Brittney Porter RN RN kd3 Camilo Hampton MD MD rt Lindsay robles RN RN pf1 Corrections: (The following items were deleted from the chart) 05:49 05:48 Neuro: Reports headache in left frontal area, as6 as6
[2022-08-11 06:58] VITALS: TEMP 98.2; O2SAT 100
[2022-08-11 06:59] VITALS: BP 112/72
== END 2022-08-11 06:53 | disposition home or self-care (01) ==
LOC: ER 04:50
DX: G43.009 Migraine without aura, not intractable, without status migrainosus (principal)
CPT/HCPCS: 96361; 96375; 96374; 99283; J2765; J1200; J7030

== ENCOUNTER 2023-02-02 08:20 | Emergency (ER) | payer BC ==
--- OUTSIDE RECORDS SUMMARY | 2023-02-02 08:23 | XMS REPORT | Continuity of Care Document ---
:2000 Author Organization [facility] t Address [address] [facility] [address] [place] [address] Care Team Providers Name Role Phone Pcp, Patient Does Not Have A Primary Care Physician [phone] JOSSELYN JUDGE Attending Clinician Unavailable Doctor Unassigned, [place] Attending Clinician Unavailable UNKNOWN, ATTENDING Attending Clinician Unavailable Margie Martin Attending Clinician EWA PEREZ Attending Clinician Unavailable Lab, Adc Fam Pob I Attending Clinician Unavailable Ewa Adam Attending Clinician Pcp, Patient Does Not Have A Attending Clinician [phone] Josselyn Stapleton RN Attending Clinician Unavailable Provider, [facility] Attending Clinician Unavailable Payers Payer Name Policy Type Policy Number Effective Date Expiration Date S sophy [facility] - [id number] 2020 00:00:00 OUT OF STATE Problems Condition Condition Condition Status Onset Resolution Last Treating Co mments Source Name Details Category Date Date Treatment Clinician Date No known No known Disease Unive rs active active ity of problems problems [facility] [place] Allergies, Adverse Reactions, Alerts Allergy Allergy Status Severity Reaction(s) Onset Inactive Treating Comm ents Source Name Type Date Date Clinician Amoxicil Propensi Active Hives 2015-06 Univer s rajesh ty to 0-06 ity of adverse 00:00: [place] reaction 00 Medical s Branch AMOXICIL DRUG Active Hives 2015-06 Univers RAJESH INGREDI 0-06 ity of 00:00: [place] [facility] Social History Social Habit Start Date Stop Date Quantity Comments Source Exposure to Unable to assess Univers ity of SARS-CoV-2 [facility] (event) Branch Alcohol intake 2022-11-20 2022-11-20 Current drinker Unive rsity of 00:00:00 00:00:00 of alcohol [facility] (finding) Branch Tobacco use and 2020-01-14 2020-01-14 Smokeless tobacco Un iversity of exposure 00:00:00 00:00:00 non-user [facility] Alcohol Comment 2020-01-14 2020-01-14 social Universit y of 00:00:00 00:00:00 [facility] History SDKY 2020-01-14 2020-01-14 99 University o f Alcohol Frequency 00:00:00 00:00:00 [place] [facility] History [facility] 2020-01-14 2020-01-14 99 University o f Alcohol Std 00:00:00 00:00:00 [place] [facility] Drinks [facility] History [facility] 2020-01-14 2020-01-14 99 University o f Alcohol Binge 00:00:00 00:00:00 [place] [facility] Sex Ass[birth year] At [birth year] Universit y of 00:00:00 00:00:00 [facility] Smoking Status Start Date Stop Date Source Never smoked tobacco [facility] Medications Ordered Filled Start Stop Current Ordering Indication Dosage Frequency Signature Comments Components Source Medication Medication Date Date Medication? Clinician (SIG) Name Name phentermine Yes 37.5mg Take 1 Un aisha 37.5 mg 6-12 capsule by ity of capsule 09:04: mouth [place] 20 every Medical morning. Branch phentermine Yes 37.5mg Take 1 Un aisha 37.5 mg 6-12 capsule by ity of capsule 09:04: mouth [place] 20 every Medical morning. Branch SUMAtriptan 2022- Yes [id number] 50mg Take 1 Univers 50 mg 11-20 tablet by ity of tablet 00:00: 04:59 [place] :[place] now for 1 Medical dose. Max Branch 200mgrs in 24hr, may retake 2 hours later. SUMAtriptan 2022- Yes [id number] 50mg Take 1 Univers 50 mg 6-12 06-13 tablet by ity of tablet 00:00: 04:59 [place] 00 :[place] now for 1 Medical dose. Max Branch 200mgrs in 24hr, may retake 2 hours later. No known No Univers medications 9-29 ity of 18:27: [place] 37 Medical Branch No known No Univers medications 8-05 ity of 10:22: [place] 17 Medical Branch butalbital- Yes [id number] 1{tbl} Take 1 Univers acetaminoph 1-18 tablet by ity of en-caff 00:00: mouth [place] 50-325-40 00 every 6 Medical mg tablet (six) Branch hours as needed for Headache (Headache) . butalbital- 2019- No [id number] 1{tbl} Take 1 Univers acetaminoph 1-18 08-05 [...] mg 00 daily. Medical tablet Branch azithromyci 2015-06 2020- No 250mg Take 1 Un aisha n 0-06 08-05 tablet by ity of (ZITHROMAX) 00:00: 00:[place] 250 mg 00 :00 daily. Medical tablet Branch phenazopyri 2015-06- No 200mg Take 1 Un aisha dine 0-06 08-05 tablet by ity of (PYRIDIUM) 00:00: 00:00 mouth 3 Kit as 200 mg 00 :00 (three) Medical tablet times Branch daily. azithromyci 2015-06 2020- No 250mg Take 1 Un aisha n 0-06 08-05 tablet by ity of (ZITHROMAX) 00:00: 00:[place] 250 mg 00 :00 daily. Medical tablet Branch akithromyci 2014-06 Yes 250mg Take 1 Tab Univers n 0-30 by mouth ity of (ZITHROMAX 00:00: daily. [place] Z-CHLOE) 250 00 Medical mg tablet Branch azithromyci 2014-06 2020- No 250mg Take 1 Tab Univers n 0-30 08-05 by mouth ity of (ZITHROMAX 00:00: 00:00 [place]. [place] Z-CHLOE) 250 00 :00 Medical mg tablet Branch No known No Univers medications ity of [facility] No known No Univers medications ity [facility] No known No Univers medications ity [facility] No known No [facility] Immunizations Ordered Immunization Filled Immunization Date Status Commen ts Source Name Name Meningococcal 2015-04-29 Completed University of Polysaccharide 00:00:00 [place] [facility] (groups A, C, Y and Branc h W-135) conjugate vaccine (MCV4P) HPV 2015-04-29 Completed University of 00:00:00 [facility] Meningococcal 2015-04-29 Completed University of Polysaccharide 00:00:00 [place] [facility] (groups A, C, Y and Branc h W-135) conjugate vaccine (MCV4P) HPV 2015-04-29 Completed University of 00:00:00 [facility] Meningococcal 2015-04-29 Completed University of Polysaccharide 00:00:00 [place] [facility] (groups A, C, Y and Branc h W-135) conjugate vaccine (MCV4P) HPV 2015-04-29 Completed University of 00:00:00 [facility] Meningococcal 2015-04-29 Completed University of Polysaccharide 00:00:00 [place] [facility] (groups A, C, Y and Branc h W-135) conjugate vaccine (MCV4P) HPV 2015-04-29 Completed University of 00:00:00 [facility] Meningococcal 2015-04-29 Completed University of Polysaccharide 00:00:00 [place] [facility] (groups A, C, Y and Branc h W-135) conjugate vaccine (MCV4P) HPV 2015-04-29 Completed University of 00:00:00 [facility] Meningococcal 2015-04-29 Completed University of Polysaccharide 00:00:00 [place]amini (groups A, C, Y and Branc h W-135) conjugate vaccine (MCV4P) HPV 2015-04-29 Completed University of 00:00:00 [facility] Meningococcal 2015-04-29 Completed University of Polysaccharide 00:00:00 [place] [facility] (groups A, C, Y and Branc h W-135) conjugate vaccine (MCV4P) HPV 2015-04-29 Completed University of 00:00:00 [facility] Meningococcal 2015-04-29 Completed University of Polysaccharide 00:00:00 [place] Med[facility] yamini (groups A, C, Y and Branc h W-135) conjugate vaccine (MCV4P) HPV 2015-04-29 Completed University of 00:00:00 [facility] Meningococcal 2015-04-29 Completed University of Polysaccharide 00:00:00 [place] [facility] (groups A, C, Y and Branc h W-135) conjugate vaccine (MCV4P) HPV 2015-04-29 Completed University of 00:00:00 [facility] Meningococcal 2015-04-29 Completed University of Polysaccharide 00:00:00 [place] [facility] (groups A, C, Y and Branc h W-135) conjugate vaccine (MCV4P) HPV 2015-04-29 Completed University of 00:00:00 [facility] Meningococcal 2015-04-29 Completed University of Polysaccharide 00:00:00 [place] [facility] (groups A, C, Y and Branc h W-135) conjugate vaccine (MCV4P) HPV 2015-04-29 Completed University of 00:00:00 [facility] Vital Signs Vital Name Observation Time Observation Value Comments Source Systolic blood 2022-11-20 14:03:00 130 mm[Hg] Univer sity of pressure [facility] Diastolic blood 2022-11-20 14:03:00 78 mm[Hg] Unive rsity of pressure [facility] Heart rate 2022-11-20 14:03:00 74 /min [facility] Body height 2022-11-20 14:03:00 162.6 cm [facility] Body weight 2022-11-20 14:03:00 107.185 kg [facility] BMI 2022-11-20 14:03:00 40.56 kg/m2 [facility] Heart rate 2021-03-10 00:12:00 70 /min Universi ty of [place] [facility] Systolic blood 2021-03-10 00:12:00 125 mm[Hg] Univer sity of pressure [facility] Diastolic blood 2021-03-10 00:12:00 70 mm[Hg] Unive rsity of pressure [facility] Body temperature 2021-03-09 23:24:00 37.17 Lauren Univ ersity of [facility] Respiratory rate 2021-03-09 23:24:00 18 /min Univ ersity of [facility] Body weight 2021-03-09 23:24:00 102.059 kg Universi ty of [place] [facility] BMI 2021-03-09 23:24:00 38.62 kg/m2 Universi ty of [place] [facility] Oxygen saturation in 2021-03-09 23:24:00 99 /min University of Arterial blood by [facility] Pulse oximetry Branch Systolic blood 2020-01-14 14:31:00 119 mm[Hg] Univer sity of pressure [facility] Diastolic blood 2020-01-14 14:31:00 77 mm[Hg] Unive rsity of pressure [facility] Heart rate 2020-01-14 14:31:00 67 /min Universi ty of [place] [facility] Body temperature 2020-01-14 14:31:00 37.06 Lauren Univ ersity of [place] [facility] Respiratory rate 2020-01-14 14:31:00 20 /min Univ ersity of [facility] Body height 2020-01-14 14:31:00 162.6 cm Universi ty of [facility] Body weight 2020-01-14 14:31:00 102.059 kg Universi ty of [place] [facility] BMI 2020-01-14 14:31:00 38.62 kg/m2 Universi ty of [place] [facility] Oxygen saturation in 2020-01-14 14:31:00 98 /min University of Arterial blood by [facility] Pulse oximetry Branch Systolic blood 2020-01-14 14:31:00 119 mm[Hg] Univer sity of pressure [place] [facility] Diastolic blood 2020-01-14 14:31:00 77 mm[Hg] Unive rsity of pressure [facility] Heart rate 2020-01-14 14:31:00 67 /min Universi ty of [place] [facility] Body temperature 2020-01-14 14:31:00 37.06 Lauren [facility] Respiratory rate 2020-01-14 14:31:00 20 /min [facility] Body height 2020-01-14 14:31:00 162.6 cm [facility] Body weight 2020-01-14 14:31:00 102.059 kg [facility] BMI 2020-01-14 14:31:00 38.62 kg/m2 [facility] Oxygen saturation in 2020-01-14 14:31:00 98 /min [facility] Arterial blood by [facility] Pulse oximetry [place] Procedures Procedure Date / Time Performed Performing Clinician Sour e ASSIGNMENT OF BENEFITS 2022-11-20 13:54:40 Doctor Unassigned, No [facility] NOTICE OF PRIVACY 2021-03-09 23:19:58 Doctor Unassigned, No [facility] CONSENT/REFUSAL FOR 2021-03-09 23:19:39 [facility] TREATMENT Encounters Start End Encounter Admission Attending Care Care Encounter Source Date/Time Date/Time Type Type Clinicians Facility Department ID 2021-04-12 Emergency [facility] [id number] Univers 02:31:18 y [facility] 2023-11-23 2023-11-23 Outpatient Mellisa JUDGE [facility] [id number] Univers 08:00:00 08:00:00 [facility] 2022-11-20 2022-11-20 Outpatient Mellisa JUDGE [facility] [id number] Univers 09:00:00 09:26:27 [facility] 2022-11-20 2022-11-20 Office [facility] [id number] Univers 09:00:00 09:26:27 Visit [facility] 350.1.13.10 it y of AILYN 4.2.7.2.686 Kit as JACK?BLEA [id number] De krishna [address] MEDICAL OFFICE BUILDING 2022-11-20 2022-11-20 Orders Doctor ENCINAS 1.2.840.114 [id number] Univers 00:00:00 00:00:00 Only Unassigned, MUSA 350.1.13.10 ity of [place] [facility] 4.2.7.2.686 Kit as [id number] [address] 2021-06-20 2021-06-20 Outpatient R UNKNOWN, [facility] [id number] Univers 09:30:00 09:30:00 ATTENDING ity [facility] 2021-03-09 2021-03-[address] [facility] [id number] Univers 18:26:00 19:14:00 Katelin Salazar 350.1.13.10 i ty [facility] 4.2.7.2.686 [place] [facility] [phone] [facility] 0[address] [place] 2021-03-09 2021-03-09 Orders Doctor CE 1.2.840.114 [id number] Univers 00:00:00 00:00:00 Only Unassigned, MUSA 350.1.13.10 ity of [place] [facility] 4.2.7.2.686 Kit as [phone] [address] 2020-08-17 2020-08-17 Outpatient R CHRIS [facility] [id number] Univers 13:00:00 13:00:00 EWA canadalidia [facility] 2020-08-17 2020-08-17 Laboratory Lab, Adc Fam Pob I [facility] 1.2. [id number] Univers 11:01:51 11:21:[address] [facility] [id number] ity of [place] 4.2.7.2.686 Kit [address] Professio [phone] [facility] [address] [place] Office Building One 2020-01-16 2020-01-16 Letter CE Leone 1.2.840.114 [id number] 00:00:00 00:00:00 (Out) Patient MUSA 350.1.13.10 Does Not HOSPITAL 4.2.7.2.686 Have A [id number] 2020-01-16 2020-01-16 Letter CE Leone 1.2.840.114 [id number] Univers 00:00:00 00:00:00 (Out) Patient MUSA 350.1.13.10 it y of Does Not HOSPITAL 4.[place].7.2.686 [place] Have A [phone] [address] 2020-01-15 2020-01-15 Letter Pcp, [facility] 1.2.840.114 [id number] 00:00:00 00:00:00 (Out) Patient Health [id number] Does Not [place] 4.2.7.2.686 Have A Professio [phone] [place] [address] Office Building [facility] 2020-01-15 2020-01-15 Telephone CE Stapleton [id number] 00:00:00 00:00:00 Josselyn S MUSA 350.1.13.10 HOSPITAL 4.2.7.2.686 [id number] [facility] 2020-01-15 2020-01-15 Letter Pcp, [facility] 1.2.840.114 [id number] Univers 00:00:00 00:00:00 (Out) Patient Health 350.1.13.10 it y of Does Not [place]7.2.686 [place] Have A Professio [phone] [address] Office Building One 2020-01-15 2020-01-15 Telephone CE Stapleton [id number] Univers 00:00:00 00:00:00 Josselyn S MUSA 350.1.13.10 ity of HOSPITAL 4.2.7.2.686 Kit as [phone] [address] 2020-01-14 2020-01-14 Urgent Provider, [facility] [id number] 08:37:59 10:06:38 Care [facility] 350.1.13.10 Care [place] 4.2.7.2.686 Professio [phone] [place] [address] Office Building One 2020-01-14 2020-01-14 Urgent Provider, [facility] 1.2.840.114 [id number] [facility] 08:37:59 10:06:38 Care Anene, [facility] 350.1.13.10 ity of [place] 4.2.7.2.686 Kit as Professio [phone] [address] Office Building One 2020-01-14 2020-01-14 Outpatient R [facility] [id number] Univers 08:20:00 08:20:00 ity of [facility] 2020-01-14 2020-01-14 Letter Doctor CE Lorenzo.2.840.114 [id number] 00:00:00 00:00:00 (Out) Unassigned, MUSA 350.1.13.10 [place] [facility] 4.2.7.2.686 [id number] 2020-01-14 2020-01-14 Letter Doctor ENCINAS 1.2.840.114 [id number] [facility] 00:00:00 00:00:00 (Out) Unassigned, MUSA 350.1.13.10 ity of [place] [facility] 4.2.7.2.686 Kit as [phone] [place] [address] Branch Results This patient has no known results.
[2023-02-02] MEDS ORDERED: CYCLOBENZAPRINE 10 MG TAB ONE (09:09)
[2023-02-02] MEDS ORDERED: KETOROLAC 30 MG/ML INJ ONE (09:09)
--- NOTE | 2023-02-02 09:40 | EDPHYS ---
Physician Documentation [facility] Name: Aleisha Mcqueen Age: 22 yrs Sex: Female : 2000 Arrival Date: 02/02/2023 Time: 08:20 Bed 19 Private MD: ED Physician Camilo Hampton HPI: 02/02 08:38 This 22 yrs old Female presents to ER via Ambulatory with complaints of sb4 Shoulder Pain. 08:38 The patient or guardian complains of pain, that is acute. pain in the left upper sb4 posterior trapezius region. 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 the pain has been going on for 4 days now and has not gotten any better. she has not taken any OTC meds, has just tried massaging the area. states she feels the pain all the way down her left arm. 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 - Social history:: Smoking status: Patient denies any tobacco usage or history of. ROS: 08:38 Constitutional: Negative for fever, chills, and weight loss. sb4 08:38 MS/extremity: Positive for pain, of the left trapezius and left scapular area. 08:38 All other systems are negative. Exam: 08:38 Constitutional: This is a well developed, well nourished patient who is awake, alert, sb4 and in no acute distress. 08:38 Musculoskeletal/extremity: ROM: full passive range of motion, limited active range of motion due to pain, Circulation is intact in all extremities. Sensation intact. Joints: the left shoulder displays painful range of motion. Vital Signs: 08:31 BP 126 / 77; Pulse 60; Resp 16; Temp 98.3(O); Pulse Ox 100% on R/A; Weight 103.42 kg; hb Height 5 ft. 4 in. ; Pain 8/10; 09:39 Pain 2/10; jl7 09:39 Pain 2/10; jl7 09:55 BP 110 / 65; Pulse 58; Resp 16; Pulse Ox 99% on R/A; db 08:31 Body Mass Index 39.14 (103.42 kg, 162.56 cm) hb 08:31 Pain Scale: Adult hb 09:39 Pain Scale: Adult jl7 09:39 Pain Scale: Adult jl7 MDM: 08:25 Patient medically screened. sb4 08:38 Differential diagnosis: tendonitis, muscle strain, neuropathy. sb4 09:38 Data reviewed: vital signs, nurses notes, and as a result, I will discharge patient. sb4 Test considered but Not performed: X-ray: not indicated, not a bony injury . Counseling: I had a detailed discussion with the patient and/or guardian regarding the historical points, exam findings, and any diagnostic results supporting the discharge/admit diagnosis, to return to the emergency department if symptoms worsen or persist or if there are any questions or concerns that arise at home. Medication response: Toradol markedly relieved the patient's pain. Special discussion: see ortho if symptoms do not resolve. Administered Medications: 09:02 Drug: Cyclobenzaprine PO 10 mg Route: PO; db 09:39 Follow up: Pain 2/10 Adult; Response: No adverse reaction; Pain is decreased jl7 09:02 Drug: Ketorolac IM 30 mg Route: IM; Site: left deltoid; db 09:39 Follow up: Pain 2/10 Adult; Response: No adverse reaction; Pain is decreased jl7 Disposition: 10:15 Co-signature as Attending Physician, Camilo Hampton MD I reviewed the patient's care rt provided by the Advanced Practice Provider and agree with the diagnosis and treatment plan. Disposition Summary: 02/02/23 09:39 Discharge Ordered Location: Home sb4 Problem: an ongoing problem sb4 Symptoms: have improved sb4 Condition: Stable sb4 Diagnosis - Strain of unspecified muscle, fascia and tendon at shoulder and upper arm level, sb4 left arm Followup: sb4 - With: - When: As needed - Reason: Recheck today's complaints, Continuance of care, Re-evaluation by your physician Discharge Instructions: - Discharge Summary Sheet sb4 - Shoulder Pain, [id number] sb4 - Muscle Cramps and Spasms, [id number] sb4 Forms: - Work release form db - Medication Reconciliation Form sb4 - Thank You Letter sb4 - Antibiotic Education sb4 - Prescription Opioid Use sb4 - Patient Portal Instructions sb4 - Leadership Thank You Letter sb4 Prescriptions: - ketorolac 10 mg Oral tablet - take 1 tablet by ORAL route every 4 to 6 hours for 3 days as needed for pain; sb4 do not exceed 4 doses per 24 hrs; 12 tablet; Refills: 0, Product Selection Permitted - Cyclobenzaprine 10 mg Oral Tablet - take 1 tablet by ORAL route every 8 hours As needed; 30 tablet; Refills: 0, sb4 Product Selection Permitted Signatures: Brynn Lagunas, RN RN Elisa Sylvester RN RN Bernice Beck PA-C PA-C sb4 Camilo Hampton MD MD rt Pérez Celaya RN jl7
--- NOTE | 2023-02-02 09:40 | ER ---
Nurse's Notes [facility] Name: Aleisha Mcqueen Age: 22 yrs Sex: Female : 2000 Arrival Date: 02/02/2023 Time: 08:20 Bed 19 Private MD: Diagnosis: Strain of unspecified muscle, fascia and tendon at shoulder and upper arm level, left arm Presentation: 02/02 08:31 Chief complaint: Left upper back pain that radiates to left shoulder and arm x 2 days. hb Denies injury. 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 Coronavirus screen: At this time, the client does not indicate any symptoms associated with coronavirus-19. Ebola Screen: No symptoms or risks identified at this time. Initial Sepsis Screen: Does the patient meet any 2 criteria? No. Patient's initial sepsis screen is negative. Does the patient have a suspected source of infection? No. Patient's initial sepsis screen is negative. Risk Assessment: Do you want to hurt yourself or someone else? Patient reports no desire to harm self or others. Onset of symptoms was January 31, 2023. 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 - Social history:: Smoking status: Patient denies any tobacco usage or history of. Screenin:41 [facility] ED Fall Risk Assessment (Adult) History of falling in the last 3 months, jl7 including since admission No falls in past 3 months (0 pts) Score/Fall Risk Level 0 - 2 = Low Risk Oriented to surroundings, Maintained a safe environment. Abuse screen: Denies threats or abuse. Denies injuries from another. Nutritional screening: No deficits noted. Tuberculosis screening: No symptoms or risk factors identified. Assessment: 08:30 General: Appears in no apparent distress. uncomfortable, Behavior is calm, cooperative, jl7 appropriate for age. Pain: Complains of pain in left shoulder Pain currently is 8 out of 10 on a pain scale. Neuro: Level of Consciousness is awake, alert, obeys commands, Oriented to person, place, time, situation. Cardiovascular: Patient's skin is warm and dry. Respiratory: Airway is patent Respiratory effort is even, unlabored. Derm: Skin is pink, warm \T\ dry. Musculoskeletal: Range of motion: intact in all extremities. 09:41 Reassessment: Patient appears in no apparent distress at this time. Pain decreased, jl7 rated 2/10 at this time Patient states symptoms have improved. 09:59 Reassessment: Patient appears in no apparent distress at this time. Patient and/or db family updated on plan of care and expected duration. Pain level reassessed. Patient is alert, oriented x 3, equal unlabored respirations, skin warm/dry/pink. Patient states feeling better. Vital Signs: 08:31 BP 126 / 77; Pulse 60; Resp 16; Temp 98.3(O); Pulse Ox 100% on R/A; Weight 103.42 kg; hb Height 5 ft. 4 in. ; Pain 8/10; 09:39 Pain 2/10; jl7 09:39 Pain 2/10; jl7 09:55 BP 110 / 65; Pulse 58; Resp 16; Pulse Ox 99% on R/A; db 08:31 Body Mass Index 39.14 (103.42 kg, 162.56 cm) hb 08:31 Pain Scale: Adult hb 09:39 Pain Scale: Adult jl7 09:39 Pain Scale: Adult jl7 ED Course: 08:21 Patient arrived in ED. mr 08:25 [facility] Gore [facility] sb4 08:25 Camilo Hampton MD is Attending Physician. sb4 08:30 Patient has correct armband on for positive identification. Provided Education on: use jl7 of call perez. 08:30 Pulse ox on. NIBP on. jl7 08:30 Patient did not have IV access during this emergency room visit. jl7 08:32 Triage completed. hb 08:33 Arm band placed on. hb 09:05 Pérez Celaya, ALCON is Primary Nurse. jl7 09:39 Ascencion Car MD is Referral Physician. sb4 09:59 No provider procedures requiring assistance completed. Patient did not have IV access db during this emergency room visit. Administered Medications: 09:02 Drug: Cyclobenzaprine PO 10 mg Route: PO; db 09:39 Follow up: Pain 2/10 Adult; Response: No adverse reaction; Pain is decreased jl7 09:02 Drug: Ketorolac IM 30 mg Route: IM; Site: left deltoid; db 09:39 Follow up: Pain 2/10 Adult; Response: No adverse reaction; Pain is decreased jl7 Medication: 09:41 VIS not applicable for this client. jl7 Outcome: 09:39 Discharge ordered by MD. jarvis 09:59 Discharged to home ambulatory. db 09:59 Condition: stable 09:59 Discharge instructions given to patient, Instructed on discharge instructions, follow up and referral plans. Prescriptions given X 2. 10:00 Patient left the ED. db Signatures: Chary Wayne Heather, RN Pérez Milton RN RN jl7 Elisa Roman RN RN db Brown, Sophia, PA-C PA-C sb4
[2023-02-02 10:11] VITALS: TEMP 98.3
[2023-02-02 10:20] VITALS: BP 110/65; O2SAT 99
== END 2023-02-02 10:00 | disposition home or self-care (01) ==
LOC: ER 08:20
DX: S46.912A Strain of unspecified muscle, fascia and tendon at shoulder and upper arm level, left arm, initial encounter (principal)
CPT/HCPCS: 96372; 99284

== ENCOUNTER 2024-08-19 02:43 | Emergency (ER) | payer BC, OTHER ==
--- OUTSIDE RECORDS SUMMARY | 2024-08-19 02:50 | XMS REPORT | Continuity of Care Document ---
Author Name Unknown Address [address] [facility] [address] [place] [address] [facility] Address [address] [facility] [address] [place] [address] Care Team Providers Care Metal Or Wood Blocker Name Role Phone Pcp, Patient Does Not Have A Primary Care Physic salty VEE HYDE Attending Clinician VEE Villeda Attending Clinician Poonam aragon Doctor Unassigned, Bude Attending Clinician U Vee Roper MD Attending Clinician + [phone] DOLLY NORRIS Attending Clinician Unavailable Dloly Norris DNP Attending Clinician [phone] Lab, Ang - Db Attending Clinician Unavailable VIANNEY BLAKE Attending Clinician Unavailable VIANNEY BLAKE Attending Clinician Unavailable Vianney Andrews Attending Clinician [phone] Doctor Unassigned, Bude Attending Clinician U LASHANDA Roldan Attending Clinician Unavailable LASHANDA SIEGEL Attending Clinician Unavailable ANGELA CASAS Attending Clinician Unavailab ANGELA Mayes Attending Clinician Unavailab waqas Lab, Ang - Db Attending Clinician Unavailable JOE TRIMBLE Attending Clinician Roma jackson 1, [facility] Attending Clinician UnavailJoe Maldonado MD Attending Clinician + ROXANNE JUDGE Attending Clinician Unavailable DARRION TIDWELL Attending Clinician Unavailable Darrion Tidwell MD Cam Attending Clinician [phone] Ultrasound, Ang-Mfm Attending Clinician Unavaila price EBRAMARY JUNIOR Attending Clinician Unavailable Ebrahim ASSOCIATE CONSULTING ENGINEERMary Attending Clinician [phone] Unknown, Attending Attending Clinician Unavailab le UNKNOWN, ATTENDING Attending Clinician Unavailab le Robert PAC, K Katelin Attending Clinician [phone] ANEJIMI MORAN Attending Clinician Unavailable Lab, Adc Fam Pob I Attending Clinician Unavailab waqas Argueta ASSOCIATE CONSULTING ENGINEERJimi Delvalle Attending Clinician [phone] Pcp, Patient Does Not Have A Attending Clinician Pieter RONDON, Roxanne Sofia Attending Clinician Unavaila ble Provider, [facility] Attending Clinician Un available ADLASHANDA CARTAGENA Admitting Clinician Unavailable YAW, DARRION WILLSON Admitting Clinician Unavailable VIANNEY BLAKE Admitting Clinician Unavailable VEE HYDE Admitting Clinician Poonam Tidwell MD, Darrion Willson Admitting Clinician [phone] Payers Payer Name Policy Type Policy Number Effective Date Expirati on Date Source [facility] [id number] 2023 00:00:00 [place] [facility] [employer] [id number] 2023 00:00:00 Problems Condition Name Condition Details Condition Category Status Onset Date Resolution Date Last Treatment Date Treating Clinician Comments Source with inconclusi ve viability, single or unspecifie d fetus with inconclusi ve viability, single or unspecifie d fetus Disease Active 2023-06 00:00: 00 [facility] , location unknown , location unknown Disease Active 2023-06 00:00: 00 [facility] Anemia of mother in , antepartum Anemia of mother in , antepartum Disease Active 07 00:00: 00 [facility] Chlamydia infection affecting in first trimester Chlamydia infection affecting in first trimester Disease Active 2022-06 00:00: 00 [facility] No known active problems No known active problems Disease [facility] Routine follow-up Routine follow-up Disease Resolve d 4-0 8-29 00:00: 00 2024-05-13 00:00:00 2024-05-13 18:13:50 [facility] Morbid obesity with body mass index of 40.0-49.9 Morbid obesity with body mass index of 40.0-49.9 Disease Resolve d 4-0 7-23 00:00: 00 2024-05-13 00:00:00 2024-05-13 18:13:47 [facility] Liveborn , of [place] , born in hospital by delivery Liveborn infant, of [place] , born in hospital by delivery Disease Resolve d 2023-0 7-23 00:00: 00 2024-05-13 00:00:00 2024-05-13 18:13:49 [facility] 39 weeks gestation of 39 weeks gestation of Disease Resolve d 2023-0 7-22 00:00: 00 2024-05-13 00:00:00 2024-05-13 18:13:44 [facility] High-risk in third trimester High-risk in third trimester Disease Resolve d 2023-0 5-07 00:00: 00 2024-05-13 00:00:00 2024-05-13 18:13:54 [facility] Previous section complicati ng Previous section complicati ng Disease Resolve d 2023-0 1-23 00:00: 00 2024-05-13 00:00:00 2024-05-13 18:13:57 [facility] High-risk in first trimester High-risk in first trimester Disease Resolve d 2023-0 1-23 00:00: 00 2023-12-31 00:00:00 2023-12-31 19:20:06 [facility] Allergies, Adverse Reactions, Alerts Allergy Name Allergy Type Status Severity Reaction(s) Onset Date Inactive Date Treating Clinician Comments Source Amoxicil rajesh Propensi ty to adverse reaction s Active Hives 2015-06 0 00:00: 00 [facility] AMOXICIL RAJESH DRUG INGREDI Active Hives 2015-06 006 00:00: 00 [facility] Social History Social Habit Start Date Stop Date Quantity Comments Source ASSERTION 2023-04-14 00:00:00 [facility] Exposure to SARS-CoV-2 (event) Unable to assess [facility] History of Social function 2024-02-07 00:00:00 2024-02-07 00:00:00 [facility] Alcoholic beverage intake 2023-12-06 00:00:00 2023-12-06 00:00:00 Ex-drinker (finding) [facility] Alcohol intake 2023-09-25 00:00:00 2023-09-25 00:00:00 Ex-drinker (finding) [facility] Tobacco use and exposure 2020-01-14 00:00:00 2020-01-14 00:00:00 Smokeless tobacco non-user [facility] Alcohol Comment 2020-01-14 00:00:00 2020-01-14 00:00:00 social [facility] History SDOH Alcohol Frequency 2020-01-14 00:00:00 2020-01-14 00:00:00 99 [facility] History SDOH Alcohol Std Drinks 2020-01-14 00:00:00 2020-01-14 00:00:00 99 [facility] History SDOH Alcohol Binge 2020-01-14 00:00:00 2020-01-14 00:00:00 99 [facility] Sex assigned at 2000 00:00:00 2000 00:00:00 [facility] Smoking Status Start Date Stop Date Source Never smoked tobacco [facility] Medications Ordered Medication Name Filled Medication Name Start Date Stop Date Current Medication? Ordering Clinician Indication Dosage Frequency Signature (SIG) Comments Components Source levonorgest rel-ethinyl estradiol 0.1-20 mg-mcg per tablet 07-08 00:00: 00 Yes [id number] 1{tbl} Take 1 tablet by mouth in the morning. [facility] azithromyci n 500 mg tablet 2023-06 00:00: 00 Yes [id number] Take 2 tablets at once by mouth [facility] metroNIDAZO LE 500 mg tablet 2023-06 00:00: 00 Yes [id number] 500mg Take 1 tablet by mouth every 12 (twelve) hours. [facility] metroNIDAZO LE (FLAGYL) 500 mg tablet 02-09 00:00: 00 Yes [id number] 500mg Take 1 tablet by mouth every 12 (twelve) hours. [facility] sulfamethox azole-trime thoprim (BACTRIM DS) 800-160 mg per tablet 02-09 00:00: 00 Yes [id number] 1{tbl} Take 1 tablet by mouth in the morning and 1 tablet in the evening. [facility] vitamin w/FA tablet 01-02 00:00: 00 Yes [id number] 1{tbl} Take 1 tablet by mouth in the morning. [facility] docusate 100 mg capsule 01-02 00:00: 00 Yes [id number] 200mg Take 2 capsules by mouth once daily as needed for Constipati on. [facility] ferrous sulfate 325 mg (65 mg iron) tablet 01-02 00:00: 00 Yes [id number] 325mg Take 1 tablet by mouth in the morning. [facility] ibuprofen 800 mg tablet 01-02 00:00: 00 04-24 00:00 :00 No [id number] 800mg Take 1 tablet by mouth every 8 (eight) hours as needed (pain). Take with food or milk. [facility] oxyCODONE 5 mg immediate release tablet 01-02 00:00: 00 01-10 04:59 :00 No [id number] 5mg Take 1 tablet by mouth every 6 (six) hours as needed for Pain (scale 7-10) for up to 7 days. Indication s: acute pain [facility] simethicone (GAS RELIEF (SIMETHICON E)) chewable tablet 160 mg 12-31 19:00: 00 Yes 160mg 160 mg, Oral, TID, First dose on Sun01/01/24 at 1400, Until Discontinu ed, Routine [facility] ibuprofen (IBU) tablet 800 mg 12-31 17:30: 00 Yes 800mg 800 mg, Oral, Q8HA1, First dose on Sun01/01/24 at 1230, Until Discontinu ed, Routine [facility] lactated ringers IV infusion 1,000 mL 12-31 14:15: 00 12-31 18:24 :00 No 1000mL at 125 mL/hr, 1,000 mL, IV Infusion, ONCE, 1 dose, On Sun01/01/24 at 0915, Routine [facility] docusate (COLACE) capsule 200 mg 12-31 14:00: 00 Yes 200mg 200 mg, Oral, DAILY, First dose on Sun01/01/24 at 0900, Until Discontinu ed, Routine [facility] sodium chloride 0.9 % irrigation solution 12-31 13:46: 00 Yes PRN, Starting on Sun01/01/24 at 0846, Until Discontinu ed, Intra-op [facility] acetaminoph en (TYLENOL) tablet 1,000 mg 12-31 13:30: 00 Yes 1000mg 1,000 mg, Oral, Q8H, First dose on Sun01/01/24 at 0830, Until Discontinu ed, Routine [facility] rho(D) immune globulin (RHOPHYLAC) injection 300 mcg 12-31 13:23: 47 Yes 300ug [facility] oxyCODONE immediate release tablet 5 mg 12-31 13:23: 19 Yes 5mg [facility] diphenhydrA MINE (BENADRYL) injection 25 mg 12-31 13:22: 40 Yes 25mg 25 mg, Slow IV Push, Q6HPRN, Starting on Sun01/01/24 at 0822, Until Discontinu ed, Routine, Itching [facility] diphenhydrA MINE (BENADRYL) tablet 25 mg 12-31 13:22: 40 Yes 25mg [facility] ondansetron (ZOFRAN (PF)) injection 4 mg 12-31 13:22: 40 Yes 4mg [facility] bisacodyL (DULCOLAX) suppository 10 mg 12-31 13:22: 40 Yes 10mg [facility] magnesium hydroxide (MILK OF MAGNESIA) 400 mg/5 mL suspension 30 mL 12-31 13:22: 40 Yes 30mL [facility] lactated ringers IV infusion 1,000 mL 12-31 13:22: 40 Yes 1000mL [facility] lidocaine 1% (XYLOCAINE) 10 mg/mL (1 %) injection 50 mL 12-31 10:14: 21 Yes 50mL [facility] lidocaine 1% (PF) (XYLOCAINE) injection 0.3 mL 12-31 10:14: 21 Yes .3mL [facility] sodium citrate-cit pk acid (BICITRA) 500-334 mg/5 mL solution 30 mL 12-31 10:14: 21 12-31 12:17 :00 No 30mL 30 mL, Oral, PRE-PROCED URE ONCE, 1 dose, Starting on Sun01/01/24 at 0514, Until Sun01/01/24 at 0717, Routine, Surgery/Pr ocedure [facility] acetaminoph en-caff-but albital (ESGIC) per capsule 12-19 00:00: 00 Yes [id number] 1{capsu le} Take 1 capsule by mouth every 4 (four) hours as needed for Pain. [facility] Nitrofurant oin&Nit. Macrocryst (MACROBID) 100 mg capsule 12-09 00:00: 00 Yes [id number] 100mg Take 1 capsule by mouth in the morning and 1 capsule in the evening. [facility] vit no.124/iron /folic ( VITAMIN ORAL) 11 22:17: 09 01-02 00:00 :00 No Take by mouth. [facility] ondansetron (ZOFRAN) 4 mg tablet 2024-0 4-16 00:00: 00 01-02 00:00 :00 No [id number] 4mg Take 1 tablet by mouth every 8 (eight) hours as needed for Nausea and Vomiting (N/V). [facility] Nitrofurant oin&Nit. Macrocryst 100 mg capsule 4 00:00: 00 09-25 04:59 :00 No [id number] 100mg Take 1 capsule by mouth in the morning and 1 capsule in the evening. Do all this for 7 days. [facility] vit no.124/iron /folic ( VITAMIN ORAL) 09-16 19:40: 02 Yes Take by mouth. [facility] phentermine 37.5 mg capsule 07-03 10:38: 23 07-03 00:00 :00 No 37.5mg Take 1 capsule by mouth every morning. [facility] vit no.124/iron /folic ( VITAMIN ORAL) 07-03 10:14: 47 Yes Take by mouth. [facility] azithromyci n 500 mg tablet 2022-06 00:00: 00 Yes [id number] Take 2 tables now as one dose [facility] azithromyci n 1 gram powder 2022-06 00:00: 00 05-10 05:59 :00 No [id number] 1g Take 1 Packet by mouth once now for 1 dose. [facility] phentermine 37.5 mg capsule 2022-06 10:41: 46 Yes 37.5mg Take 1 capsule by mouth every morning. [facility] phentermine 37.5 mg capsule 11-20 09:04: 20 Yes 37.5mg Take 1 capsule by mouth every morning. [facility] SUMAtriptan 50 mg tablet 11-20 00:00: 00 11-21 04:59 :00 No [id number] 50mg Take 1 tablet by mouth once now for 1 dose. Max 200mgrs in 24hr, may retake 2 hours later. [facility] No known medications 03-09 18:27: 37 No [facility] No known medications 01-13 10:22: 17 No [facility] butalbital- acetaminoph en-caff 50-325-40 mg tablet 06-28 00:00: 00 Yes [id number] 1{tbl} Take 1 tablet by mouth every 6 (six) hours as needed for Headache (Headache) . [facility] phenazopyri dine (PYRIDIUM) 200 mg tablet 2015-06 00:00: 00 Yes 200mg Take 1 tablet by mouth 3 (three) times daily. [facility] azithromyci n (ZITHROMAX) 250 mg tablet 2015-06 00:00: 00 01-13 00:00 :00 No 250mg Take 1 tablet by mouth daily. [facility] azithromyci n (ZITHROMAX Z-CHLOE) 250 mg tablet 2014-06 00:00: 00 Yes 250mg Take 1 Tab by mouth daily. [facility] No known medications No Un aisha [facility] No known medications No Un aisha [facility] No known medications No Un aisha [facility] Immunizations Ordered Immunization Name Filled Immunization Name Date Status Comments Source Meningococcal Polysaccharide (groups A, C, Y and W-135) conjugate vaccine (MCV4P) 2024-02-10 00:00:00 Completed [facility] HPV 2024-02-10 00:00:00 Completed [facility] TDAP 2024-02-10 00:00:00 Completed [facility] Meningococcal Polysaccharide (groups A, C, Y and W-135) conjugate vaccine (MCV4P) 2023-11-12 13:00:00 Completed [facility] HPV 2023-11-12 13:00:00 Completed [facility] TDAP 2023-11-12 13:00:00 Completed [facility] Meningococcal Polysaccharide (groups A, C, Y and W-135) conjugate vaccine (MCV4P) 2023-10-30 10:30:00 Completed [facility] HPV 2023-10-30 10:30:00 Completed [facility] TDAP 2023-10-30 10:30:00 Completed [facility] Meningococcal Polysaccharide (groups A, C, Y and W-135) conjugate vaccine (MCV4P) 2023-10-22 00:00:00 Completed [facility] HPV 2023-10-22 00:00:00 Completed [facility] TDAP 2023-10-22 00:00:00 Completed [facility] Meningococcal Polysaccharide (groups A, C, Y and W-135) conjugate vaccine (MCV4P) 2023-10-20 20:51:00 Completed [facility] HPV 2023-10-20 20:51:00 Completed [facility] TDAP 2023-10-20 20:51:00 Completed [facility] Meningococcal Polysaccharide (groups A, C, Y and W-135) conjugate vaccine (MCV4P) 2023-10-16 09:30:00 Completed [facility] HPV 2023-10-16 09:30:00 Completed [facility] TDAP 2023-10-16 09:30:00 Completed [facility] Meningococcal Polysaccharide (groups A, C, Y and W-135) conjugate vaccine (MCV4P) 2023-10-04 11:45:00 Completed [facility] HPV 2023-10-04 11:45:00 Completed [facility] Meningococcal Polysaccharide (groups A, C, Y and W-135) conjugate vaccine (MCV4P) 2023-10-04 08:45:00 Completed [facility] HPV 2023-10-04 08:45:00 Completed [facility] Meningococcal Polysaccharide (groups A, C, Y and W-135) conjugate vaccine (MCV4P) 2023-10-02 11:15:00 Completed [facility] HPV 2023-10-02 11:15:00 Completed [facility] Meningococcal Polysaccharide (groups A, C, Y and W-135) conjugate vaccine (MCV4P) 2023-10-02 10:30:00 Completed [facility] HPV 2023-10-02 10:30:00 Completed [facility] Meningococcal Polysaccharide (groups A, C, Y and W-135) conjugate vaccine (MCV4P) 2023-09-25 10:45:00 Completed [facility] HPV 2023-09-25 10:45:00 Completed [facility] Meningococcal Polysaccharide (groups A, C, Y and W-135) conjugate vaccine (MCV4P) 2023-09-21 00:00:00 Completed [facility] HPV 2023-09-21 00:00:00 Completed [facility] Meningococcal Polysaccharide (groups A, C, Y and W-135) conjugate vaccine (MCV4P) 2023-09-21 00:00:00 Completed [facility] HPV 2023-09-21 00:00:00 Completed [facility] Meningococcal Polysaccharide (groups A, C, Y and W-135) conjugate vaccine (MCV4P) 2023-09-17 17:06:00 Completed [facility] HPV 2023-09-17 17:06:00 Completed [facility] Meningococcal Polysaccharide (groups A, C, Y and W-135) conjugate vaccine (MCV4P) 2023-09-04 09:30:00 Completed [facility] HPV 2023-09-04 09:30:00 Completed [facility] Meningococcal Polysaccharide (groups A, C, Y and W-135) conjugate vaccine (MCV4P) 2023-08-28 14:30:00 Completed [facility] HPV 2023-08-28 14:30:00 Completed [facility] Meningococcal Polysaccharide (groups A, C, Y and W-135) conjugate vaccine (MCV4P) 2023-08-27 00:00:00 Completed [facility] HPV 2023-08-27 00:00:00 Completed [facility] Meningococcal Polysaccharide (groups A, C, Y and W-135) conjugate vaccine (MCV4P) 2023-08-27 00:00:00 Completed [facility] HPV 2023-08-27 00:00:00 Completed [facility] Meningococcal Polysaccharide (groups A, C, Y and W-135) conjugate vaccine (MCV4P) 2023-07-31 10:45:00 Completed [facility] HPV 2023-07-31 10:45:00 Completed [facility] Meningococcal Polysaccharide (groups A, C, Y and W-135) conjugate vaccine (MCV4P) 2023-07-19 00:00:00 Completed [facility] HPV 2023-07-19 00:00:00 Completed [facility] Meningococcal Polysaccharide (groups A, C, Y and W-135) conjugate vaccine (MCV4P) 2023-07-17 00:00:00 Completed [facility] HPV 2023-07-17 00:00:00 Completed [facility] Meningococcal Polysaccharide (groups A, C, Y and W-135) conjugate vaccine (MCV4P) 2023-07-12 00:00:00 Completed [facility] HPV 2023-07-12 00:00:00 Completed [facility] Meningococcal Polysaccharide (groups A, C, Y and W-135) conjugate vaccine (MCV4P) 2023-07-12 00:00:00 Completed [facility] HPV 2023-07-12 00:00:00 Completed [facility] Meningococcal Polysaccharide (groups A, C, Y and W-135) conjugate vaccine (MCV4P) 2023-07-07 11:20:00 Completed [facility] HPV 2023-07-07 11:20:00 Completed [facility] Meningococcal Polysaccharide (groups A, C, Y and W-135) conjugate vaccine (MCV4P) 2023-07-06 00:00:00 Completed [facility] HPV 2023-07-06 00:00:00 Completed [facility] Meningococcal Polysaccharide (groups A, C, Y and W-135) conjugate vaccine (MCV4P) 2023-07-04 08:45:00 Completed [facility] HPV 2023-07-04 08:45:00 Completed [facility] Meningococcal Polysaccharide (groups A, C, Y and W-135) conjugate vaccine (MCV4P) 2023-07-03 10:00:00 Completed [facility] HPV 2023-07-03 10:00:00 Completed [facility] Meningococcal Polysaccharide (groups A, C, Y and W-135) conjugate vaccine (MCV4P) 2023-07-03 00:00:00 Completed [facility] HPV 2023-07-03 00:00:00 Completed [facility] Meningococcal Polysaccharide (groups A, C, Y and W-135) conjugate vaccine (MCV4P) 2023-05-11 00:00:00 Completed [facility] HPV 2023-05-11 00:00:00 Completed [facility] Meningococcal Polysaccharide (groups A, C, Y and W-135) conjugate vaccine (MCV4P) 2023-05-09 00:00:00 Completed [facility] HPV 2023-05-09 00:00:00 Completed [facility] Meningococcal Polysaccharide (groups A, C, Y and W-135) conjugate vaccine (MCV4P) 2023-05-08 10:00:00 Completed [facility] HPV 2023-05-08 10:00:00 Completed [facility] Meningococcal Polysaccharide (groups A, C, Y and W-135) conjugate vaccine (MCV4P) 2023-05-08 00:00:00 Completed [facility] HPV 2023-05-08 00:00:00 Completed [facility] Meningococcal Polysaccharide (groups A, C, Y and W-135) conjugate vaccine (MCV4P) 2023-05-01 00:00:00 Completed [facility] HPV 2023-05-01 00:00:00 Completed [facility] Meningococcal Polysaccharide (groups A, C, Y and W-135) conjugate vaccine (MCV4P) 2015-04-29 00:00:00 Completed [facility] HPV 2015-04-29 00:00:00 Completed [facility] Meningococcal Polysaccharide (groups A, C, Y and W-135) conjugate vaccine (MCV4P) 2015-04-29 00:00:00 Completed [facility] [facility] HPV 2015-04-29 00:00:00 Completed [facility] Meningococcal Polysaccharide (groups A, C, Y and W-135) conjugate vaccine (MCV4P) 2015-04-29 00:00:00 Completed [facility] HPV 2015-04-29 00:00:00 Completed [facility] Meningococcal Polysaccharide (groups A, C, Y and W-135) conjugate vaccine (MCV4P) 2015-04-29 00:00:00 Completed [facility] HPV 2015-04-29 00:00:00 Completed [facility] Meningococcal Polysaccharide (groups A, C, Y and W-135) conjugate vaccine (MCV4P) 2015-04-29 00:00:00 Completed [facility] HPV 2015-04-29 00:00:00 Completed [facility] Meningococcal Polysaccharide (groups A, C, Y and W-135) conjugate vaccine (MCV4P) 2015-04-29 00:00:00 Completed [facility] HPV 2015-04-29 00:00:00 Completed [facility] Meningococcal Polysaccharide (groups A, C, Y and W-135) conjugate vaccine (MCV4P) 2015-04-29 00:00:00 Completed [facility] HPV 2015-04-29 00:00:00 Completed [facility] Meningococcal Polysaccharide (groups A, C, Y and W-135) conjugate vaccine (MCV4P) 2015-04-29 00:00:00 Completed [facility] HPV 2015-04-29 00:00:00 Completed [facility] Meningococcal Polysaccharide (groups A, C, Y and W-135) conjugate vaccine (MCV4P) 2015-04-29 00:00:00 Completed [facility] HPV 2015-04-29 00:00:00 Completed [facility] Meningococcal Polysaccharide (groups A, C, Y and W-135) conjugate vaccine (MCV4P) 2015-04-29 00:00:00 Completed [facility] HPV 2015-04-29 00:00:00 Completed [facility] Vital Signs Vital Name Observation Time Observation Value Comments S ource Systolic blood pressure 2024-06-23 19:05:00 106 mm[Hg] [facility] Diastolic blood pressure 2024-06-23 19:05:00 67 mm[Hg] [facility] Heart rate 2024-06-23 19:05:00 71 /min [facility] Body temperature 2024-06-23 19:05:00 36.56 Lauren [facility] Respiratory rate 2024-06-23 19:05:00 16 /min [facility] Body height 2024-06-23 19:05:00 162.6 cm [facility] Body weight 2024-06-23 19:05:00 95.165 kg [facility] BMI 2024-06-23 19:05:00 36.01 kg/m2 [facility] Systolic blood pressure 2024-05-13 22:22:00 97 mm[Hg] [place] [facility] Diastolic blood pressure 2024-05-13 22:22:00 60 mm[Hg] [facility] Heart rate 2024-05-13 22:22:00 73 /min [facility] Respiratory rate 2024-05-13 22:22:00 16 /min [facility] Body height 2024-05-13 22:22:00 162.6 cm [facility] Body weight 2024-05-13 22:22:00 94.847 kg [facility] BMI 2024-05-13 22:22:00 35.89 kg/m2 [facility] Systolic blood pressure 2024-05-05 22:43:00 121 mm[Hg] [facility] Diastolic blood pressure 2024-05-05 22:43:00 73 mm[Hg] [facility] Heart rate 2024-05-05 22:43:00 76 /min [facility] Body temperature 2024-05-05 22:43:00 36.67 Lauren [facility] Respiratory rate 2024-05-05 22:43:00 16 /min [facility] Body height 2024-05-05 22:43:00 162.6 cm [facility] Body weight 2024-05-05 22:43:00 94.983 kg [facility] BMI 2024-05-05 22:43:00 35.94 kg/m2 [facility] Systolic blood pressure 2024-04-29 01:21:00 127 mm[Hg] [facility] Diastolic blood pressure 2024-04-29 01:21:00 83 mm[Hg] [facility] Heart rate 2024-04-29 01:21:00 75 /min [facility] Body temperature 2024-04-29 01:21:00 36.94 Lauren [facility] Respiratory rate 2024-04-29 01:21:00 16 /min [facility] Oxygen saturation in Arterial blood by Pulse oximetry 2024-04-29 01:21:00 100 /min [facility] Body height 2024-04-28 22:04:00 162.6 cm [facility] Body weight 2024-04-28 22:04:00 [facility].348 [facility] 2024-04-28 22:04:00 35.70 kg[facility]m2 [facility] Systolic blood pressure 2024-04-24 15:07:00 106 mm[Hg] [facility] Diastolic blood pressure 2024-04-24 15:07:00 66 mm[Hg] [facility] Heart rate 2024-04-24 15:07:00 83 /min [facility] 2024-04-24 15:07:00 18 /min [facility] Body height 2024-04-24 15:07:00 162.6 cm [facility] Body weight 2024-04-24 15:07:00 94.711 kg Univ [facility] BMI 2024-04-24 15:07:00 35.84 kg/m2 [facility] Systolic blood pressure 2024-02-07 19:32:00 102 mm[Hg] [facility] Diastolic blood pressure 2024-02-07 19:32:00 65 mm[Hg] [facility] Heart rate 2024-02-07 19:32:00 57 /min [facility] Body temperature 2024-02-07 19:32:00 36.22 Lauren [facility] Body weight 2024-02-07 19:32:00 96.253 kg [facility] 2024-02-07 19:32:00 36.42 kg/m2 [facility] Systolic blood pressure 2024-01-08 19:37:00 123 mm[Hg] [facility] Diastolic blood pressure 2024-01-08 19:37:00 73 mm[Hg] [facility] Heart rate 2024-01-08 19:37:00 67 /min [facility] 2024-01-08 19:37:00 18 /min [facility] Body height 2024-01-08 19:37:00 162.6 cm Univ [facility] Body weight 2024-01-08 19:37:00 98.884 kg Univ [facility] BMI 2024-01-08 19:37:00 37.42 kg/m2 [facility] Oxygen saturation in Arterial blood by Pulse oximetry 2024-01-03 14:00:00 100 /min [facility] Systolic blood pressure 2024-01-03 13:47:00 112 mm[Hg] [facility] Diastolic blood pressure 2024-01-03 13:47:00 66 mm[Hg] [facility] Heart rate 2024-01-03 13:47:00 74 /min [facility] Body temperature 2024-01-03 13:47:00 36.94 Lauren [facility] Respiratory rate 2024-01-03 13:47:00 18 /min [facility] Body height 2024-01-01 10:25:00 162.6 cm [facility] weight 2024-01-01 10:25:00 108.41 kg Univ [facility] BMI 2024-01-01 10:25:00 41.02 kg/m2 [facility] Systolic blood pressure 2024-01-01 13:45:00 107 mm[Hg] [facility] Diastolic blood pressure 2024-01-01 13:45:00 86 mm[Hg] [facility] Heart rate 2024-01-01 13:45:00 57 /min [facility] Oxygen saturation in Arterial blood by Pulse oximetry 2024-01-01 13:45:00 100 /min [facility] Body temperature 2024-01-01 13:30:00 36.67 Lauren [facility] Respiratory rate 2024-01-01 10:25:00 18 /min [facility] Body height 2024-01-01 10:25:00 162.6 cm [facility] Body weight 2024-01-01 10:25:00 108.41 kg [facility] 2024-01-01 10:25:00 41.02 kg/m2 [facility] Systolic blood pressure 2023-12-30 00:30:00 117 mm[Hg] [facility] Diastolic blood pressure 2023-12-30 00:30:00 79 mm[Hg] [facility] Heart rate 2023-12-30 00:30:00 79 /min [facility] Oxygen saturation in Arterial blood by Pulse oximetry 2023-12-30 00:30:00 99 /min [facility] Body temperature 2023-12-29 23:55:00 36.61 Lauren [facility] Respiratory rate 2023-12-29 23:41:00 19 /min [facility] Body height 2023-12-29 23:41:00 162.6 cm [facility] Body weight 2023-12-29 23:41:00 108.999 kg Univ [facility] BMI 2023-12-29 23:41:00 41.25 kg/m2 [facility] Systolic blood pressure 2023-12-27 13:43:00 112 mm[Hg] [facility] Diastolic blood pressure 2023-12-27 13:43:00 73 mm[Hg] [facility] Heart rate 2023-12-27 13:43:00 67 /min [facility] Respiratory rate 2023-12-27 13:43:00 16 /min [facility] Body height 2023-12-27 13:43:00 162.6 cm [facility] Body weight 2023-12-27 13:43:00 108.636 kg Univ [facility] BMI 2023-12-27 13:43:00 41.11 kg/m2 [facility] Oxygen saturation in Arterial blood by Pulse oximetry 2023-12-27 13:43:00 99 /min [facility] Systolic blood pressure 2023-12-20 21:22:00 106 mm[Hg] [facility] Diastolic blood pressure 2023-12-20 21:22:00 72 mm[Hg] [facility] Heart rate 2023-12-20 21:22:00 79 /min [facility] Body temperature 2023-12-20 21:22:00 36.22 Lauren [facility] Body height 2023-12-20 21:22:00 160 cm [facility] Body weight 2023-12-20 21:22:00 110.133 kg [facility] BMI 2023-12-20 21:22:00 43.01 kg/m2 [facility] Systolic blood pressure 2023-12-14 23:25:00 124 mm[Hg] [facility] Diastolic blood pressure 2023-12-14 23:25:00 74 mm[Hg] [facility] Heart rate 2023-12-14 23:25:00 70 /min [facility] Body temperature 2023-12-14 23:25:00 36.72 Lauren [facility] Respiratory rate 2023-12-14 23:25:00 16 /min [facility] Body height 2023-12-14 23:25:00 160 cm Univ [facility] Body weight 2023-12-14 23:25:00 107.956 kg [facility] BMI 2023-12-14 23:25:00 42.16 kg/m2 [facility] Oxygen saturation in Arterial blood by Pulse oximetry 2023-12-14 23:25:00 100 /min [facility] Heart rate 2023-12-13 14:45:00 77 /min [facility] Oxygen saturation in Arterial blood by Pulse oximetry 2023-12-13 14:45:00 100 /min [facility] Systolic blood pressure 2023-12-13 14:34:00 118 mm[Hg] [facility] Diastolic blood pressure 2023-12-13 14:34:00 69 mm[Hg] [facility] Respiratory rate 2023-12-13 14:34:00 16 /min [facility] Body height 2023-12-13 14:34:00 162.6 cm [facility] Body weight 2023-12-13 14:34:00 107.956 kg Univ [facility] BMI 2023-12-13 14:34:00 40.85 kg/m2 [facility] Body temperature 2023-12-13 14:13:00 36.72 Lauren [facility] Systolic blood pressure 2023-12-11 15:31:00 98 mm[Hg] [facility] Diastolic blood pressure 2023-12-11 15:31:00 63 mm[Hg] [facility] Heart rate 2023-12-11 15:31:00 70 /min [facility] Respiratory rate 2023-12-11 15:31:00 18 /min [facility] Body height 2023-12-11 15:31:00 162.6 cm [facility] Body weight 2023-12-11 15:31:00 107.956 kg [facility] BMI 2023-12-11 15:31:00 40.85 kg/m2 [facility] Systolic blood pressure 2023-12-06 13:24:00 116 mm[Hg] [place] [facility] Diastolic blood pressure 2023-12-06 13:24:00 78 mm[Hg] [facility] Heart rate 2023-12-06 13:24:00 57 /min [facility] Respiratory rate 2023-12-06 13:24:00 16 /min [facility] Body height 2023-12-06 13:24:00 162.6 cm [facility] Body weight 2023-12-06 13:24:00 108.41 kg [facility] BMI 2023-12-06 13:24:00 41.02 kg/m2 [facility] Systolic blood pressure 2023-11-12 18:06:00 116 mm[Hg] [facility] Diastolic blood pressure 2023-11-12 18:06:00 76 mm[Hg] [facility] Heart rate 2023-11-12 18:06:00 94 /min [facility] Body temperature 2023-11-12 18:06:00 36.78 Lauren [facility] Respiratory rate 2023-11-12 18:06:00 16 /min [facility] Body height 2023-11-12 18:06:00 162.6 cm [facility] Body weight 2023-11-12 18:06:00 104.599 kg [facility] BMI 2023-11-12 18:06:00 39.58 kg/m2 [facility] Systolic blood pressure 2023-10-30 15:25:00 101 mm[Hg] [facility] Diastolic blood pressure 2023-10-30 15:25:00 68 mm[Hg] [facility] Heart rate 2023-10-30 15:25:00 65 /min [facility] Body temperature 2023-10-30 15:25:00 36.72 Lauren [facility] Respiratory rate 2023-10-30 15:25:00 15 /min [facility] Body height 2023-10-30 15:25:00 162.6 cm [facility] Body weight 2023-10-30 15:25:00 105.235 kg [facility] BMI 2023-10-30 15:25:00 39.82 kg/m2 [facility] Systolic blood pressure 2023-10-21 03:00:00 127 mm[Hg] [facility] Diastolic blood pressure 2023-10-21 03:00:00 63 mm[Hg] [facility] Heart rate 2023-10-21 03:00:00 59 /min [facility] Oxygen saturation in Arterial blood by Pulse oximetry 2023-10-21 03:00:00 100 /min [facility] Body temperature 2023-10-21 02:07:00 36.94 Lauren [facility] Respiratory rate 2023-10-21 02:07:00 18 /min [facility] Body height 2023-10-21 02:07:00 162.6 cm [facility] Body weight 2023-10-21 02:07:00 106.051 kg [facility] BMI 2023-10-21 02:07:00 40.11 kg/m2 [facility] Systolic blood pressure 2023-10-16 15:06:00 103 mm[Hg] [facility] Diastolic blood pressure 2023-10-16 15:06:00 69 mm[Hg] [facility] Heart rate 2023-10-16 15:06:00 68 /min [facility] Body temperature 2023-10-16 15:06:00 36.72 Lauren [facility] Respiratory rate 2023-10-16 15:06:00 16 /min [facility] Body height 2023-10-16 15:06:00 162.6 cm [facility] Body weight 2023-10-16 15:06:00 103.874 kg [facility] BMI 2023-10-16 15:06:00 39.31 kg/m2 [facility] Systolic blood pressure 2023-09-25 15:24:00 112 mm[Hg] [facility] Diastolic blood pressure 2023-09-25 15:24:00 74 mm[Hg] [facility] Heart rate 2023-09-25 15:24:00 69 /min [facility] Body temperature 2023-09-25 15:24:00 36.72 Lauren [facility] Respiratory rate 2023-09-25 15:24:00 16 /min [facility] Body height 2023-09-25 15:24:00 162.6 cm [facility] Body weight 2023-09-25 15:24:00 101.923 kg [facility] BMI 2023-09-25 15:24:00 38.57 kg/m2 [facility] Oxygen saturation in Arterial blood by Pulse oximetry 2023-09-25 15:24:00 98 /min [facility] Heart rate 2023-09-17 23:30:00 67 /min [facility] Oxygen saturation in Arterial blood by Pulse oximetry 2023-09-17 23:30:00 100 /min [facility] Systolic blood pressure 2023-09-17 22:41:00 114 mm[Hg] [facility] Diastolic blood pressure 2023-09-17 22:41:00 67 mm[Hg] [facility] Body temperature 2023-09-17 22:41:00 36.78 Lauren [facility] Respiratory rate 2023-09-17 22:41:00 18 /min [facility] Body height 2023-09-17 22:02:00 162.6 cm [facility] Body weight 2023-09-17 22:02:00 102.014 kg [facility] BMI 2023-09-17 22:02:00 38.60 kg/m2 [facility] Systolic blood pressure 2023-08-28 19:43:00 98 mm[Hg] [place] [facility] Diastolic blood pressure 2023-08-28 19:43:00 66 mm[Hg] [facility] Heart rate 2023-08-28 19:43:00 60 /min [facility] Body temperature 2023-08-28 19:43:00 36.61 Lauren [facility] Respiratory rate 2023-08-28 19:43:00 16 /min [facility] Body height 2023-08-28 19:43:00 162.6 cm [facility] Body weight 2023-08-28 19:43:00 101.061 kg [facility] BMI 2023-08-28 19:43:00 38.24 kg/m2 [facility] Systolic blood pressure 2023-07-31 16:43:00 115 mm[Hg] [facility] Diastolic blood pressure 2023-07-31 16:43:00 71 mm[Hg] [facility] Heart rate 2023-07-31 16:43:00 99 /min [facility] Body temperature 2023-07-31 16:43:00 36.44 Lauren [facility] Respiratory rate 2023-07-31 16:43:00 16 /min [facility] Body height 2023-07-31 16:43:00 162.6 cm [facility] Body weight 2023-07-31 16:43:00 99.746 kg [facility] BMI 2023-07-31 16:43:00 37.75 kg/m2 [facility] Systolic blood pressure 2023-07-07 17:26:00 106 mm[Hg] [facility] Diastolic blood pressure 2023-07-07 17:26:00 72 mm[Hg] [facility] Heart rate 2023-07-07 17:26:00 67 /min [facility] Body temperature 2023-07-07 17:26:00 36.78 Lauren [facility] Respiratory rate 2023-07-07 17:26:00 12 /min [facility] Body height 2023-07-07 17:26:00 162.6 cm [facility] Body weight 2023-07-07 17:26:00 99.338 kg [facility] BMI 2023-07-07 17:26:00 37.59 kg/m2 [facility] Oxygen saturation in Arterial blood by Pulse oximetry 2023-07-07 17:26:00 100 /min [facility] Systolic blood pressure 2023-07-03 16:14:00 114 mm[Hg] [facility] Diastolic blood pressure 2023-07-03 16:14:00 72 mm[Hg] [facility] Heart rate 2023-07-03 16:14:00 81 /min [facility] Respiratory rate 2023-07-03 16:14:00 18 /min [facility] Body height 2023-07-03 16:14:00 162.6 cm [facility] Body weight 2023-07-03 16:14:00 99.338 kg [facility] BMI 2023-07-03 16:14:00 37.59 kg/m2 [facility] Systolic blood pressure 2023-05-08 16:40:00 111 mm[Hg] [facility] Diastolic blood pressure 2023-05-08 16:40:00 75 mm[Hg] [facility] Heart rate 2023-05-08 16:40:00 63 /min [facility] Body temperature 2023-05-08 16:40:00 36.72 Lauren [facility] Respiratory rate 2023-05-08 16:40:00 16 /min [facility] Body height 2023-05-08 16:40:00 165.1 cm [facility] Body weight 2023-05-08 16:40:00 100.154 kg [facility] BMI 2023-05-08 16:40:00 36.74 kg/m2 [facility] Oxygen saturation in Arterial blood by Pulse oximetry 2023-05-08 16:40:00 98 /min [facility] Systolic blood pressure 2022-11-20 14:03:00 130 mm[Hg] [facility] Diastolic blood pressure 2022-11-20 14:03:00 78 mm[Hg] [facility] Heart rate 2022-11-20 14:03:00 74 /min [facility] Body height 2022-11-20 14:03:00 162.6 cm [facility] Body weight 2022-11-20 14:03:00 107.185 kg [facility] BMI 2022-11-20 14:03:00 40.56 kg/m2 [facility] Heart rate 2021-03-10 00:12:00 70 /min [facility] Systolic blood pressure 2021-03-10 00:12:00 125 mm[Hg] [facility] Diastolic blood pressure 2021-03-10 00:12:00 70 mm[Hg] [facility] Body temperature 2021-03-09 23:24:00 37.17 Lauren [facility] Respiratory rate 2021-03-09 23:24:00 18 /min [facility] Body weight 2021-03-09 23:24:00 102.059 kg [facility] BMI 2021-03-09 23:24:00 38.62 kg/m2 [facility] Oxygen saturation in Arterial blood by Pulse oximetry 2021-03-09 23:24:00 99 /min [facility] Systolic blood pressure 2020-01-14 14:31:00 119 mm[Hg] [facility] Diastolic blood pressure 2020-01-14 14:31:00 77 mm[Hg] [facility] Heart rate 2020-01-14 14:31:00 67 /min [facility] Body temperature 2020-01-14 14:31:00 37.06 Lauren [facility] Respiratory rate 2020-01-14 14:31:00 20 /min [facility] Body height 2020-01-14 14:31:00 162.6 cm [facility] Body weight 2020-01-14 14:31:00 102.059 kg [facility] BMI 2020-01-14 14:31:00 38.62 kg/m2 [facility] Oxygen saturation in Arterial blood by Pulse oximetry 2020-01-14 14:31:00 98 /min [facility] Systolic blood pressure 2020-01-14 14:31:00 119 mm[Hg] [facility] Diastolic blood pressure 2020-01-14 14:31:00 77 mm[Hg] [facility] Heart rate 2020-01-14 14:31:00 67 /min [facility] Body temperature 2020-01-14 14:31:00 37.06 Lauren [facility] Respiratory rate 2020-01-14 14:31:00 20 /min [facility] Body height 2020-01-14 14:31:00 162.6 cm [facility] Body weight 2020-01-14 14:31:00 102.059 kg [facility] BMI 2020-01-14 14:31:00 38.62 kg/m2 [facility] Oxygen saturation in Arterial blood by Pulse oximetry 2020-01-14 14:31:00 98 /min [facility] Procedures Procedure Date / Time Performed Performing Clinician Source GC & CHLAMYDIA AMPLIFIED ASSAY 2024-06-23 19:19:00 Dolly Norris [facility] POCT TEST 2024-06-23 19:18:00 Dolly Norris [facility] [facility] ULTRASOUND 2024-05-22 19:41:12 Doctor Unassigned, [place] [facility] ULTRASOUND 2024-05-22 19:41:11 Doctor Unassigned, [place] [facility] [facility] US OB TRANSVAGINAL 2024-05-14 00:22:26 Sterling Hyde [facility] US FIRST TRIMESTER LESS THAN 14 WEEKS WITH TRANSVAGINAL 2024-04-28 23:45:54 [facility] COMP. METABOLIC PANEL ([id number]) 2024-04-28 22:46:00 Vianney Blake [facility] TOTAL BETA HCG ASSAY 2024-04-28 22:46:00 Heriberto Blake [facility] CBC WITH DIFF 2024-04-28 22:46:00 Vianney Blake [facility] URINALYSIS 2024-04-28 22:46:00 Vianney Blake [facility] POCT TEST 2024-04-28 22:46:00 Batool Casas ra [facility] GC & CHLAMYDIA AMPLIFIED ASSAY 2024-04-24 15:20:[address] [facility] GALV ONLY - VAGINAL PATHOGENS BY NUCLEIC ACID TESTING 2024-04-24 15:20:[address] [facility] POCT TEST 2024-04-24 00:00:00 Mary Ellen [facility] POCT URINALYSIS W/O SPECIFIC GRAVITY 2024-02-07 00:00:[address] [facility] CBC WITH DIFF 2024-01-02 08:50:00 Chiquis Hyde [facility] CBC WITH DIFF 2024-01-02 08:50:00 Chiquis Hyde [facility] SECTION 2024-01-01 12:11:00 Ericka Hyde [facility] SECTION 2024-01-01 12:11:00 Ericka Hyde [facility] CBC WITH DIFF 2024-01-01 10:37:00 Chiquis Hyde [facility] HEPATITIS B SURFACE ANTIGEN 2024-01-01 10:37:[address] [facility] HB ABO GROUPING 2024-01-01 10:37:00 Luanne Hyde [facility] RHO (D) IMMUNE GLOBULIN 2024-01-01 10:37:00 Turner-Abida osborn [facility] ADC OR FLORY ONLY - RPR 2024-01-01 10:37:00 Inez[address], [facility] HIV 1/2 AG-AB WITH REFLEX 2024-01-01 10:37:[address] [facility] CBC WITH DIFF 2024-01-01 10:37:00 TompkinsSree [facility] HEPATITIS B SURFACE ANTIGEN 2024-01-01 10:37:[address] [facility] HB ABO GROUPING 2024-01-01 10:37:00 [facility] RHO (D[facility] IMMUNE GLOBULIN 2024-01-01 10:37:00 TompkinsRenae osborn [facility] ADC OR FLORY ONLY - RPR 2024-01-01 10:37:00 Tompkins-Balbuena, [facility] HIV 1/2 AG-AB WITH REFLEX 2024-01-01 10:37:00 Tompkins-Balbuena, [facility] ADC ONLY - FERN TEST 2023-12-30 00:56:00 AdLashanda cartagena [facility] POCT URINALYSIS W/O SPECIFIC GRAVITY 2023-12-27 00:00:[address] Tom[address] [facility] POCT URINALYSIS W/O SPECIFIC GRAVITY 2023-12-20 00:00:00 In[address], [facility] POCT URINALYSIS W/O SPECIFIC GRAVITY 2023-12-11 [facility]:00[facility] 2023-12-06 21:44:43 Doctor Unass igned, Bude [facility] POCT URINALYSIS W/O SPECIFIC GRAVITY 2023-12-06 00:00:[address] [facility] SECOND AND THIRD TRIMESTER ULTRASOUND 2023-11-27 16:33:00 Mary Ellen [facility] POCT URINALYSIS W/O SPECIFIC GRAVITY 2023-11-12 00:00:00 Dolly Norris [facility] POCT URINALYSIS W/O SPECIFIC GRAVITY 2023-10-30 00:00:[address] [facility] TDAP VACCINE, >11 YRS, IM 2023-10-16 15:08:[address] [facility] POCT URINALYSIS W/O SPECIFIC GRAVITY 2023-10-16 00:00:[address] [facility] SECOND AND THIRD TRIMESTER ULTRASOUND 2023-10-02 19:21:24 Mary Ellen [facility] POCT URINALYSIS W/O SPECIFIC GRAVITY 2023-09-25 00:00:00 Inez[address], [facility] URINALYSIS 2023-09-17 22:54:00 Darrion Tidwell [facility] ADC CLC OR LCC ONLY - WET PREP 2023-09-17 22:54:00 Darrion Tidwell [facility] SECOND AND THIRD TRIMESTER ULTRASOUND 2023-09-05 17:27:54 [facility] POCT URINALYSIS W/O SPECIFIC GRAVITY 2023-08-28 00:00:[address] [facility] POCT URINALYSIS W/O SPECIFIC GRAVITY 2023-07-31 00:00:[address] [facility] SCANNED LAB RESULTS 2023-07-19 06:01:00 Doctor Amrik walker, Bude [facility] POCT SARS-COV-2 ANTIGEN (BINAX NOW) 2023-07-07 17:34:00 Mary Garcia [facility] CBC WITH DIFF 2023-07-04 15:22:00 Chiquis Hyde [facility] GLYCOSYLATED HEMOGLOBIN (A1C) 2023-07-04 15:22:00 [facility]TIGEN 2023-07-04 15:22:[address] [facility] HIV 1/2 AG-AB WITH REFLEX 2023-07-04 15:22:00 [facility]23-07-03 16:33:26 Sterling Hyde [facility] <14 WEEKS US LIMITED 2023-07-03 16:32:08 [facility] 2023-07-03 16:31:46 Sterling Hydemary ann [facility] ELECTRIC CRANE OPERATOR CLINIC ULTRASOUND 2023-07-03 06:01:00 Doctor Unassigned, Bude [facility] POCT URINALYSIS W/O SPECIFIC GRAVITY 2023-07-03 00:00:[address] [facility] ELECTRIC CRANE OPERATOR CLINIC ULTRASOUND 2023-05-08 06:01:00 Doctor Unassigned, Bude [facility] POCT TEST 2023-05-08 00:00:00 Luanne Hydesol [facility] FIRST TRIMESTER LESS THAN 14 WEEKS WITH TRANSVAGINAL 2023-05-08 00:00:00 Luanne Hydesol [facility] ASSIGNMENT OF BENEFITS 2022-11-20 13:54:40 Docto r Unassigned, Bude [facility] NOTICE OF PRIVACY PRACTICES 2021-03-09 23:19:58 Doctor Unassigned, Bude [facility] CONSENT/REFUSAL FOR DIAGNOSIS AND TREATMENT 2021-03-09 23:19:39 Doctor Unassigned, Bude [facility] Encounters Start Date/Time End Date/Time Encounter Type Admission Type Attending [facility] Care Facility Care Department Encounter ID Source 2023-12-29 21:05:35 Outpatient X [facility] [id number] [facility] 2023-10-20 22:17:18 Outpatient X [facility] IN[facility] [id number] [facility] 2021-04-12 02:31:18 Emergency [facility] [id number] [facility] 2023-12-06 00:00:00 2024-07-26 07:25:24 Orders Only Doctor Unassigned, Bude Doctor Unassigned, Bude [facility] ([facility]) 1.2.840.114 350.1.13.10 4.2.7.2.686 [id number] [facility] 2024-05-22 00:00:00 2024-07-26 06:29:28 Orders Only Doctor Unassigned, Bude Doctor Unassigned, Bude [facility] ([facility]) 1.2.840.114 350.1.13.10 4.2.7.2.686 [id number] [facility] 2024-05-22 00:00:00 2024-07-26 06:29:23 Orders Only Doctor Unassigned, Bude Doctor Unassigned, Bude [facility] ([facility]) 1.2.840.114 350.1.13.10 4.2.7.2.686 [id number] [facility] 2024-07-08 00:00:00 2024-07-08 16:58:41 Telephone Vee Calvo [facility] 1.2.840.114 350.1.13.10 4.2.7.2.686 [id number] 134 [id number] [facility] 2024-07-04 13:30:00 2024-07-04 13:30:00 Outpatient R DOLLY NORRIS [facility] [id number] [facility] 2024-06-24 15:00:00 2024-06-24 15:00:00 Outpatient R LUANNE CALVOSOL LUANNE CALVOSOL [facility] [id number] [facility] 2024-06-23 13:00:00 2024-06-23 13:27:14 Outpatient R DOLLY NORRIS [facility] [id number] [facility] 2024-06-23 13:00:00 2024-06-23 13:27:14 Office Visit Dolly Norris [facility] 1.20.114 350.1.13.10 4.2.7.2.686 [id number] 134 [id number] [facility] 2024-05-20 08:00:00 2024-05-20 08:00:00 Outpatient R TOMPKINS-CECELIA S, VEE TOMPKINS-CECELIA S, VEE [facility] [id number] [facility] 2024-05-15 07:45:00 2024-05-15 08:00:00 Vamp Presser Visit Lab, Ang - Db Tompkins-Cecelia s, Vee Lab, Ang - Db [facility] 1..114 350.1.13.10 4.2.7.2.686 [id number] [facility] 2024-05-15 07:45:00 2024-05-15 07:45:00 Outpatient R TOMPKINS-CECELIA S, VEE TOMPKINS-CECELIA S, VEE [facility] [id number] [facility] 2024-05-14 00:00:00 2024-05-14 09:49:57 Telephone [facility] 1..114 350.1.13.10 4.2.7.2.686 [id number] 134 [id number] [facility] 2024-05-13 16:00:00 2024-05-13 16:36:04 [facility] 1.0.114 350.1.13.10 4.2.7.2.686 [id number] 134 [id number] [facility] 2024-05-13 09:30:00 2024-05-13 10:01:01 Outpatient R TOMPKINS-CECELIA S, VEE TOMPKINS-CECELIA S, VEE [facility] [id number] [facility] 2024-05-13 09:30:00 2024-05-13 10:01:01 Vamp Presser Visit Lab, Ang - Db Tompkins-Cecelia sofia, Vee Lab, Ang - Db [facility] 1.114 350.1.13.10 4.2.7.2.686 [id number] [facility] 2024-05-05 16:30:00 2024-05-05 16:52:10 Outpatient R DOLLY NORRIS [facility] [id number] [facility] 2024-05-05 16:30:00 2024-05-05 16:52:10 Office Visit Dolly Norris [facility] 1..114 350.1.13.10 4.2.7.2.686 [id number] 134 [id number] [facility] 2024-05-01 13:45:00 2024-05-01 13:45:00 Outpatient R TOMPKINS-CECELIA S, VEE TOMPKINS-CECELIA S, VEE [facility] [id number] [facility] 2024-04-30 00:00:00 2024-04-30 12:15:19 Telephone Tompkins-Cecelia s Vee [facility] 1.114 350.1.13.10 4.2.7.2.686 [id number] 134 [id number] [facility] 2024-04-29 00:00:00 2024-04-29 14:46:09 Telephone Tompkins-Cecelia s Vee [facility] 1..114 350.1.13.10 4.2.7.2.686 [id number] 134 [id number] [facility] 2024-04-29 00:00:00 2024-04-29 12:15:53 Telephone Brigida sofia [facility] 1.2.840.114 350.1.13.10 4.2.7.2.686 [id number] 134 [id number] [facility] 2024-04-29 00:00:00 2024-04-29 12:03:11 Telephone Brigida sofia [facility] 1.2.840.114 350.1.13.10 4.2.7.2.686 [id number] 134 [id number] [facility] 2024-04-28 16:06:00 2024-04-28 19:23:00 Emergency X VIANNEY BLAKE [facility] [id number] [facility] 2024-04-28 16:06:00 2024-04-28 19:23:00 Emergency Vianney Blake [facility] 1.2.840.114 350.1.13.10 4.2.7.2.686 [id number] [facility] 2024-04-28 00:00:00 2024-04-28 13:00:35 Telephone Brigida sofia [facility] 1.2.840.114 350.1.13.10 4.2.7.2.686 [id number] 134 [id number] [facility] 2024-04-24 09:00:00 2024-04-24 09:22:11 Outpatient R VEE CALVO MARISOL [facility] [id number] [facility] 2024-04-24 09:00:00 2024-04-24 09:22:11 Office Visit Luanne Calvosol [facility] 1.2.840.114 350.1.13.10 4.2.7.2.686 [id number] 134 [id number] [facility] 2024-02-11 00:00:00 2024-03-15 18:22:08 Patient Secure Msg Doctor Unassigned, Bude Doctor Unassigned, Bude [facility] 1..840.114 350.1.13.10 4.2.7.2.686 [id number] 134 [id number] [facility] 2024-02-22 15:30:00 2024-02-22 15:30:00 Outpatient R TOMPKINS-CECELIA S, VEE TOMPKINS-CECELIA S, VEE [facility] [id number] [facility] 2024-02-19 14:30:00 2024-02-19 14:30:00 Outpatient R TOMPKINS-CECELIA S, VEE TOMPKINS-CECELIA S, VEE [facility] [id number] [facility] 2024-02-10 00:00:00 2024-02-10 10:08:39 Case Management Tompkins-Cecelia s, Vee [facility] 1..840.114 350.1.13.10 4.2.7.2.686 [id number] 134 [id number] [facility] 2024-02-07 14:30:00 2024-02-07 14:52:25 Outpatient R TOMPKINS-CECELIA S, VEE TOMPKINS-CECELIA S, VEE [facility] [id number] [facility] 2024-02-07 14:30:00 2024-02-07 14:52:25 Routine Visit Tompkins-Cecelia s, Vee [facility] 1..840.114 350.1.13.10 4.2.7.2.686 [id number] 134 [id number] [facility] 2023-12-10 00:00:00 2024-01-12 18:22:11 Patient Secure Msg Doctor Unassigned, Bude [facility] 1.2.840.114 350.1.13.10 4.2.7.2.686 [id number] [facility] 2024-01-09 00:00:00 2024-01-09 15:05:25 Telephone Tompkins-Cecelia s, Vee [facility] 1.2.840.114 350.1.13.10 4.2.7.2.686 [id number] 134 [id number] [facility] 2024-01-08 14:30:00 2024-01-08 14:45:22 Outpatient R TOMPKINS-CECELIA S, VEE TOMPKINS-CECELIA S, VEE [facility] [id number] [facility] 2024-01-08 14:30:00 2024-01-08 14:45:22 Routine Visit Tompkins-Cecelia s, Vee [facility] 1.2.840.114 350.1.13.10 4.2.7.2.686 [id number] 134 [id number] [facility] 2024-01-01 05:07:00 2024-01-03 11:10:00 Inpatient P TOMPKINS-CECELIA S, VEE TOMPKINS-CECELIA S, VEE [facility] IN[facility] [id number] [facility] 2024-01-01 05:07:00 2024-01-03 11:10:00 Hospital Encounter Tompkins-Cecelia s, Vee [facility] 1.2.840.114 350.1.13.10 4.2.7.2.686 [id number] [facility] 2024-01-01 07:20:00 2024-01-01 08:50:00 Surgery Tompkins-Cecelia s, Vee [facility] 1.2.840.114 350.1.13.10 4.2.7.2.686 [id number] [facility] 2023-12-31 00:00:00 2023-12-31 15:06:39 [facility] 1.2.840.114 350.1.13.10 4.2.7.2.686 [id number] 134 [id number] [facility] 2023-12-29 18:39:00 2023-12-29 20:59:00 Outpatient X ADUM, LASHANDA SIEGEL, LASHANDA [facility] [id number] [facility] 2023-12-29 18:39:00 2023-12-29 20:59:00 Emergency AdumLashanda [facility] 1.2840.114 350.1.13.10 4.2.7.2.686 [id number] [facility] 2023-12-27 08:15:00 2023-12-27 08:56:14 Outpatient R JANISI Bismark, VEE TOMPKINSCOLEENI S [facility] [id number] [facility] 2023-12-27 08:15:00 2023-12-27 08:56:14 Routine Visit [facility] 1.2840.114 350.1.13.10 4.2.7.2.686 [id number] 134 [id number] [facility] 2023-12-20 16:00:00 2023-12-20 16:15:00 Routine [facility]eni [facility] 1.2840.114 350.1.13.10 4.2.7.2.686 [id number] 134 [id number] [facility] 2023-12-20 16:00:00 2023-12-20 16:00:00 Outpatient R TOMPKINS-CECELIA S, VEE BRIGIDA S, [facility] [id number] [facility] 2023-12-20 00:00:00 2023-12-20 11:04:55 Telephone Brigida sofia [facility] 1.2840.114 350.1.13.10 4.2.7.2.686 [id number] 134 [id number] [facility] 2023-12-18 14:30:00 2023-12-18 14:30:00 Outpatient R BRIGIDA Sofia, VEE TURNER-CECELIA S, [facility] [id number] [facility] 2023-12-14 18:27:00 2023-12-14 18:47:00 Emergency X ANGELA CASAS SANDRA [facility] [id number] [facility] 2023-12-14 18:27:00 2023-12-14 18:47:00 Emergency Angela Casas [facility] 1.2840.114 350.1.13.10 4.2.7.2.686 [id number] [facility] 2023-12-13 09:17:00 2023-12-13 10:15:00 Outpatient LASHANDA GALLARDO VIVIAN [facility] [id number] [facility] 2023-12-13 09:17:00 2023-12-13 10:15:00 Emergency Angela Casas Vivian L [facility] 1.2840.114 350.1.13.10 4.2.7.2.686 [id number] [facility] 2023-12-11 10:45:00 2023-12-11 10:45:00 Routine Visit Brigida sofia [facility] 1.2840.114 350.1.13.10 4.2.7.2.686 [id number] 134 [id number] [facility] 2023-12-11 10:45:00 2023-12-11 10:41:04 Outpatient R TOMPKINS-CECELIA S, VEE TOMPKINS-CECELIA S, VEE [facility] [id number] [facility] 2023-12-10 00:00:00 2023-12-10 07:21:34 Case Management Tompkins-Cecelia s, Vee [facility] 1.2.840.114 350.1.13.10 4.2.7.2.686 [id number] 134 [id number] [facility] 2023-12-07 10:00:00 2023-12-07 10:38:29 Outpatient R TOMPKINS-CECELIA S, VEE TOMPKINS-CECELIA S, [facility] [id number] [facility] 2023-12-07 10:00:00 2023-12-07 10:38:29 Vamp Presser Visit Lab, Ang - Db Tompkins-Cecelia s, [facility] 1..840.114 350.1.13.10 4.2.7.2.686 [id number] [facility] 2023-12-06 10:30:00 2023-12-06 10:30:00 Outpatient R TOMPKINS-CECELIA S, VEE TOMPKINS-CECLEIA S, VEE [facility] [id number] [facility] 2023-12-06 08:15:00 2023-12-06 08:33:31 Outpatient R TOMPKINS-CECELIA S, VEE TOMPKINS-CECELIA S, 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[employer] [facility] 1..840.114 350.1.13.10 4.2.7.2.686 [id number] [facility] 2023-10-22 00:00:00 2023-11-24 18:21:21 Patient Secure Msg Doctor Unassigned, Bude [facility] 1..840.114 350.1.13.10 4.2.7.2.686 [id number] [facility] 2023-11-23 08:00:00 2023-11-23 08:00:00 Outpatient R ROXANNE JUDGE [facility] [id number] [facility] 2023-11-12 13:00:00 2023-11-12 13:36:39 Outpatient R DOLLY NORRIS [facility] [id number] [facility] 2023-11-12 13:00:00 2023-11-12 13:36:39 Routine Visit Dolly Norris [facility] 1..840.114 350.1.13.10 4.2.7.2.686 [id number] 134 [id number] [facility] 2023-10-30 10:30:00 2023-10-30 10:34:54 Outpatient R VEE CALVO MARISOL [facility] [id number] [facility] 2023-10-30 10:30:00 2023-10-30 10:34:54 Routine Visit Brigida sofia Vee [facility] 1.2.840.114 350.1.13.10 4.2.7.2.686 [id number] 134 [id number] [facility] 2023-09-21 00:00:00 2023-10-27 18:09:51 Patient Secure Msg Doctor Unassigned, Bude [facility] 1.2840.114 350.1.13.10 4.2.7.2.686 [id number] 134 [id number] [facility] 2023-10-20 20:51:00 2023-10-20 22:10:00 Outpatient X DARRION TIDWELL [facility] [id number] [facility] 2023-10-20 20:51:00 2023-10-20 22:10:00 Emergency Darrion T[facility]well [facility] 1.0.114 350.1.13.10 4.2.7.2.686 [id number] [facility] 2023-10-16 09:30:00 2023-10-16 10:21:58 Outpatient R BRIGIDA Sofia VEEMary Ann Sofia [facility] [id number] [facility] 2023-10-16 09:30:00 2023-10-16 10:21:58 [facility] 1.20.114 350.1.13.10 4.2.7.2.686 [id number] 134 [id number] [facility] 2023-10-04 11:45:00 2023-10-04 12:00:00 Vamp Presser Visit Lab, Napoleon sofia [facility] 1.0.114 350.1.13.10 4.2.7.2.686 [id number] [facility] 2023-10-04 11:45:00 2023-10-04 11:44:50 Outpatient R TOMPKINS-CECELIA S, VEE TOMPKINS-CECELIA S, VEE [facility] [id number] [facility] 2023-10-04 08:45:00 2023-10-04 10:01:04 Vamp Presser Visit Lab, Napoleon Brucei s Vee [facility] 1.2.840.114 350.1.13.10 4.2.7.2.686 [id number] 353 [id number] [facility] 2023-10-02 11:15:00 2023-10-02 11:54:02 Vamp Presser Visit Lab, Napoleon sofia [facility] 1..840.114 350.1.13.10 4.2.7.2.686 [id number] [facility] 2023-10-02 10:30:00 2023-10-02 11:11:27 Outpatient P JOE MORLEY [facility] [id number] [facility] 2023-10-02 10:30:00 2023-10-02 11:11:27 Vamp Presser Visit Ultrasound, AníbalJoe Hodges [employer] [facility] 1..840.114 350.1.13.10 4.2.7.2.686 [id number] [facility] 2023-09-25 10:45:00 2023-09-25 10:47:38 Outpatient R TOMPKINS-CECELIA S, VEE TOMPKINS-CECELIA S, VEE [facility] [id number] [facility] 2023-09-25 10:45:00 2023-09-25 10:47:38 Routine Visit Vee Calvo [facility] 1..114 350.1.13.10 4.2.7.2.686 [id number] [facility] 2023-09-21 00:00:00 2023-09-21 00:00:00 Case Management Darrion Tidwell Ketan [facility] 1.84.114 350.1.13.10 4.2.7.2.686 [id number] [facility] 2023-09-17 17:06:00 2023-09-17 19:30:00 Outpatient X DARRION TIDWELL RUST INESSA [id number] [facility] 2023-09-17 17:06:00 2023-09-17 19:30:00 Emergency Darrion Tidwell Ketan [facility] 1.840.114 350.1.13.10 4.2.7.2.686 [id number] [facility] 2023-09-04 09:30:00 2023-09-04 10:39:00 Outpatient P JOE MORLEY [facility] [id number] [facility] 2023-09-04 09:30:00 2023-09-04 10:39:00 Vamp Presser Visit Ultrasound, [facility] Joe Morley [employer] [facility] 1.840.114 350.1.13.10 4.2.7.2.686 [id number] [facility] 2023-08-28 14:30:00 2023-08-28 15:03:17 Outpatient R VEE CALVO MARISOL [facility] [id number] [facility] 2023-08-28 14:30:00 2023-08-28 15:03:17 Routine Visit Tompkins-Cecelia s, [facility] 1.840.114 350.1.13.10 4.2.7.2.686 [id number] 134 [id number] [facility] 2023-08-27 00:00:00 2023-08-27 00:00:00 Telephone Brigida sofia [facility] 1.840.114 350.1.13.10 4.2.7.2.686 [id number] [facility] 2023-08-27 00:00:00 2023-08-27 00:00:00 Patient Secure Msg Doctor Unassigned, Bude [facility] 1.2840.114 350.1.13.10 4.2.7.2.686 [id number] [facility] 2023-08-01 08:30:00 2023-08-01 08:30:00 Outpatient R [facility] [id number] [facility] 2023-07-31 10:45:00 2023-07-31 10:54:47 Outpatient R BRIGIDA Sofia VEE Sofia [facility] [id number] [facility] 2023-07-31 10:45:00 2023-07-31 10:54:47 Routine Visit Brigida sofia [facility] 1.840.114 350.1.13.10 4.2.7.2.686 [id number] 134 [id number] [facility] 2023-07-19 00:00:00 2023-07-19 00:00:00 Orders Only Doctor Unassigned, Bude [facility] 1.840.114 350.1.13.10 4.2.7.2.686 [id number] [id number] [facility] 2023-07-17 00:00:2023-07-17 00:00:00 Telephone Chiquis Calvol [facility] 1.2840.114 350.1.13.10 4.2.7.2.686 [id number] 134 [id number] [facility] 2023-07-12 00:00:00 2023-07-12 00:00:00 Telephone Luanne Calvosol [facility] 1..114 350.1.13.10 4.2.7.2.686 [id number] 134 [id number] [facility] 2023-07-12 00:00:00 2023-07-12 00:00:00 Telephone Luanne Calvosol [facility] 1.84.114 350.1.13.10 4.2.7.2.686 [id number] 134 [id number] [facility] 2023-07-07 11:20:00 2023-07-07 12:04:34 Outpatient R MARY GARCIA [facility] [id number] [facility] 2023-07-07 11:20:00 2023-07-07 11:40:00 Urgent Care Mary Garcia Unknown, Attending [facility] 1.840.114 350.1.13.10 4.2.7.2.686 [id number] [facility] 2023-07-06 00:00:00 2023-07-06 00:00:00 Patient Secure Msg Doctor Unassigned, Bude [facility] 1.284.114 350.1.13.10 4.2.7.2.686 [id number] 134 [id number] [facility] 2023-07-04 08:45:00 2023-07-04 10:45:53 Outpatient R TOMPKINS-CECELIA S, VEE TOMPKINSJOSEPHINE Sofia VEE [facility] [id number] [facility] 2023-07-04 08:45:00 2023-07-04 10:45:53 Vamp Presser [facility] Lab, [facility] 1.2.840.114 350.1.13.10 4.2.7.2.686 [id number] [facility] 2023-07-03 10:00:00 2023-07-03 10:33:02 Outpatient R BRIGIDA Sofia VEEABIDA Sofia [facility] [id number] [facility] 2023-07-03 10:00:00 2023-07-03 10:33:02 [facility] 1.840.114 350.1.13.10 4.2.7.2.686 [id number] [facility] 2023-07-03 00:00:00 2023-07-03 00:00:00 Orders Only Doctor Unassigned, Bude [facility] 1.840.114 350.1.13.10 4.2.7.2.686 [id number] [facility] 2023-06-14 10:00:00 2023-06-14 10:00:00 Outpatient R VEE CALVO [facility] [id number] [facility] 2023-05-22 10:00:00 2023-05-22 10:00:00 Outpatient [facility]EE [facility] [id number] [facility] 2023-05-11 00:00:00 2023-05-11 00:00:00 [facility] 1.2.840.114 350.1.13.10 4.2.7.2.686 [id number] 134 [id number] [facility] 2023-05-09 00:00:00 2023-05-09 00:00:00 Case Management Luanne Calvosol [facility] 1.2.840.114 350.1.13.10 4.2.7.2.686 [id number] 134 [id number] [facility] 2023-05-08 10:00:00 2023-05-08 11:00:37 Outpatient R BRIGIDA Bismark VEEABIDA Sofia [facility] [id number] [facility] 2023-05-08 10:00:00 2023-05-08 11:00:37 Office Visit Brigida sofia [facility] 1.2.840.114 350.1.13.10 4.2.7.2.686 [id number] 134 [id number] [facility] 2023-05-08 00:00:00 2023-05-08 00:00:00 Orders Only Doctor Unassigned, Bude [facility] 1.2.840.114 350.1.13.10 4.2.7.2.686 [id number] [facility] 2023-05-01 00:00:00 2023-05-01 00:00:00 Patient Secure Msg Doctor Unassigned, Bude [facility] 1.2.840.114 350.1.13.10 4.2.7.2.686 [id number] 134 [id number] [facility] 2022-11-20 09:00:00 2022-11-20 09:26:27 Outpatient R ROXANNE JUDGE [facility] [id number] [facility] 2022-11-20 09:00:00 2022-11-20 09:26:27 Office Visit Sigifredo Judgess[facility] 1.84114 350.1.13.10 4.2.7.2.686 [id number] [facility] 2022-11-20 00:00:00 2022-11-20 00:00:00 Orders Only Doctor Unassigned, Bude [facility] 1..114 350.1.13.10 4.2.7.2.686 [id number] [id number] [facility] 2021-06-20 09:30:00 2021-06-20 09:30:00 Outpatient R MARSHA, ATTENDING [facility] [id number] [facility] 2021-03-09 18:26:00 2021-03-09 19:14:00 Emergency Margie Jones [facility] 1..114 350.1.13.10 4.2.7.2.686 [id number] [facility] 2021-03-09 00:00:00 2021-03-09 00:00:00 Orders Only Doctor Unassigned, Bude [facility] 1.2.114 350.1.13.10 4.2.7.2.686 [id number] [facility] 2020-08-17 13:00:00 2020-08-17 13:00:00 Outpatient JIMI COCHRAN [facility] [id number] [facility] 2020-08-17 11:01:51 2020-08-17 11:21:51 Laboratory Only Lab, Adc Fam Pob I Ellie Replaced by [facility] 1.114 350.1.13.10 4.2.7.2.686 [id number] [facility] 2020-01-16 00:00:00 2020-01-16 00:00:00 Letter (Out) Pcp, Patient Does Not Have A [facility] 1.0.114 350.1.13.10 4.2.7.2.686 [id number] 019 [id number] 2020-01-16 00:00:00 2020-01-16 00:00:00 Letter (Out) Pcp, Patient Does Not Have A [facility] 1.2840.114 350.1.13.10 4.2.7.2.686 [id number] [id number] [facility] 2020-01-15 00:00:00 2020-01-15 00:00:00 Letter (Out) Pcp, Patient Does Not Have A [facility] 1.0.114 350.1.13.10 4.2.7.2.686 [id number] 044 [id number] [facility] 2020-01-15 00:00:00 2020-01-15 00:00:00 Telephone [facility] 1.0.114 350.1.13.10 4.2.7.2.686 [id number] 019 [id number] [facility] 2020-01-15 00:00:00 2020-01-15 00:00:00 Letter (Out) Pcp, Patient Does Not Have A [facility] 1.0.114 350.1.13.10 4.2.7.2.686 [id number] 044 [id number] 2020-01-15 00:00:00 2020-01-15 00:00:00 Telephone [facility] 1.2840.114 350.1.13.10 4.2.7.2.686 [id number] 019 [id number] 2020-01-14 08:37:59 2020-01-14 10:06:38 Urgent Care Provider, [facility] Jimi Argueta [facility] 1.840.114 350.1.13.10 4.2.7.2.686 [id number] [facility] 2020-01-14 08:37:59 2020-01-14 10:06:38 Urgent Care Provider, [facility] Care [facility] Teresita [facility] 1.2.840.114 350.1.13.10 4.2.7.2.686 [id number] 2020-01-14 08:20:00 2020-01-14 08:20:00 Outpatient R [facility] [id number] [facility] 2020-01-14 00:00:00 2020-01-14 00:00:00 Letter (Out) Doctor Unassigned, Bude [facility] 1.2.840.114 350.1.13.10 4.2.7.2.686 [id number] [id number] [facility] 2020-01-14 00:00:00 2020-01-14 00:00:00 Letter (Out) Doctor Unassigned, Bude [facility] 1.2.840.114 350.1.13.10 4.2.7.2.686 [id number] 044 [id number] Results Test Description Test Time Test Comments Results Result Co mments Source [facility] ResourcesOBDIRECTOR OF EXHIBIT DEVELOPMENT [facility] [id number] 19:41:12 Ordered by an unspecified provider.[facility] [id number] 19:41:11Ordered by an unspecified provider. [facility] ResourcesUS FIRST TRIMESTER LESS THAN 14 WEEKS WITH [id number] 23:49:27EXAM: US FIRST TRIMESTER LESS THAN 14 WEEKS WITH TKZIMOUAFYXY03/18/2024 5:46 PM HISTORY: 23 years-old Female; Provided indication: vaginal bleeding, approx4 weeks , positive test last week, no prior US for thispregnancy, r/o ectopic . LMP = 03/29/2024. Beta-hCG: A beta-hCG has not been collected at the time of dictation.mIU/mL. G/P: . TECHNIQUE: Survey transabdominal and transvaginal ultrasound imaging andcolor Doppler evaluation of the pelvis was performed. Injection Specialist imageswere obtained. COMPARISON: None FINDINGS: Uterus: A scar is noted. Nabothian cysts are present.No intrauterine gestational sac is seen.The endometrium is 1.5 cm thick. Right Adnexa:Ovary: The right ovary measures 1.7 x 1.1 x 2.7 cm with a volume of 2.7 ml.A smallcorpus luteum is seen.. Left Adnexa:Ovary: The left ovary is not visualized.[facility] [id number] 22:46:00* Test Item Value Reference Range Interpretation Comme nts POCT PREG (test code = 1605) Positive On board controls acceptable with C Line (test code = 3574) Yes POCT PREG LOT # (test code = 3575) [id number] POCT PREG TEST DATE ( test code = 3576) 03/15/2025 Lab Interpretation (test cod e = 92942-7) Normal [facility] [id number] 15:09:00* Test Item Value Reference Range Interpretation Comme nts POCT PREG (test code = 1605) Positive very faint On board controls acceptable with C Line (test code = 3574) Yes POCT PREG LOT # (test code = 3575) POCT PREG TEST DATE ( test code = 3576) [facility] Urinalysis w/o Specific Vxtqyhy4358-79-11 20:37:00* Test Item Value Reference Range Interpretation Comme nts POCT PH U (test code = 3254) 7 mg/dl 5-8 POCT U LEUK EST (test code = 3263) negative Negative - Negative POCT U NIT (test code = 3262) negative Negative - Negati ve POCT U PROT (test code = 3259) negative Negative - Negat juliana POCT U GLU (test code = 3256) negative Negative - Negati ve POCT U KETONE (test code = 3258) negative Negative - Neg ative POCT U BLD (test code = 3257) negative Negative - Negati ve [facility] ONLY - [id number] 12:06:04* Test Item Value Reference Range Interpretation Comme nts RPR (Qualitative) (test code = 56107-0) Nonreactive Nonreactive Lab Interpretation (test cod e = 08228-6) Normal [facility] Resources[facility] [place] ONLY - [id number] 12:06:04* Test Item Value Reference Range Interpretation Comme nts RPR (Qualitative) (test code = 65424-0) Nonreactive Nonreactive Lab Interpretation (test cod e = 72093-1) Normal [facility] with Eixidakynsax4920-83-06 11:12:27* Test Item Value Reference Range Interpretation Comme nts WBC (test code = 6690-2) 7.46 4.30-11.10 RBC (test code = 789-8) 3.22 3.93-5.25 L HGB (test code = 718-7) 8.8 g/dL 11.6-15.0 L HCT (test code = 4544-3) 26.1 % 35.7-45.2 L MCV (test code = 787-2) 81.1 fL 80.6-95.5 MCH (test code = 785-6) 27.3 pg 25.9-32.8 MCHC (test code = 786-4) 33.7 g/dL 31.6-35.1 RDW-SD (test code = 11152-0) 38.7 fL 39.0-49.9 L RDW-CV (test code = 788-0) 13.2 % 12.0-15.5 PLT (test code = 777-3) 167 166-358 MPV (test code = 05291-8) 10.5 fL 9.5-12.9 NRBC/100 WBC (test code = 1472284991) 0.0 0.0-10.0 NRBC x10^3 (test code = 7105266149) See_Comment [Automated messa ge] The system which generated this result transmitted reference range: 10*3/?L. The reference range was not used to interpret this result as normal/abnormal. GRAN MAT (NEUT) % (test code = 770-8) 70.4 % IMM GRAN % (test code = 4100617227) 0.30 % LYMPH % (test code = 736-9) 19.2 % MONO % (test code = 5905-5) 8.4 % EOS % (test code = 713-8) 1.3 % BASO % (test code = 706-2) 0.4 % GRAN MAT x10^3(ANC) (test code = 6424070215) 5.25 10*3/uL 1.88-7.09 IMM GRAN x10^3 (test code = 6443090171) 0.00-0.06 LYMPH x10^3 (test code = 731-0) 1.43 10*3/uL 1.32-3.29 MONO x10^3 (test code = 742-7) 0.63 10*3/uL 0.33-0.92 EOS x10^3 (test code = 711-2) 0.10 10*3/uL 0.03-0.39 BASO x10^3 (test code = 704-7) 0.03 10*3/uL 0.01-0.07 Lab Interpretation (test code = 59850-7) Abnormal [facility] with Xsvxewcyxqax0161-27-25 11:12:27* Test Item Value Reference Range Interpretation Comme nts WBC (test code = 6690-2) 7.46 4.30-11.10 RBC (test code = 789-8) 3.22 3.93-5.25 L HGB (test code = 718-7) 8.8 g/dL 11.6-15.0 L HCT (test code = 4544-3) 26.1 % 35.7-45.2 L MCV (test code = 787-2) 81.1 fL 80.6-95.5 MCH (test code = 785-6) 27.3 pg 25.9-32.8 MCHC (test code = 786-4) 33.7 g/dL 31.6-35.1 RDW-SD (test code = 38469-3) 38.7 fL 39.0-49.9 L RDW-CV (test code = 788-0) 13.2 % 12.0-15.5 PLT (test code = 777-3) 167 166-358 MPV (test code = 84110-0) 10.5 fL 9.5-12.9 NRBC/100 WBC (test code = 7962625554) 0.0 0.0-10.0 NRBC x10^3 (test code = 4885725212) See_Comment [Automated messa ge] The system which generated this result transmitted reference range: 10*3/?L. The reference range was not used to interpret this result as normal/abnormal. GRAN MAT (NEUT) % (test code = 770-8) 70.4 % IMM GRAN % (test code = 8333892237) 0.30 % LYMPH % (test code = 736-9) 19.2 % MONO % (test code = 5905-5) 8.4 % EOS % (test code = 713-8) 1.3 % BASO % (test code = 706-2) 0.4 % GRAN MAT x10^3(ANC) (test code = 9444592198) 5.25 10*3/uL 1.88-7.09 IMM GRAN x10^3 (test code = 2353140808) 0.00-0.06 LYMPH x10^3 (test code = 731-0) 1.43 10*3/uL 1.32-3.29 MONO x10^3 (test code = 742-7) 0.63 10*3/uL 0.33-0.92 EOS x10^3 (test code = 711-2) 0.10 10*3/uL 0.03-0.39 BASO x10^3 (test code = 704-7) 0.03 10*3/uL 0.01-0.07 Lab Interpretation (test code = 00984-7) Abnormal [facility] B Surface Xkhfqas2360-05-14 15:55:25 * Test Item Value Reference Range Interpretation Comme nts HBsAg Semi-Quantitative (john t code = 5195-3) 0.11 Negative [facility] B Surface Jcvlrhk7722-96-58 15:55:25 * Test Item Value Reference Range Interpretation Comme nts HBsAg Semi-Quantitative (john t code = 5195-3) 0.11 Negative [facility] (D) IMMUNE THHGEQYB7829-35-13 13:35:57* Test Item Value Reference Range Interpretation Comme nts RHIG CANDIDATE? (test code = 5188) No- see comment Patient is not a candidate for RhIg- Patient is Rh Positive.Performed at [facility] Blood [address] [place] [id number] Free: [phone] No. [id number] [facility] ResourcesRHO (D) IMMUNE STDUQQQY2902-38-41 13:35:57* Test Item Value Reference Range Interpretation Comme nts RHIG CANDIDATE? (test code = 5188) No- see comment Patient is not a candidate for RhIg- Patient is Rh Positive.Performed at [facility] Blood [address] [place] [id number] Free: [phone] No. [id number] [facility] ResourcesCBC with Serkwlonslnc9626-26-18 12:00:50* Test Item Value Reference Range Interpretation Comme nts WBC (test code = 6690-2) 6.09 4.30-11.10 RBC (test code = 789-8) 4.00 3.93-5.25 HGB (test code = 718-7) 10.9 g/dL 11.6-15.0 L HCT (test code = 4544-3) 31.8 % 35.7-45.2 L MCV (test code = 787-2) 79.5 fL 80.6-95.5 L MCH (test code = 785-6) 27.3 pg 25.9-32.8 MCHC (test code = 786-4) 34.3 g/dL 31.6-35.1 RDW-SD (test code = 60867-1) 37.2 fL 39.0-49.9 L RDW-CV (test code = 788-0) 13.1 % 12.0-15.5 PLT (test code = 777-3) 176 166-358 MPV (test code = 20405-6) 10.2 fL 9.5-12.9 NRBC/100 WBC (test code = 6800333092) 0.0 0.0-10.0 NRBC x10^3 (test code = 4850755151) See_Comment [Automated messa ge] The system which generated this result transmitted reference range: 10*3/?L. The reference range was not used to interpret this result as normal/abnormal. GRAN MAT (NEUT) % (test code = 770-8) 60.9 % IMM GRAN % (test code = 6654041326) 0.30 % LYMPH % (test code = 736-9) 29.1 % MONO % (test code = 5905-5) 7.7 % EOS % (test code = 713-8) 1.5 % BASO % (test code = 706-2) 0.5 % GRAN MAT x10^3(ANC) (test code = 4951220630) 3.71 10*3/uL 1.88-7.09 IMM GRAN x10^3 (test code = 0067505509) 0.00-0.06 LYMPH x10^3 (test code = 731-0) 1.77 10*3/uL 1.32-3.29 MONO x10^3 (test code = 742-7) 0.47 10*3/uL 0.33-0.92 EOS x10^3 (test code = 711-2) 0.09 10*3/uL 0.03-0.39 BASO x10^3 (test code = 704-7) 0.03 10*3/uL 0.01-0.07 Lab Interpretation (test code = 31715-6) Abnormal [facility] with Ngfkwvndryhl2645-11-96 12:00:50* Test Item Value Reference Range Interpretation Comme nts WBC (test code = 6690-2) 6.09 4.30-11.10 RBC (test code = 789-8) 4.00 3.93-5.25 HGB (test code = 718-7) 10.9 g/dL 11.6-15.0 L HCT (test code = 4544-3) 31.8 % 35.7-45.2 L MCV (test code = 787-2) 79.5 fL 80.6-95.5 L MCH (test code = 785-6) 27.3 pg 25.9-32.8 MCHC (test code = 786-4) 34.3 g/dL 31.6-35.1 RDW-SD (test code = 76903-6) 37.2 fL 39.0-49.9 L RDW-CV (test code = 788-0) 13.1 % 12.0-15.5 PLT (test code = 777-3) 176 166-358 MPV (test code = 59294-4) 10.2 fL 9.5-12.9 NRBC/100 WBC (test code = 5300799100) 0.0 0.0-10.0 NRBC x10^3 (test code = 5833648977) See_Comment [Automated messa ge] The system which generated this result transmitted reference range: 10*3/?L. The reference range was not used to interpret this result as normal/abnormal. GRAN MAT (NEUT) % (test code = 770-8) 60.9 % IMM GRAN % (test code = 3587040478) 0.30 % LYMPH % (test code = 736-9) 29.1 % MONO % (test code = 5905-5) 7.7 % EOS % (test code = 713-8) 1.5 % BASO % (test code = 706-2) 0.5 % GRAN MAT x10^3(ANC) (test code = 5219123304) 3.71 10*3/uL 1.88-7.09 IMM GRAN x10^3 (test code = 2685212321) 0.00-0.06 LYMPH x10^3 (test code = 731-0) 1.77 10*3/uL 1.32-3.29 MONO x10^3 (test code = 742-7) 0.47 10*3/uL 0.33-0.92 EOS x10^3 (test code = 711-2) 0.09 10*3/uL 0.03-0.39 BASO x10^3 (test code = 704-7) 0.03 10*3/uL 0.01-0.07 Lab Interpretation (test code = 55080-4) Abnormal [facility] 1/2 Ag-Ab with Xsoadv9137-81-36 11:54:51* Test Item Value Reference Range Interpretation Comme nts HIV Semi-quantitative (test code = 22785-1) 0.22 Negative RENEE (test code = RENEE) Non-reactive for HIV-1 antigen and HIV-1/HIV-2 antibodies. ?No laboratory evidence of HIV infection. ?Repeat in 2-4 weeks if acute HIV infection is suspected. [facility] 1/2 Ag-Ab with Dbajzt4177-79-07 11:54:51* Test Item Value Reference Range Interpretation Comme nts HIV Semi-quantitative (test code = 26308-1) 0.22 Negative RENEE (test code = RENEE) Non-reactive for HIV-1 antigen and HIV-1/HIV-2 antibodies. ?No laboratory evidence of HIV infection. ?Repeat in 2-4 weeks if acute HIV infection is suspected. [facility] ResourcesType and Screen - ONCE [id number] 10:52:00 * Test Item Value Reference Range Interpretation Comme nts ABO & RH (test code = 20) B POSITIVE IAT (test code = 1185) Negative [facility] ResourcesType and Screen - ONCE [id number] 10:52:00 * Test Item Value Reference Range Interpretation Comme nts ABO & RH (test code = 20) B POSITIVE IAT (test code = 1185) Negative [facility] Urinalysis w/o Specific Dozhhzu7401-57-76 13:41:00* Test Item Value Reference Range Interpretation Comme nts POCT PH U (test code = 3254) n/a 5-8 POCT U LEUK EST (test code = 3263) n/a Negative - Negative POCT U NIT (test code = 3262) n/a Negative - Negati ve POCT U PROT (test code = 3259) negative Negative - Negat juliana POCT U GLU (test code = 3256) negative Negative - Negati ve POCT U KETONE (test code = 3258) n/a Negative - Neg ative POCT U BLD (test code = 3257) n/a Negative - Negati ve [facility] Urinalysis w/o Specific Qqpohpf2272-06-81 21:20:00* Test Item Value Reference Range Interpretation Comme nts POCT PH U (test code = 3254) n/a 5-8 POCT U LEUK EST (test code = 3263) n/a Negative - Negative POCT U NIT (test code = 3262) n/a Negative - Negati ve POCT U PROT (test code = 3259) Negative Negative - Negat juliana POCT U GLU (test code = 3256) Normal Negative - Negati ve POCT U KETONE (test code = 3258) n/a Negative - Neg ative POCT U BLD (test code = 3257) n/a Negative - Negati ve [facility] Urinalysis w/o Specific Ryyqmhq3369-99-58 15:33:00* Test Item Value Reference Range Interpretation Comme nts POCT PH U (test code = 3254) N/A 5-8 POCT U LEUK EST (test code = 3263) N/A Negative - Negative POCT U NIT (test code = 3262) N/A Negative - Negati ve POCT U PROT (test code = 3259) Negative Negative - Negat juliana POCT U GLU (test code = 3256) Negative Negative - Negati ve POCT U KETONE (test code = 3258) N/A Negative - Neg ative POCT U BLD (test code = 3257) N/A Negative - Negati ve [facility] ResourcesDSU VEO-YI1320-30-27 21:44:43Ordered by an unspecified provider.[facility] Urinalysis w/o Specific Qjtsnbj5267-84-43 13:22:00* Test Item Value Reference Range Interpretation Comme nts POCT PH U (test code = 3254) 6.5 mg/dl 5-8 POCT U LEUK EST (test code = 3263) 2+ Negative - Negative POCT U NIT (test code = 3262) negative Negative - Negati ve POCT U PROT (test code = 3259) negative Negative - Negat juliana POCT U GLU (test code = 3256) negative Negative - Negati ve POCT U KETONE (test code = 3258) negative Negative - Negative POCT U BLD (test code = 3257) negative Negative - Negati ve [facility] w/o Specific [id number] 18:35:00* Test Item Value Reference Range Interpretation Comme nts POCT PH U (test code = 3254) n/a 5-8 POCT U LEUK EST (test code = 3263) n/a Negative - Negative POCT U NIT (test code = 3262) n/a Negative - Negati ve POCT U PROT (test code = 3259) negative Negative - Negat juliana POCT U GLU (test code = 3256) negative Negative - Negati ve POCT U KETONE (test code = 3258) n/a Negative - Neg ative POCT U BLD (test code = 3257) n/a Negative - Negati ve [facility] Urinalysis w/o Specific [id number] 15:22:00* Test Item Value Reference Range Interpretation Comme nts POCT PH U (test code = 3254) n/a 5-8 POCT U LEUK EST (test code = 3263) n/a Negative - Negative POCT U NIT (test code = 3262) n/a Negative - Negati ve POCT U PROT (test code = 3259) negative Negative - Negat juliana POCT U GLU (test code = 3256) negative Negative - Negati ve POCT U KETONE (test code = 3258) n/a Negative - Neg ative POCT U BLD (test code = 3257) n/a Negative - Negati ve [facility] Urinalysis w/o Specific [id number] 15:05:00* Test Item Value Reference Range Interpretation Comme nts POCT PH U (test code = 3254) n/a 5-8 POCT U LEUK EST (test code = 3263) n/a Negative - Negative POCT U NIT (test code = 3262) n/a Negative - Negati ve POCT U PROT (test code = 3259) negative Negative - Negat juliana POCT U GLU (test code = 3256) negative Negative - Negati ve POCT U KETONE (test code = 3258) n/a Negative - Neg ative POCT U BLD (test code = 3257) n/a Negative - Negati ve [facility] Urinalysis w/o Specific [id number] 15:34:00* Test Item Value Reference Range Interpretation Comme nts POCT PH U (test code = 3254) n/a 5-8 POCT U LEUK EST (test code = 3263) n/a Negative - Negative POCT U NIT (test code = 3262) n/a Negative - Negati ve POCT U PROT (test code = 3259) negative Negative - Negat juliana POCT U GLU (test code = 3256) negative Negative - Negati ve POCT U KETONE (test code = 3258) n/a Negative - Neg ative POCT U BLD (test code = 3257) n/a Negative - Negati ve [facility] Urinalysis w/o Specific [id number] 15:34:00* Test Item Value Reference Range Interpretation Comme nts POCT PH U (test code = 3254) n/a 5-8 POCT U LEUK EST (test code = 3263) n/a Negative - Negative POCT U NIT (test code = 3262) n/a Negative - Negati ve POCT U PROT (test code = 3259) negative Negative - Negat juliana POCT U GLU (test code = 3256) negative Negative - Negati ve POCT U KETONE (test code = 3258) n/a Negative - Neg ative POCT U BLD (test code = 3257) n/a Negative - Negati ve [facility] Urinalysis w/o Specific [id number] 19:46:00* Test Item Value Reference Range Interpretation Comme nts POCT PH U (test code = 3254) n/a 5-8 POCT U LEUK EST (test code = 3263) n/a Negative - Negative POCT U NIT (test code = 3262) n/a Negative - Negati ve POCT U PROT (test code = 3259) negative Negative - Negat juliana POCT U GLU (test code = 3256) negative Negative - Negati ve POCT U KETONE (test code = 3258) n/a Negative - Neg ative POCT U BLD (test code = 3257) n/a Negative - Negati ve [facility] Urinalysis w/o Specific [id number] 16:43:00* Test Item Value Reference Range Interpretation Comme nts POCT PH U (test code = 3254) n/a 5-8 POCT U LEUK EST (test code = 3263) n/a Negative - Negative POCT U NIT (test code = 3262) n/a Negative - Negati ve POCT U PROT (test code = 3259) negative Negative - Negat juliana POCT U GLU (test code = 3256) negative Negative - Negati ve POCT U KETONE (test code = 3258) n/a Negative - Neg ative POCT U BLD (test code = 3257) n/a Negative - Negati ve [facility] SARS[facility]OV-2 ANTIGEN (BINAX NOW)2023-07-07 17:34:00* Test Item Value Reference Range Interpretation Comme nts POCT SARS-COV-2 ANTIGEN (test code = 95547-3) Positive Not Detected A On board controls acceptable with C Line (test code = 3574) Yes RENEE (test code = RENEE) accurate developme nt and interpretation of all internal controls Lab Interpretation (test code = 66736-1) Abnormal [facility]2 Ag-Ab with [id number] 01:05:01* Test Item Value Reference Range Interpretation Comme nts HIV Semi-quantitative (test code = 49787-3) 0.07 Negative RENEE (test code = RENEE) Non-reactive for HIV-1 antigen and HIV-1/HIV-2 antibodies. ?No laboratory evidence of HIV infection. ?Repeat in 2-4 weeks if acute HIV infection is suspected. [facility] B Surface [id number] 22:11:15 * Test Item Value Reference Range Interpretation Comme nts HBsAg Semi-Quantitative (john t code = 5195-3) 0.09 Negative [facility] ResourcesGlycosylated Hemoglobin (A1C)2023-07-04 21:44:43* Test Item Value Reference Range Interpretation Comme nts HGB A1C (test code = 4548-4) 4.7 % 4.0-5.7 RENEE (test code = RENEE) Reference RangesNormal: <5.7%Prediabetes: 5.7 - 6.4%Diabetes: > 6.5% Lab Interpretation (test code = 24283-6) Normal [facility] ResourcesCb with [id number] 21:15:40* Test Item Value Reference Range Interpretation Comme nts WBC (test code = 6690-2) 3.97 See_Comment L [Automated messa ge] The system which generated this result transmitted reference range: 4.30 - 11.10 10*3/?L. The reference range was not used to interpret this result as normal/abnormal. RBC (test code = 789-8) 4.25 See_Comment [Automated messa ge] The system which generated this result transmitted reference range: 3.93 - 5.25 10*6/?L. The reference range was not used to interpret this result as normal/abnormal. HGB (test code = 718-7) 12.0 g/dL 11.6-15.0 HCT (test code = 4544-3) 35.5 % 35.7-45.2 L MCV (test code = 787-2) 83.5 fL 80.6-95.5 MCH (test code = 785-6) 28.2 pg 25.9-32.8 MCHC (test code = 786-4) 33.8 g/dL 31.6-35.1 RDW-SD (test code = 15206-8) 41.1 fL 39.0-49.9 RDW-CV (test code = 788-0) 13.5 % 12.0-15.5 PLT (test code = 777-3) 206 See_Comment [Automated messa ge] The system which generated this result transmitted reference range: 166 - 358 10*3/?L. The reference range was not used to interpret this result as normal/abnormal. MPV (test code = 58743-4) 10.2 fL 9.5-12.9 NRBC/100 WBC (test code = 5778277679) 0.0 See_Comment [Automated [employer] ssage] The system which generated this result transmitted reference range: 0.0 - 10.0 /100 WBCs. The reference range was not used to interpret this result as normal/abnormal. NRBC x10^3 (test code = 9568111116) See_Comment [Automated messa ge] The system which generated this result transmitted reference range: 10*3/?L. The reference range was not used to interpret this result as normal/abnormal. GRAN MAT (NEUT) % (test code = 770-8) 59.0 % IMM GRAN % (test code = 0510498577) 0.50 % LYMPH % (test code = 736-9) 23.7 % MONO % (test code = 5905-5) 9.8 % EOS % (test code = 713-8) 6.5 % BASO % (test code = 706-2) 0.5 % GRAN MAT x10^3(ANC) (test code = 2238663649) 2.34 10*3/uL 1.88-7.09 IMM GRAN x10^3 (test code = 5734261239) 0.00-0.06 LYMPH x10^3 (test code = 731-0) 0.94 10*3/uL 1.32-3.29 L MONO x10^3 (test code = 742-7) 0.39 10*3/uL 0.33-0.92 EOS x10^3 (test code = 711-2) 0.26 10*3/uL 0.03-0.39 BASO x10^3 (test code = 704-7) 0.01-0.07 Lab Interpretation (test code = 52982-3) Abnormal [facility] Urinal[facility] w/o Specific [id number] 16:26:00* Test Item Value Reference Range Interpretation Comme nts POCT PH U (test code = 3254) N/A 5-8 POCT U LEUK EST (test code = 3263) N/A Negative - Negative POCT U NIT (test code = 3262) N/A Negative - Negati ve POCT U PROT (test code = 3259) Negative Negative - Negat juliana POCT U GLU (test code = 3256) Negative Negative - Negati ve POCT U KETONE (test code = 3258) N/A Negative - Neg ative POCT U BLD (test code = 3257) N/A Negative - Negati ve [facility] [id number] 16:46:00* Test Item Value Reference Range Interpretation Comme nts POCT PREG (test code = 1605) Positive On board controls acceptable with C Line (test code = 3574) Yes POCT PREG LOT # (test code = 3575) POCT PREG TEST DATE ( test code = 3576) [facility] [id number] 16:46:00* Test Item Value Reference Range Interpretation Comme nts POCT PREG (test code = 1605) Positive On board controls acceptable with C Line (test code = 3574) Yes POCT PREG LOT # (test code = 3575) POCT PREG TEST DATE ( test code = 3576) [facility] History and Physical Notes Date/Time Note Provider Source 2024-01-01 07:04:03 ANTEPARTUM HISTORY & PHYSICAL IDENTIFYING DATA Aleisha Mosqueda is 23 year old, /White, 39w3d, female with CHARLI 01/05/2024, by Last Menstrual Period. : 2000 Primary Care Physician: PATIENT DOES NOT HAVE A PCP Hospital Day: 1 CHIEF COMPLAINT Repeat CS HISTORY OF PRESENT ILLNESS 23 year old @39w3d presents for an elective repeat CS. +FM. Denies vb or LOF. PAST OBSTETRIC HISTORY OB History Para Term AB Living 2 1 1 1 SAB IAB Ectopic Multiple Live Births 1 # Outcome Date GA Lbr Jatin/2nd Weight Sex Delivery Anes PTL Lv 2 Current 1 Term 2018 CS-Unspec SHANE PAST MEDICAL HISTORY Problem list: Patient Active Problem List Diagnosis Date Noted Morbid obesity with body mass index of 40.0-49.9 01/01/2024 39 weeks gestation of 12/31/2023 High-risk in third trimester 10/16/2023 Anemia of mother in , antepartum 10/16/2023 Previous section complicating 07/03/2023 Chlamydia infection affecting in first trimester 05/09/2023 Operations: Past Surgical History: Procedure Laterality Date SECTION CHOLECYSTECTOMY Prior surgeries at outside hospitals: none Past Medical History: Diagnosis Date Migraine STD (sexually transmitted disease) CURRENT HEALTH STATUS Medications: Current Facility-Administered Medications Medication Dose Route Frequency Last Rate Last Admin carboprost (HEMABATE) injection 250 mcg 250 mcg Intramuscular Q2HPRN ceFAZolin (ANCEF) 2,000 mg in NaCl 0.9% (NS) 100 mL MINI-BAG 2,000 mg IV Piggyback ONCE D5W-LR IV infusion 1,000 mL 1,000 mL IV Infusion TITRATE lactated ringers IV infusion 500 mL 500 mL IV Infusion PRN - SEE INSTRUCTIONS lidocaine 1% (PF) (XYLOCAINE) injection 0.3 mL 0.3 mL Infiltration PRN - SEE INSTRUCTIONS lidocaine 1% (XYLOCAINE) 10 mg/mL (1 %) injection 50 mL 50 mL Infiltration PRN - SEE INSTRUCTIONS methylergonovine (METHERGINE) injection 0.2 mg 0.2 mg Intramuscular Q4HPRN miSOPROStoL (CYTOTEC) tablet 200 mcg 200 mcg Rectal PRN oxytocin (PITOCIN) 30 units in NS 500 mL IV infusion 600 mL/hr IV Infusion PRN sodium citrate-citric acid (BICITRA) 500-334 mg/5 mL solution 30 mL 30 mL Oral PRE-PROCEDURE ONCE tranexamic acid (CYKLOKAPRON) 1,000 mg in NaCl 0.9% (NS) 250 mL piggyback 1,000 mg IV Piggyback PRN Allergies and drug reactions: Amoxicillin HOME MEDICATIONS Medications Prior to Admission Medication Sig Dispense Refill Last Dose ufomlwxcygcmg-ztwu-huwaacxesw (ESGIC) per capsule Take 1 capsule by mouth every 4 (four) hours as needed for Pain. 10 capsule 0 Taking Nitrofurantoin&Nit. Macrocryst (MACROBID) 100 mg capsule Take 1 capsule by mouth in the morning and 1 capsule in the evening. 10 capsule 0 Not Taking ondansetron (ZOFRAN) 4 mg tablet Take 1 tablet by mouth every 8 (eight) hours as needed for Nausea and Vomiting (N/V). 20 tablet 1 Not Taking vit no.124/iron/folic ( VITAMIN ORAL) Take by mouth. Taking Last taken: yesterday SOCIAL HISTORY Tobacco History: Social History Tobacco Use Smoking Status Never Smokeless Tobacco Never Drug History: Social History Substance and Sexual Activity Drug Use Never Alcohol History: Social History Substance and Sexual Activity Alcohol Use Not Currently Comment: social FAMILY HISTORY Family History Problem Relation Age of Onset Diabetes Maternal Grandmother Diabetes Maternal Grandfather REVIEW OF SYSTEMS General: negative Constitutional: weight gain Eyes: negative ENT/Mouth: negative Cardiovascular: negative Respiratory: negative Gastrointestinal:negative Genitourinary: negative Musculoskeletal: negative Skin/breast: negative Neurological: negative Psychiatric: negative Endocrine: negative Hemat/Lymph: negative Allergic/Immuno:none VITAL SIGNS BP: (116-129)/(71-83) Temp: [36.7 ?C (98 ?F)] Temp source: Oral (12/31 0525) Pulse: [60-77] Resp: [18] SpO2: [100 %] Height: [162.6 cm (5' 4")] Weight: [108.4 kg (239 lb)] BMI (calculated): [41.02] PHYSICAL EXAMINATIONS General: well-developed, well-nourished Lungs: clear to auscultation bilaterally Cardiology: regular rate and rhythm Abdomen: tenderness - normal : deferred Extremities: no clubbing, cyanosis, or edema Neuro: cranial nerves II through XII grossly intact; sensation grossly intact; muscle strength 5 out of 5 in all four extremities REVIEW OF LABORATORY, PATHOLOGY, AND RADIOLOGY DATA Lab results: CBC BMP PT/INR WBC (10*3/?L) Date Value 01/01/2024 6.09 NA (mmol/L) Date Value 06/27/2018 141 No results found for: "PT" RBC (10*6/?L) Date Value 01/01/2024 4.00 K (mmol/L) Date Value 06/27/2018 4.6 No results found for: "PTINR" PLT (10*3/?L) Date Value 01/01/2024 176 CALCIUM (mg/dL) Date Value 06/27/2018 9.4 HGB (g/dL) Date Value 01/01/2024 10.9 (L) CL (mmol/L) Date Value 06/27/2018 105 aPTT HCT (%) Date Value 01/01/2024 31.8 (L) BUN (mg/dL) Date Value 06/27/2018 13 No results found for: "APTTPAT" CREATININE (mg/dL) Date Value 06/27/2018 0.80 GLUCOSE (mg/dL) Date Value 06/27/2018 130 (H) CO2 TOTAL (mmol/L) Date Value 06/27/2018 28 Type & Screen Rubella Varicella ABO & RH (no units) Date Value 01/01/2024 B POSITIVE Rubella screen IgG (no units) Date Value 07/04/2023 Equivocal No results found for: "VZVG" No results found for: "TSABINT" Hep B HIV Syphilis No results found for: "HBS" No results found for: "HIV" No results found for: "SYPG" Group B Strep Chlamydia No results found for: "CGBS" C. trachomatis Nucleic Acid (no units) Date Value 12/06/2023 Negative X-ray results: none Placenta Accreta Screening Prior ? : Yes Prior Uterine Surgery?: Yes Placenta low lying/previa in current ? : No Screening outcome: A positive screening outcome indicates a history of prior delivery or prior uterine surgery, AND the presence of either a placenta low lying/previa or ultrasound suspicion of PASD in the current . Negative screening. DELIVERY PLAN RCS HEART RATE 140 cat 1 Faxon: irregular ASSESSMENT AND PLAN 23 year old @39w3d presents for Repeat CS. Admit Ancef ordered Reassuring status Vee Hyde MD [facility] Notes Date/Time Note Provider Source 2024-07-09 10:51:30 Returned patients call. Patient advised that 1 pack of OCP has been sent to her pharmacy but she will need to return to office with Dolly Norris DNP to discuss OCP. Patient states she will call back to schedule appointment. Patient advised we cannot provide refills prior to being seen in office. Patient verbalized understanding. Edward Nugent RN 07/09/2024 10:52 AM S OPERATIONS LEAD Edward Nugent RN [facility] 2024-07-08 16:56:24 1 pack of OCP sent and pt needs to RTC to discuss OCP options and sign consent for additional refills. [facility] 2024-07-08 08:58:09 Last OV on 06/23/24 with Dolly Norris DNP: 4. Encounter for test with result negative - POCT Test Informed pt that has resolved with negative test result Stressed importance of abstinence or condom use until IUD is inserted RTC at next availability for IUD insertion. Dolly Norris DNP, SENIOR MEDICAL WRITER- 06/23/2024 at 1:11 PM Will route to provider for review. LMP 06/18/24. Edward Nugent RN 07/08/2024 8:59 AM S OPERATIONS LEAD Edward Nugent RN [facility] 2024-07-08 08:54:42 Aleisha Mosqueda is a 23 year old female patient called states she would like to request oral BC. Says it has been discussed at last visit. Does not want to move forward with IUD insert. [facility] [id number] [place] [address] S OPERATIONS LEAD Linh Gallo [facility] 2024-05-15 07:45:00 Images from the original note were not included. Venipuncture collection performed by clean technique on the right anticubitus. Total of 1 attempts were made. Slight pressure and a bandage/dressing were applied to the site(s). The patient experienced no complications. The following specimens were processed according to instructions and sent to [facility] per lab order on 05/15/2024 : LT BLUE SST 1 RED LAV PPT DK GREEN (LiHep) DK GREEN (SodH) PICKETT DK BLUE (K2) DK BLUE (S) ACD Blood Culture NIPT/NTD S OPERATIONS LEAD [facility] 2024-05-14 09:45:53 Name and verified, pt states she was having some blood clots when she presented at her visit yesterday, but when she got home she noticed increased blood clots with left sided pain. Pain resolved later in the day. Pt reports today the left side abdominal pain is back 3/10 on pain scale. Pt is changing her pads every hour with continued small blood clots when she wipes. Pt states she has lower back pain. Pt was advised to go to ER for further evaluation. Pt verbalized understanding Saida Casarez RN 05/14/2024 9:49 AM S OPERATIONS LEAD Saida Casarez RN [facility] 2024-05-14 09:11:17 Aleisha Mosqueda is a 23 year old female The patient was seen on May 13. The patient is experiencing blood clots that began on the same day, accompanied by lower back pain. The patient would like to consult with a nurse or physician to determine if this is within the normal range of symptoms. IE Sultana [facility] 2024-05-13 09:30:00 Images from the original note were not included. Venipuncture collection performed by clean technique on the left anticubitus. Total of 1 attempts were made. Slight pressure and a bandage/dressing were applied to the site(s). The patient experienced no complications. The following specimens were processed according to instructions and sent to [facility] per lab order on 05/13/2024 : LT BLUE SST 1 RED LAV 1 PPT DK GREEN (LiHep) DK GREEN (SodH) PICKETT DK BLUE (K2) DK BLUE (S) ACD Blood Culture NIPT/NTD [facility] 2024-04-30 12:23:09 Name and verified, pt was informed I spoke to pharmacist at [facility] and prescription is there and ready for chart picker. Pt verbalized understanding. Saida Casarez RN 04/30/2024 12:15 PM S OPERATIONS LEAD Saida Casarez RN [facility] 2024-04-30 12:14:29 Name and verified, pt was informed I spoke to pharmacist at [facility] and prescription is there and ready for chart picker. Pt verbalized understanding. Saida Casarez RN 04/30/2024 12:15 PM S OPERATIONS LEAD Saida Casarez RN [facility] 2024-04-30 11:10:51 Aleisha Mosqueda is a 23 year old female Patient stated that when she went to get her medication there was no medication on file for the partner. Please assist and thank you Partner - Donte Huber 01/27/2001 [facility] [id number] - [place] [address] S OPERATIONS LEAD Velvet Richardson [facility] 2024-04-30 10:11:46 Attempted to reach pt, no answer, left a vm Saida Casarez RN 04/30/2024 10:11 AM S OPERATIONS LEAD Saida Casarez RN [facility] 2024-04-30 09:55:15 Patient would like a call from the nurse to discuss this prescription. IE Vidales [facility] 2024-04-29 14:24:40 Images from the original note were not included. Pt would like to know which pharmacy that the medication for the partner was sent. IE Sultana [facility] 2024-04-29 12:21:50 Addended by: SAIDA CASAREZ on: 04/29/2024 12:21 PM Modules accepted: Orders [facility] 2024-04-29 12:21:16 Name and verified, pt is aware of rx sent to pharmacy Appt made for ER f/u Saida Casarez RN 04/29/2024 12:21 PM [facility] 2024-04-29 12:14:01 Name and verified, pt is aware of Rx sent to pharmacy. Pt provided partner info for Donte Huber for treatment. Both advised to refrain from sexual intercourse for 2 weeks after treatment. Pt and partner verbalized understanding. Saida Casarez RN 04/29/2024 12:15 PM S OPERATIONS LEAD Saida Casraez RN [facility] 2024-04-29 12:10:03 Yes please, flagyl 500 mg BID for 5 days. Pt will also need Er fu to watch titers. [facility] 2024-04-29 12:08:11 Images from the original note were not included. Pt returning the call regarding test results, pt was advised rx was sent to the pharmacy. Encounter closed, S OPERATIONS LEAD Elizabeth Sultana [facility] 2024-04-29 12:02:07 Attempted to reach pt, no answer, left a vm Saida Casarez RN 04/29/2024 12:02 PM Rx sent to pharmacy [facility] 2024-04-29 11:11:52 Please treat with Azithromycin 1 gram po times 1 dose. [facility] 2024-04-29 10:42:16 Name and verified, pt went to ER yesterday for vaginal bleeding, U/S was performed. Please review Pt and partner have not yet been treated for STD. Vee Hyde MD 04/25/2024 1:55 PM SALES OPERATIONS LEAD Please let the patient know that her vagina swab shows Chlamydia. The is a sexually transmitted infection. Antibiotic therapy will be set to her pharmacy. Patient will need to inform partners and return for test of cure. Do not see that patient has had serum testing done. Need to know for sure if pt is to know what type of abx to give!! [facility] 2024-04-29 08:30:42 Aleisha Mosqueda is a 23 year old female Patient wants to go over plan of care in regards to the lab results from the ER since it is showing that she is positive for . Patient stated that the provider was to administer medication but is unaware of the name. Please assist and thank you. IE Richardson [facility] 2024-04-28 19:22:16 Pt given printed and verbal discharge instructions regarding vaginal bleeding, Pt verbalized understanding of instructions, pt awake alert oriented, resp reg unlabored, skin w/d, color appropriate for race, moves all ext well,pt encouraged to follow up with pcp and or OBGYN Advised to seek medical attention for new/prolonged/worsening of symptoms, No adverse reaction to meds given in ER noted upon discharge Awake, alert oriented, resp reg unlabored, skin w/d, pt leaving amb with steady gait, in no apparent distress, IE Luna RN [facility] 2024-04-28 16:03:32 Vaginal bleeding and cramping since Sunday. Patient had positive preg test at OB on , LMP 03/29/24. HX: denies. IE Dominguez RN [facility] 2024-04-28 12:54:51 Name and verified, pt states she was having pinkish spotting for two days, and Sunday she had mild cramping. Today pt started "cramping more like a period and started having bleeding like her period as well, pt describes bleeding as dark red in color". Pt reports she has not changed since 1030 when the bleeding started. Strong ER precautions given. Pt verbalized understanding Pt states she will go to lab tomorrow for beta hcg test. Saida Casarez RN 04/28/2024 1:00 PM S OPERATIONS LEAD Saida Casarez RN [facility] 2024-04-28 11:53:33 Images from the original note were not included. Patient would like to speak to a nurse to confirm if she is as per last visit state. For the past two days pt think that she already have her monthly period with mild cramping and darker color discharge. IE Sultana [facility] 2024-04-24 09:00:00 BV present, will await serum bhcg testing. [facility] 2024-01-09 15:00:40 FMLA forms completed. Patient provided a copy. Will be uploaded to chart. Edward Nugent RN 01/09/2024 3:01 PM Edward Nugent RN [facility] 2024-01-03 07:26:09 Problem: Pain Goal: Control of pain at or below patient's documented comfort goal 01/03/2024725 by Lanie Mayo RN Outcome: Adequate for discharge 01/02/20241821 by Lanie Mayo RN Outcome: Progressing as expected Problem: Falls, Risk of Goal: Absence of falls 01/03/2024725 by Lanie Mayo RN Outcome: Adequate for discharge 01/02/20241821 by Lanie Mayo RN Outcome: Progressing as expected Problem: Infection Risk Goal: Absence of infection 01/03/2024725 by Lanie Mayo RN Outcome: Adequate for discharge 01/02/2024 182 by Lanie Mayo RN Outcome: Progressing as expected Problem: Discharge Planning - Goal: Adequate for discharge 01/03/2024 07 by Lanie Mayo RN Outcome: Adequate for discharge 01/02/2024 182 by Lanie Mayo RN Outcome: Progressing as expected Goal: Mood stable 01/03/2024725 by Lanie Mayo RN Outcome: Adequate for discharge 01/02/2024 182 by Lanie Mayo RN Outcome: Progressing as expected Problem: Discharge Planning - Goal: Adequate for discharge 01/03/2024725 by Lanie Mayo RN Outcome: Adequate for discharge 01/02/2024 182 by Lanie Mayo RN Outcome: Progressing as expected Goal: Mood stable 01/03/2024725 by Lanie Mayo RN Outcome: Adequate for discharge 01/02/20241821 by Lanie Mayo RN Outcome: Progressing as expected Lanie Mayo RN [facility] 2024-01-02 21:45:27 Problem: Pain Goal: Control of pain at or below patient's documented comfort goal Outcome: Progressing as expected Problem: Falls, Risk of Goal: Absence of falls Outcome: Progressing as expected Problem: Infection Risk Goal: Absence of infection Outcome: Progressing as expected Problem: Discharge Planning - Goal: Adequate for discharge Outcome: Progressing as expected Goal: Mood stable Outcome: Progressing as expected Problem: Discharge Planning - Goal: Adequate for discharge Outcome: Progressing as expected Goal: Mood stable Outcome: Progressing as expected Leigha Castro RN [facility] 2024-01-02 18:22:49 Problem: Pain Goal: Control of pain at or below patient's documented comfort goal Outcome: Progressing as expected Problem: Falls, Risk of Goal: Absence of falls Outcome: Progressing as expected Problem: Infection Risk Goal: Absence of infection Outcome: Progressing as expected Problem: Discharge Planning - Goal: Adequate for discharge Outcome: Progressing as expected Goal: Mood stable Outcome: Progressing as expected Problem: Discharge Planning - Goal: Adequate for discharge Outcome: Progressing as expected Goal: Mood stable Outcome: Progressing as expected [facility] 2024-01-01 20:39:52 Problem: Pain Goal: Control of pain at or below patient's documented comfort goal Outcome: Progressing as expected Problem: Falls, Risk of Goal: Absence of falls Outcome: Progressing as expected Problem: Infection Risk Goal: Absence of infection Outcome: Progressing as expected Problem: Discharge Planning - Goal: Adequate for discharge Outcome: Progressing as expected Goal: Mood stable Outcome: Progressing as expected Problem: Discharge Planning - Goal: Adequate for discharge Outcome: Progressing as expected Goal: Mood stable Outcome: Progressing as expected [facility] 2024-01-01 15:54:28 Problem: Discharge Planning - Goal: Adequate for discharge Outcome: Progressing as expected Goal: Mood stable Outcome: Progressing as expected Problem: Discharge Planning - Goal: Adequate for discharge Outcome: Progressing as expected Goal: Mood stable Outcome: Progressing as expected [facility] Norma Mccray RN [facility] 2024-01-01 15:48:24 Problem: Intrapartum process (including labor pain) Goal: Reduction in pain sensation Outcome: Resolved Problem: Pain Goal: Reduction in pain sensation Outcome: Resolved Goal: Control of pain at or below patient's documented comfort goal Outcome: Progressing as expected Problem: Falls, Risk of Goal: Absence of falls Outcome: Progressing as expected Problem: Infection Risk Goal: Absence of infection Outcome: Progressing as expected Problem: Discharge Planning - Goal: Adequate for discharge Outcome: Progressing as expected Goal: Mood stable Outcome: Progressing as expected [facility] 2024-01-01 15:23:09 Images from the original note were not included. This note was copied from a baby's chart. Stopping Breast Milk Production Breast stimulation encourages milk production. The more milk is removed the body responds by making more milk. When the breast stays full it signals the body to stop making milk. Breast fullness and swelling can be painful. This is normal and may last 3- 4 days. Helpful tips to stop breast milk production Do not bind your breast. This can lead to plugged ducts, mastitis, and increased pain. Wear a supportive bra day and night. Nursing pads are helpful for leaking milk. Talk to your provider about over the counter pain relievers such as ibuprofen or acetaminophen to help relieve pain. Ice packs or cold cabbage leaves on the breast can help decrease swelling and pain. Use 3-4 times per day for 15-20 minutes. Drink when you are thirsty. Drinking less fluids does not help and can make you dehydrated. If your breasts become very uncomfortable express just enough milk to reduce the pressure. Call your healthcare provider Call your healthcare provider right away if you have any of the following: A fever or chills Extreme tiredness and body aches, as if you have the flu Burning or pain in one or both breasts Red streaks on a breast Hard or lumpy spots in one or both breasts A feeling of warmth or heat in one or both breasts It can take some women up to 10 days or longer for the breasts to stop making milk. Please contact your primary care provider for questions or concerns. If you have a fever over 101?F (38.3?C), pain and/or redness in a specific area of the breast, feel like you are coming down with the flu, it could be a sign of breast or other infection. It may be temporarily necessary to remove a majority of the milk from the breasts by hand expression or pumping to help the infection clear, along with the use of antibiotics. Contact your primary care provider. Megan FLANAGAN, RN, IBCLC Megan You RN [facility] 2024-01-01 08:30:00 Problem: Intrapartum process (including labor pain) Goal: Absence of or reduction of complications of labor 01/01/2024900 by Greer Schulz RN Outcome: Resolved 01/01/2024 05 by Greer Schulz RN Outcome: Progressing as expected Goal: Able to cope with pain 01/01/2024900 by Greer Schulz RN Outcome: Resolved 01/01/2024509 by Greer Schulz RN Outcome: Progressing as expected Goal: Adequate to move to next level of care 01/01/2024900 by Greer Schulz RN Outcome: Resolved 01/01/2024509 by Greer Schulz RN Outcome: Progressing as expected Goal: Reduction in pain sensation 01/01/2024900 by Greer Schulz RN Outcome: Progressing as expected 01/01/2024509 by Greer Schulz RN Outcome: Progressing as expected Problem: Pain Goal: Reduction in pain sensation 01/01/2024900 by Greer Schulz RN Outcome: Progressing as expected 01/01/2024509 by Greer Schulz RN Outcome: Progressing as expected Goal: Control of pain at or below patient's documented comfort goal Outcome: Progressing as expected Problem: Falls, Risk of Goal: Absence of falls 01/01/2024900 by Greer Schulz RN Outcome: Progressing as expected 01/01/2024509 by Greer Schulz RN Outcome: Progressing as expected Problem: Infection Risk Goal: Absence of infection 01/01/2024900 by Greer Schulz RN Outcome: Progressing as expected 01/01/2024509 by Greer Schulz RN Outcome: Progressing as expected Problem: Discharge Planning - Goal: Adequate for discharge Outcome: Progressing as expected Greer Schulz RN [facility] 2024-01-01 08:23:54 Delivery Date: 01/01/2024 Delivery Time: 7:53 AM DELIVERY BY SECTION Date of Service: : 01/01/2024 at 7:53 AM Admitted for: scheduled RCS , Repeat Lower uterine transverse section with lower segment uterine extension, no BTL, Pfannenstiel, Closed with 0-vicryl, EBL 400 cc, No complications, Findings: FTLFC, minimal amniotic fluid Delivery Summary Sex: female [place] Weight: 3600 g 1 Minute 5 Minute 10 Minute Totals: 8 8 Primary Indication: The patient was taken to the operating room for a repeat section due to: Elective Repeat Section at 39w3d weeks. Procedures: Repeat Lower uterine transverse section with lower segment uterine extension Specimens Removed: Placenta Surgeon: Vee Hyde MD Report: Prophylactic antibiotic, Ancef 2 grams was given before patient was taken to OR. After arrival to the operating room patient was placed in the supine position with left lateral tilt after administration of spinal anesthesia. Laparotomy A pfannenstiel incision was made through the anterior abdominal wall with #10 scalpel. The incision was extended sharply with the #10 scalpel through the subcutaneous tissue to the level of fascia. The fascia was entered sharply with a #10 scalpel (Pfannenstiel) in the midline and extended in semi-elliptical fashion with Jose scissor. The underlying muscles were dissected off the overlying fascia by grasping the superior aspect of fascia with two cookie clamps and blunt dissection was used along the midline. The fascia was further from rectus muscle with Jose scissor and/or cautery. In similar fashion, the lower aspect of fascia was also grsaped with two Cookie clamps and both blunt and sharp dissection was used to separate fascia from rectus muscle. The rectus muscles were in the midline bluntly with Saida hemostat. The peritoneum was then entered bluntly. The peritoneal incision was then extended superiorly and inferiorly under direct visualization with care being taken to avoid bladder and bowel. There were minimal filmy adhesions which were taken down with autery and/or Metzebaum scissor. The peritoneal incision was enlarged bluntly by lateral traction from the surgeon's and assistant at surgery's hand. Delivery A bladder flap was developed by grasping with [place] forcep and enter with Metzenbaun scissor. Then sharp and blunt dissection with Metzenbaum scissor and fingers were performed. A low transverse hysterotomy was made then with #10 scalpel and extended laterally and cephalad with fingers in a low transverse fashion with Manu Mendez technique with care being taken to avoid injury to the fetus. The amniotic (membranes) were then entered with spontaneous rupture of membrane, and the amniotic fluid was noted to be minimal clear. The head was delivered via an obstetric vacum. The vacuum cup was applied to head and delivered through the hysterotomy incision in a non-traumatic fashion with aid of fundal pressure applied by the assistant news director surgeon. Specify the applications, number of tractions, number of pop-off occurred: 1 . The body was delivered with traction on the head along with fundal pressure. After delivery of body-bulb suction was performed from oropharynx and nostril with removal of clear amniotic fluid. Fetus was delivered in cephalic presentation. With delivery the baby, further extension of incision to left lower uterine segment .Delayed cord clamping was performed for 30-60 seconds. Placenta was delivered spontaneously with steady traction on cord and manual separation of placenta from uterine wall. Closure Uterine cavity was cleaned after placental delivery with lap sponge x 2. The hysterotomy was closed in two layers using 0 vicryl with continuous locking stitches and followed by vertical imbricating stitches. Hemostasis was achieved as needed with electrocautery and 0 figure eight suture ligation. The ovaries/tubes/uterine surface were evaluated. They were found to be normal. Fascia was closed with running stitches using 0 vicryl. Hemostasis was checked for and found to be adequate. The subcutaneous tissue was irrigated and hemostasis was achieved where needed with electrocautery. Subcutaneous layer was closed with 2-0 plain gut. The skin was then closed with subcutaneous stitches using 2-0 vicryl sutures. The incision was cleaned and covered with a compression bandage and the procedure considered to be complete at this time. Intraoperative Complications: none EBL: 400 Uterotonics: none Disposition: The patient tolerated the procedure well. She was recovered in the Labor and Delivery Room with routine care in stable condition, with a contracted uterus and normal transvaginal bleeding. The was sent to [facility]. The placenta was not sent to pathology. [facility] 2024-01-01 05:10:10 Problem: Intrapartum process (including labor pain) Goal: Absence of or reduction of complications of labor Outcome: Progressing as expected Goal: Able to cope with pain Outcome: Progressing as expected Goal: Adequate to move to next level of care Outcome: Progressing as expected Goal: Reduction in pain sensation Outcome: Progressing as expected Problem: Pain Goal: Reduction in pain sensation Outcome: Progressing as expected Goal: Control of pain at or below patient's documented comfort goal Outcome: Progressing as expected Problem: Falls, Risk of Goal: Absence of falls Outcome: Progressing as expected Problem: Infection Risk Goal: Absence of infection Outcome: Progressing as expected [facility] 2023-12-31 15:03:58 Spoke to labor and delivery. Labor and delivery wants the patient to arrive at 0500. Patient advised to arrive at the hospital at 0500 and nothing to eat or drink after midnight. Patient verbalized understanding. Edward Nugent RN 12/31/2023 3:06 PM Edward Nugent RN [facility] 2023-12-31 10:57:13 Pt scheduled cc stanislav 12/31, would like to know what time she needs to be at the hospital. Elizabeth Sultana [facility] 2023-12-29 18:38:00 Pt to ED CO cramping like abd pain starting this morning and throbbing vaginal pressure starting yesterday at 0000. Pt states that she noticed a sticky vaginal discharge yesterday. Scheduled for a Csection on Sunday. OB is turner robles. with previous c section. Jessica Hickey RN [facility] 2023-12-29 18:38:00 Report to Scarlet RONDON [facility] 2023-12-27 08:15:00 ROUTINE VISIT 12/27/2023 9:04 AM MAHSA Mosqueda is a 23 year old at 38w5d who presents for routine visit. She has no complaints today; loss of fluid, vaginal bleeding, and signs or symptoms of pre-eclampsia. Good movement. Occasional contractions OBJECTIVE BP 112/73 (BP Location: Left arm, Patient Position: Sitting, BP CUFF SIZE: Adult Large) | Pulse 67 | Resp 16 | Ht 5' 4" (1.626 m) | Wt 239 lb 8 oz (108.6 kg) | LMP 03/31/2023 (Exact Date) | SpO2 99% | BMI 41.11 kg/m? Physical Exam: Gen: A&Ox3, NAD Pulm: No labored breathing Abd: Soft, gravid, NTTP, ND, no rebound or guarding Ext: No calf tenderness ASSESSMENT: Aleisha Mosqueda is a 23 year old at 38w5d who presents for routine visit. Patient Active Problem List Diagnosis Chlamydia infection affecting in first trimester Previous section complicating High-risk in first trimester High-risk in third trimester Anemia of mother in , antepartum PLAN 1. High-risk in third trimester --11/27/23: 84%ile. 2. Previous section complicating --Plan RCS 12/31 3. ASB (asymptomatic bacteriuria) - Urine Culture; Future - Urine Culture 4. 38 weeks gestation of - POCT Urinalysis w/o Specific [place] - Urine Culture; Future - Urine Culture [facility] 2023-12-20 16:00:00 ROUTINE VISIT 12/20/2023 4:38 PM MAHSA Mosqueda is a 23 year old at 37w5d who presents for routine visit. She has some complaints today; loss of fluid, vaginal bleeding. . Good movement. Occasional contractions. Pt went to [facility] today for migraine DECKER with right handed numbness. H/o similar DECKER in past. Was given IV fluids and treated for bladder infection DECKER slightly improved but still present OBJECTIVE BP 106/72 (BP Location: Left arm, Patient Position: Sitting, BP CUFF SIZE: Adult Large) | Pulse 79 | Temp 36.2 ?C (97.2 ?F) | Ht 5' 3" (1.6 m) | Wt 242 lb 12.8 oz (110.1 kg) | LMP 03/31/2023 (Exact Date) | BMI 43.01 kg/m? Physical Exam: Gen: A&Ox3, NAD Pulm: No labored breathing Abd: Soft, gravid, NTTP, ND, no rebound or guarding Ext: No calf tenderness Neuro: 2-12 intact ASSESSMENT: Aleisha Mosqueda is a 23 year old at 37w5d who presents for routine visit. Patient Active Problem List Diagnosis Chlamydia infection affecting in first trimester Previous section complicating High-risk in first trimester High-risk in third trimester Anemia of mother in , antepartum PLAN 1. High-risk in third trimester --11/26: 84%ile - hwzukxqgxfmyo-yyho-sptfdcrtl l (ESGIC) per capsule; Take 1 capsule by mouth every 4 (four) hours as needed for Pain. Dispense: 10 capsule; Refill: 0 2. Previous section complicating --plan RS 12/31 3. 37 weeks gestation of - POCT Urinalysis w/o Specific [place] 4. Intractable migraine without status migrainosus, unspecified migraine type --Will try some esgic. If no improvement pt to return to hospital. - qqkfegszuyqhk-jejo-oiuflxesp l (ESGIC) per capsule; Take 1 capsule by mouth every 4 (four) hours as needed for Pain. Dispense: 10 capsule; Refill: 0 [facility] 2023-12-20 10:56:56 Name and verified. Pt stated that DECKER started yesterday. Blurred vision started today. DECKER pain 4/10 today. Worse yesterday. DECKER behind eyes. Taken Tylenol for pain. Denies swelling, n/v, ruq abd pain. Pt stated that movement has decreased. Instructed pt to go to L&D to be evaluated. Holden Grimm advised. Verbalized understanding.EVY GOEL RN 12/20/2023 11:04 AM Evy Goel RN [facility] 2023-12-20 10:51:33 Patient called in having blurred vision, dizziness, and overall not feeling well. Nanci Vidales [facility] 2023-12-14 18:37:28 PT D/C home. GCS15, VS stable, no ataxia noted. Given no prescriptions and D/C paperwork. Pt ambulatory at time of discharge. Pt educated on tenosynovitis, med usage, follow up care, s/s worsening condition. Pt verbalized understanding. Carlyn Hitchcock RN [facility] 2023-12-14 18:24:36 Pt states" My right wrist hurts krissy when I move it" Denies any trauma on the right hand, 37weeks , dr Casas assessing the pt in the room Mikki Rondon RN [facility] 2023-12-14 18:15:00 [facility] Emergency Department Note Patient Name: Aleisha Mosqueda Date of : 2000 23 year old female Treatment Room: [place] [address]/[place] [address] Primary Care Physician: PATIENT DOES NOT HAVE A PCP Patient Escorted by: Family [5] Mode of Arrival: Personal means [1] EMS Treatment Prior to ED Arrival: [facility] [employer]IST treatment: None Travel and Exposure Screening: Symptoms Does patient have any of these symptoms?: (not recorded) Exposure Screening Has patient had contact with someone with a communicable disease in the last month?: (not recorded) Diseases exposed to:: (not recorded) Is Patient ?: (not recorded) Exposure Date: (not recorded) Chief Complaint: Chief Complaint Patient presents with Wrist Pain Right wrist History of Present Illness: The patient presents from home for evaluation for pain to her right wrist that started today. She denies any injury or trauma. 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 She reports her pain is worse when she tries to grasp things like brush her teeth or put her hair up. She is currently . No vaginal bleeding or discharge. She is feeling the baby move. No medication taken for symptoms. Here for evaluation. Past Medical History/Immunizations: Past Medical History: Diagnosis Date Migraine STD (sexually transmitted disease) Tetanus received in last 5 years: Unknown Childhood immunizations: Up-to-date Allergies: Allergies Allergen Reactions Amoxicillin Hives Past Social History: Tobacco Use Never smoked or used smokeless tobacco. Vaping Use Never used Alcohol Use Not Currently. Comments: social Drug Use Never. Sexual Activity Sexually active; Partners: Male. Past Surgical History: Past Surgical History: Procedure Laterality Date SECTION CHOLECYSTECTOMY Review of Systems: Review of Systems Constitutional: Negative for chills and fever. Respiratory: Negative for cough. Cardiovascular: Negative for chest pain. Gastrointestinal: Negative for abdominal pain. Genitourinary: Negative for dysuria. Musculoskeletal: Positive for arthralgias. Negative for neck pain. Skin: Negative for wound. Neurological: Negative for dizziness. Psychiatric/Behavioral: Negative for agitation. Endocrine: Negative for goiter. Physical Exam: ED Triage Vitals [12/14/23 1825] Weight 108 kg (238 lb) Actual or estimated Estimated by patient/family report Height 1.6 m (5' 3") BP 124/74 Pulse 70 Resp 16 Temp 36.7 ?C (98.1 ?F) Temp source Oral SpO2 100 % Measured on Room air Physical Exam Vitals and nursing note reviewed. Constitutional: Appearance: Normal appearance. She is obese. HENT: Head: Normocephalic and atraumatic. Cardiovascular: Rate and Rhythm: Normal rate. Pulses: Normal pulses. Pulmonary: Effort: Pulmonary effort is normal. Abdominal: Palpations: Abdomen is soft. Comments: Gravid uterus above the umbilicus. Musculoskeletal: General: Normal range of motion. Cervical back: Neck supple. Comments: Full range of motion of the right wrist without difficulty. +2 radial pulse. Neurological: General: No focal deficit present. Mental Status: She is alert and oriented to person, place, and time. Radiology: No orders to display Lab Results: Lab Results - No data to display EKG: If EKG completed, see Procedure Note. Orders and Treatments: No orders of the defined types were placed in this encounter. No orders of the defined types were placed in this encounter. First Provider Eval: ED Events Date/Time Event User Comments 12/14/231822 Medical Screening Begins ANGELA CASAS DO -- 12/14/231822 First Provider Evaluation ANGELA CASAS DO -- ED COURSE Diagnosis/Impression as of 12/14/231835 De Quervain's disease (radial styloid tenosynovitis) Procedures: Procedures MDM: Medical Decision Making The patient presents from home for evaluation for right wrist pain that started today. She denies any injury or trauma. She is right-handed. 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 She is currently . She states her pain is worse when she tries to grasp things such as a toothbrush or put her hair up. No vaginal bleeding or discharge. Vital signs are stable in the ER. She is full range of motion of her right wrist without difficulty. +2 radial pulse right side. There is no deformity to the right wrist. Suspect the patient has de Quervain's tenosynovitis. Will give a splint to wear for comfort. 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 Problems Addressed: De Quervain's disease (radial styloid tenosynovitis): acute illness or injury Risk OTC drugs. Flowsheet Documentation: Scoring Tools: No data recorded Disposition/Condition: ED Disposition ED Disposition Disch - Home Condition Stable Comment -- Discharge Medications: Patient's Medications START taking these medications No medications on file CONTINUE taking these medications which have NOT CHANGED NITROFURANTOIN&NIT. MACROCRYST (MACROBID) 100 MG CAPSULE Take 1 capsule by mouth in the morning and 1 capsule in the evening. ONDANSETRON (ZOFRAN) 4 MG TABLET Take 1 tablet by mouth every 8 (eight) hours as needed for Nausea and Vomiting (N/V). VIT NO.124/IRON/FOLIC ( VITAMIN ORAL) Take by mouth. START taking Modified Medications as Prescribed No medications on file STOP taking these medications No medications on file Follow-up: Electronically signed by: Angela Casas DO 12/14/23 1837 [facility] 2023-12-13 09:18:10 36 weeks patient with complaints of vaginal bleeding. Inez Neves RN [facility] 2023-12-11 10:45:00 ROUTINE VISIT 12/11/2023 10:46 AM SUBJECTIVE Aleisha Mosqueda is a 23 year old at 36w3d who presents for routine visit. She has no complaints today; loss of fluid, vaginal bleeding, and signs or symptoms of pre-eclampsia. Good movement. Occasional contractions Pt has not started taking abx yet OBJECTIVE BP 98/63 | Pulse 70 | Resp 18 | Ht 5' 4" (1.626 m) | Wt 238 lb (108 kg) | LMP 03/31/2023 (Exact Date) | BMI 40.85 kg/m? Physical Exam: Gen: A&Ox3, NAD Pulm: No labored breathing Abd: Soft, gravid, NTTP, ND, no rebound or guarding Ext: No calf tenderness ASSESSMENT: Aleisha Mosqueda is a 23 year old at 36w3d who presents for routine visit. Patient Active Problem List Diagnosis Chlamydia infection affecting in first trimester Previous section complicating High-risk in first trimester High-risk in third trimester Anemia of mother in , antepartum PLAN 1. High-risk in third trimester --11/26 [place]: 84%ile --ASB diagnosed pt to complete abx 2. Previous section complicating --CS x1, RCS on 01/01/24. 3. 36 weeks gestation of - POCT Urinalysis w/o Specific [place] [facility] 2023-12-07 10:00:00 Images from the original note were not included. Venipuncture collection performed by clean technique on the right anticubitus. Total of 1 attempts were made. Slight pressure and a bandage/dressing were applied to the site(s). The patient experienced no complications. The following specimens were processed according to instructions and sent to [facility] per lab order on 12/07/2023 : LT BLUE SST RED LAV 1 PPT DK GREEN (LiHep) DK GREEN (SodH) PICKETT DK BLUE (K2) DK BLUE (S) ACD Blood Culture NIPT/NTD [facility] 2023-12-06 08:15:00 ROUTINE VISIT 12/06/2023 8:53 AM SUBJECTIVE Aleisha Mosqueda is a 23 year old at 35w5d who presents for routine visit. She has no complaints today; loss of fluid, vaginal bleeding, and signs or symptoms of pre-eclampsia. Good movement. Occasional contractions OBJECTIVE BP 116/78 (BP Location: Right arm, Patient Position: Sitting, BP CUFF SIZE: Adult Large) | Pulse 57 | Resp 16 | Ht 5' 4" (1.626 m) | Wt 239 lb (108.4 kg) | LMP 03/31/2023 (Exact Date) | BMI 41.02 kg/m? Physical Exam: Gen: A&Ox3, NAD Pulm: No labored breathing Abd: Soft, gravid, NTTP, ND, no rebound or guarding Ext: No calf tenderness : cl/long/-4 US: vertex ASSESSMENT: Aleisha Mosqueda is a 23 year old at 35w5d who presents for routine visit. Patient Active Problem List Diagnosis Chlamydia infection affecting in first trimester Previous section complicating High-risk in first trimester High-risk in third trimester Anemia of mother in , antepartum PLAN 1. High-risk in third trimester --Recent EFW 84%ile on 11/26. - CASE REQUEST: SECTION; Standing - CASE REQUEST: SECTION 2. Previous section complicating --h/o AOD and since fetus large pt desires RCS --scheduled for 01/01/24 (no tubal) - CASE REQUEST: SECTION; Standing - CASE REQUEST: SECTION 3. Anemia of mother in , antepartum PNV +iron 4. 35 weeks gestation of - POCT Urinalysis w/o [place] - Group B Streptococcus By PCR - Cbc with Diff; Future - Gc & Chlamydia Amplified Assay; Future - Gc & Chlamydia Amplified Assay 5. Low back pain, unspecified back pain laterality, unspecified chronicity, unspecified whether sciatica present --no sign of labor - Urine Culture; Future - Urine Culture 6. Pelvic pressure in - Urine Culture; Future - Urine Culture [facility] [employer] 2023-11-27 11:15:00 Reviewed recent ultrasound results, show: normal interval growth [facility] 2023-11-12 13:00:00 Age: [age] year old GA: 32w2d ASSESSMENT: Aleisha Mosqueda is a 23 year old at 32w2d who presents for routine visit. Patient Active Problem List Diagnosis Chlamydia infection affecting in first trimester Previous section complicating High-risk in first trimester High-risk in third trimester Anemia of mother in , antepartum PLAN 1. High-risk in third trimester Hx of CD x 1 2. 32 weeks gestation of - POCT Urinalysis w/o [place] - Urine Culture; Future 3. Anemia of mother in , antepartum Taking iron supplement. -Reviewed with patient [facility] Labor precautions reviewed with patient 1. If your water breaks(gush or a constant trickle). 2. Bleeding like your period. 3. If your baby's movements are less than 10 in an hour. 4. Contractions or pain that is continuous. She verbalized understanding -All questions answered RTC in [address] Mary Ellen Norris DNP, SENIOR MEDICAL WRITER-BC 41:28 PM [facility] 2023-10-30 10:30:00 .ROUTINE VISIT 10/30/2023 10:42 AM SUBJECTIVE Aleisha Mosqueda is a 23 year old at 30w3d who presents for routine visit. She has no complaints today: loss of fluid, vaginal bleeding, and signs or symptoms of pre-eclampsia. Good movement. Occasional contractions. OBJECTIVE BP 101/68 (BP Location: Right arm, Patient Position: Sitting, BP CUFF SIZE: Adult Large) | Pulse 65 | Temp 36.7 ?C (98.1 ?F) (Oral) | Resp 15 | Ht 5' 4" (1.626 m) | Wt 232 lb (105.2 kg) | LMP 03/31/2023 (Exact Date) | BMI 39.82 kg/m? Physical Exam: Gen: A&Ox3, NAD Abd: Soft, gravid, NTTP, ND, no rebound or guarding Ext: No calf tenderness : deferred ASSESSMENT: Aleisha Mosqueda is a 23 year old at 30w3d who presents for routine visit. Patient Active Problem List Diagnosis Chlamydia infection affecting in first trimester Previous section complicating High-risk in first trimester High-risk in third trimester Anemia of mother in , antepartum PLAN 1. High-risk in third trimester 2. Previous section complicating --CS times 1 for AOD. Pt desires . Calculator score 37.6%ile chance of success with . Plan US @ 36 weeks for EFW 3. Anemia of mother in , antepartum --PNV + iron daily 4. 30 weeks gestation of - POCT Urinalysis w/o [place] [facility] 2023-10-20 20:51:31 Pt report given to ALCON Howard in L&D. Patient taken to unit via wheelchair by ED staff. [facility] 2023-10-20 20:49:03 Pt 29 weeks , reports decreased movement since this morning. Denies vaginal bleeding/discharge. Denies pain in triage. G2, P1, A0. OB: [facility]. Natacha Bernal RN [facility] 2023-10-16 09:30:00 ROUTINE VISIT 10/16/2023 10:46 AM SUBJECTIVE Aleisha Mosqueda is a 23 year old at 28w3d who presents for routine visit. She has no complaints today: loss of fluid, vaginal bleeding, and signs or symptoms of pre-eclampsia. Good movement. Occasional contractions. OBJECTIVE BP 103/69 (BP Location: Right arm, Patient Position: Sitting, BP CUFF SIZE: Adult Large) | Pulse 68 | Temp 36.7 ?C (98.1 ?F) (Oral) | Resp 16 | Ht 5' 4" (1.626 m) | Wt 229 lb (103.9 kg) | LMP 03/31/2023 (Exact Date) | BMI 39.31 kg/m? Physical Exam: Gen: A&Ox3, NAD Abd: Soft, gravid, NTTP, ND, no rebound or guarding Ext: No calf tenderness : deferred ASSESSMENT: Aleisha Mosqueda is a 23 year old at 28w3d who presents for routine visit. Patient Active Problem List Diagnosis Chlamydia infection affecting in first trimester Previous section complicating High-risk in first trimester High-risk in third trimester PLAN 1. 25 weeks gestation of - POCT Urinalysis w/o [place] - TDAP VACCINE, >10 YRS, IM - Urine Culture; Future - Urine Culture 2. High-risk in third trimester - POCT Urinalysis w/o [place] - TDAP VACCINE, >10 YRS, IM - Urine Culture; Future - Urine Culture 3. Need for Tdap vaccination - TDAP VACCINE, >10 YRS, IM [facility] 2023-10-04 11:45:00 Images from the original note were not included. Venipuncture collection performed by clean technique on the left anticubitus. Total of 1 attempts were made. Slight pressure and a bandage/dressing were applied to the site(s). The patient experienced no complications. The following specimens were processed according to instructions and sent to [facility] per lab order on 10/04/2023 : LT BLUE SST 2 RED 1 LAV 2 PPT DK GREEN (LiHep) DK GREEN (SodH) PICKETT DK BLUE (K2) DK BLUE (S) ACD Blood Culture NIPT/NTD Patient has been identified by and name and was provided with cup, antiseptic towelette, and clean catch instructions. 1 urine specimen(s) sent. Unpreserved 1 Urine Culture Aptima tube Other urine [facility] 2023-10-04 08:45:00 Given 50gm fruit punch glucola. Finished at 0857. Adriana Greene [facility] 2023-10-02 11:15:00 No orders in at the time patient stated she will be back on her day off on if is was ok.Gladys Oviedo 10/02/2023 12:00 PM Gladys Oviedo [facility] 2023-10-02 10:30:00 Reviewed recent ultrasound results, show: Normal growth [facility] 2023-09-25 10:45:00 ROUTINE VISIT 09/25/2023 10:52 AM SUBJECTIVE Aleisha Abigail Mosqueda is a 23 year old at 25w3d who presents for routine visit. She has some complaints today; denies contractions, loss of fluid, vaginal bleeding, and signs or symptoms of pre-eclampsia. Good movement. Some nausea and desires meds OBJECTIVE BP 112/74 | Pulse 69 | Temp 36.7 ?C (98.1 ?F) (Oral) | Resp 16 | Ht 5' 4" (1.626 m) | Wt 224 lb 11.2 oz (101.9 kg) | LMP 03/31/2023 (Exact Date) | SpO2 98% | BMI 38.57 kg/m? Physical Exam: Gen: A&Ox3, NAD Pulm: No labored breathing Abd: Soft, gravid, NTTP, ND, no rebound or guarding Ext: No calf tenderness : deferred ASSESSMENT: Aleisha Mosqueda is a 23 year old at 25w3d who presents for routine visit. Patient Active Problem List Diagnosis Chlamydia infection affecting in first trimester Previous section complicating High-risk in first trimester PLAN 1. 25 weeks gestation of - POCT Urinalysis w/o [place] 2. Nausea and vomiting in - ondansetron (ZOFRAN) 4 mg tablet; Take 1 tablet by mouth every 8 (eight) hours as needed for Nausea and Vomiting (N/V). Dispense: 20 tablet; Refill: 1 3. High-risk in second trimester --Anatomy US normal 09/05/23. --Discussed with patient plan for 3rd trimester lab testing --All questions answered [facility] 2023-09-25 10:45:00 Addended by: CORI OLIVAS on: 10/02/2023 11:49 AM Modules accepted: Orders Cori Olivas MA [facility] 2023-09-17 18:03:01 24.2 wks edc 01/05/24 Hx c/s x [address] Hyde C/o vaginal pain x 4 days, reports intermittent throbbing. Reports intercourse within the week and pain started afterwards. Reports clear discharge this am x 1, denies any further discharge. Rates pain 2/10, denies taking any tylenol for pain relief. Sve closed thick high. No vb or lof noted. Milky white discharge present. Fht's 140s, no ctx noted. Wet prep, u/a, culture, gcct collected. U/a dip + protein, +blood C/o and all assessment findings report to Dr. Tidwell: orders received. when labs are resulted if wet prep has clue or trich give flagyl 500 mg po x 1 dose. if u/a has moderate bacteria or + nitrites give macrobid 100 mg PO x 1 dose. if yeast is in wet prep given diflucan 200 mg po x 1 dose. can discharge home. Report and release of care to 7p shift. Charley Casarez RN Magda Hairston RN [facility] 2023-09-17 17:00:38 Patient reports that she has been having vaginal pain x 4 days. Patient of [facility]. Patient is 24 weeks. Reports clearish discharge that is not any different than normal. A0 Hx: . Contacted Vita RONDON and updated on patient's history and present condition. Patient transported by wheelchair to department. Maria A Smith RN [facility] 2023-09-04 09:30:00 Reviewed recent ultrasound results, show: Normal anatomy [facility] 2023-08-28 14:30:00 ROUTINE VISIT 08/28/2023 3:31 PM SUBJECTIVE Aleisha Mosqueda is a 22 year old at 21w3d who presents for routine visit. She has no complaints today; denies contractions, loss of fluid, vaginal bleeding, and signs or symptoms of pre-eclampsia. Good movement. Went ti [facility] ER last weeks and diagnosed with UTI OBJECTIVE BP 98/66 (BP Location: Right arm, Patient Position: Sitting, BP CUFF SIZE: Adult Large) | Pulse 60 | Temp 36.6 ?C (97.9 ?F) (Oral) | Resp 16 | Ht 5' 4" (1.626 m) | Wt 222 lb 12.8 oz (101.1 kg) | LMP 03/31/2023 (Exact Date) | BMI 38.24 kg/m? Physical Exam: Gen: A&Ox3, NAD Pulm: No labored breathing Abd: Soft, gravid, NTTP, ND, no rebound or guarding Ext: No calf tenderness : deferred ASSESSMENT: Aleisha Mosqueda is a 22 year old at 21w3d who presents for routine visit. Patient Active Problem List Diagnosis Chlamydia infection affecting in first trimester Previous section complicating High-risk in first trimester PLAN 1. 21 weeks gestation of - POCT Urinalysis w/o [place] 2. High-risk in second trimester 3. Previous section complicating [facility] 2023-08-27 12:56:27 Left voicemail for pt to inform her that MFM has attempted to contact her several times to schedule anatomy scan. MFM number given on voicemail. Pt has appointment with provider tomorrow in [place] will assist in scheduling anatomy scan at that time if appointment still has not been scheduled. Provider informed. Cori Olivas MA [facility] 2023-07-31 10:45:00 ROUTINE VISIT 07/31/2023 11:01 AM SUBJECTIVE Aleisha Mosqueda is a 22 year old at 17w3d who presents for routine visit. She has complaints today; denies contractions, loss of fluid, vaginal bleeding, and signs or symptoms of pre-eclampsia. OBJECTIVE BP 115/71 (BP Location: Right arm, Patient Position: Sitting, BP CUFF SIZE: Adult Medium) | Pulse 99 | Temp 36.4 ?C (97.6 ?F) (Oral) | Resp 16 | Ht 5' 4" (1.626 m) | Wt 219 lb 14.4 oz (99.7 kg) | LMP 03/31/2023 (Exact Date) | BMI 37.75 kg/m? FHT: 136 Physical Exam: Gen: A&Ox3, NAD Pulm: No labored breathing Abd: Soft, gravid, NTTP, ND, no rebound or guarding Ext: No calf tenderness ASSESSMENT: Aleisha Mosqudea is a 22 year old at 17w3d who presents for routine visit. Patient Active Problem List Diagnosis Chlamydia infection affecting in first trimester Previous section complicating High-risk in first trimester PLAN 1. 17 weeks gestation of - POCT Urinalysis w/o [place] - Alpha Fetoprotein-Maternal Ser; Future - CONSULT MATERNAL MEDICINE ULTRASOUND 2. High-risk in first trimester - POCT Urinalysis w/o [place] - Alpha Fetoprotein-Maternal Ser; Future - CONSULT MATERNAL MEDICINE ULTRASOUND 3. Previous section complicating --previous x 1 Vee Hyde MD [facility] 2023-07-19 15:17:45 Name and verified. Pt stated that her other son ahs Sickle Cell Trait. FOB is not the same. Will speak with the FOB and call us back. EVY GOEL RN 07/19/2023 3:20 PM S OPERATIONS LEAD Evy Goel RN [facility] 2023-07-19 14:19:01 Patient is returning nurse's call. S OPERATIONS LEAD Ana Maria Rocha [facility] 2023-07-19 13:12:53 LM on for pt to return call regarding results and plan of care. EVY GOEL RN 07/19/2023 1:13 PM [facility] 2023-07-19 12:21:57 Please let pt know that she is a carrier for sickle cell trait. Recommend testing FOB to determine if baby has risk of having sickle cell disease. If FOB positive baby has a 25% of having disease. [facility] 2023-07-19 11:01:00 Can you upload so I can see results [facility] 2023-07-17 15:32:03 Received [facility] results via fax. Placed on provider's desk for review. EVY GOEL RN 07/17/2023 3:32 PM [facility] 2023-07-13 10:07:34 Name and verified. Patient informed of [facility] lab results and verbalized understanding. See other telephone encounter. IE Lind MA [facility] 2023-07-12 17:03:09 Aleisha Mosqueda is a 22 year old female Patient returning call to [employer] in clinic. Please be advised and call her back at [phone] (home) to discuss results. [facility] Katy Lara [facility] 2023-07-12 16:52:06 Images from the original note were not included. [facility] results received via fax. Voicemail left for patient informing her that the results can be viewed on the [facility] patient portal or to give us a call back. Will discuss results at next visit. Results signed, will scan and upload a copy to [facility]. [facility] Roxanne Lind MA [facility] 2023-07-04 08:45:00 Images from the original note were not included. Venipuncture collection performed by clean technique on the right anticubitus. Total of 1 attempts were made. Slight pressure and a bandage/dressing were applied to the site(s). The patient experienced no complications. The following specimens were processed according to instructions and sent to [facility] per lab order on 07/04/2023: LT BLUE SST 3 RED 1 LAV 2 PPT DK GREEN (LiHep) DK GREEN (SodH) PICKETT DK BLUE (K2) DK BLUE (S) ACD Blood Culture NIPT/NTD Pt could not void. Said she will do it next time she comes in. [facility] Kit collected. Scarlett Brown 07/04/2023 9:27 AM [facility] 2023-07-04 08:45:00 Baseline Cbc reviewed Normal diabetes screen. [facility]
[2024-08-19] MEDS ORDERED: ACETAMINOPHEN 500 MG TAB ONE (03:11)
[2024-08-19] MEDS ORDERED: dexAMETHasone 10 MG/ML VIAL ONE (03:11)
[2024-08-19] MEDS ORDERED: METOCLOPRAMIDE 10 MG/2mL INJ ONE (03:12)
[2024-08-19] MEDS ORDERED: DIPHENHYDRAMINE 50 MG/ML VIAL ONE (03:12)
[2024-08-19] MEDS ORDERED: NA CHLORIDE 0.9% 1,000 ML ONE (03:12)
[2024-08-19] MEDS ORDERED: SUMATRIPTAN SUCC 6MG/0.5ML VIAL SQ ONE (04:28)
[2024-08-19] MEDS ORDERED: KETOROLAC 30 MG/ML INJ ONE (04:28)
[2024-08-19] MEDS ORDERED: Magnesium Sulfate 2gm IVPB 2 G/50 ML BAG IV ONE (04:29)
--- NOTE | 2024-08-19 05:27 | EDPHYS ---
Physician Documentation [facility] Name: Aleisha Mcqueen Age: 23 yrs Sex: Female : 2000 Arrival Date: 08/19/2024 Time: 02:43 Bed 7 Private MD: ED Physician Camilo Hampton HPI: 08/19 03:21 This 23 yrs old Female presents to ER via Ambulatory with complaints of rt Headache, Nausea/Vomiting. 03:21 Patient with history of migraines presents to the ED with a right sided headache rt starting at about 10 with associated nausea, vomiting, photophobia. States that this is similar in character to previous migraines. She took 800 mg of ibuprofen to no relief. Denies other acute complaints at this time, symptoms are moderate in severity, no other aggravating or alleviating factors.. 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 - Infectious Disease History:: Denies. - Social history:: Smoking status: Patient denies any tobacco usage or history of. - Family history:: not pertinent. ROS: 03:21 Constitutional: Negative for fever, chills, and weight loss, Cardiovascular: Negative rt for chest pain, palpitations, and edema, Respiratory: Negative for shortness of breath, cough, wheezing, and pleuritic chest pain, MS/Extremity: Negative for injury and deformity, Skin: Negative for injury, rash, and discoloration, 03:21 Abdomen/GI: Positive for nausea and vomiting, Negative for abdominal pain, 03:21 Neuro: Positive for headache, Negative for loss of consciousness, Exam: 03:21 Constitutional: This is a well developed, well nourished patient who is awake, alert, rt and in no acute distress. Head/Face: Normocephalic, atraumatic. Chest/axilla: Normal chest wall appearance and motion. Nontender with no deformity. No lesions are appreciated. Cardiovascular: Regular rate and rhythm with a normal S1 and S2. No gallops, murmurs, or rubs. Normal PMI, no JVD. No pulse deficits. Respiratory: Lungs have equal breath sounds bilaterally, clear to auscultation and percussion. No rales, rhonchi or wheezes noted. No increased work of breathing, no retractions or nasal flaring. Abdomen/GI: Soft, non-tender, with normal bowel sounds. No distension or tympany. No guarding or rebound. No evidence of tenderness throughout. Skin: Warm, dry with normal turgor. Normal color with no rashes, no lesions, and no evidence of cellulitis. MS/ Extremity: Pulses equal, no cyanosis. Neurovascular intact. Full, normal range of motion. Neuro: Awake and alert, GCS 15, oriented to person, place, time, and situation. Cranial nerves II-XII grossly intact. Motor strength 5/5 in all extremities. Sensory grossly intact. Cerebellar exam normal. Normal gait. Vital Signs: 02:59 BP 113 / 59; Pulse 71; Resp 18; Temp 98.2; Pulse Ox 98% ; Weight 93.44 kg; Height 5 ft. cp4 4 in. ; Pain 8/10; 04:52 BP 103 / 62; Pulse 68; Resp 18; Pulse Ox 98% ; cp4 02:59 Body Mass Index 35.36 (93.44 kg, 162.56 cm) cp4 02:59 Pain Scale: Adult cp4 MDM: 03:04 Medical Screening Exam initiated rt 05:26 Differential diagnosis: Migraine headache, nonspecific headache. Data reviewed: vital rt signs, nurses notes. Test considered but Not performed: CT: Patient with pre-existing migraines, similar in character to migraines, does not intractable, CT scan of the head is not indicated. Counseling: I had a detailed discussion with the patient and/or guardian regarding the historical points, exam findings, and any diagnostic results supporting the discharge/admit diagnosis, the need for outpatient follow up. Response to treatment: the patient's symptoms have resolved after treatment, the patient's pain is gone. Administered Medications: 03:24 Drug: Acetaminophen PO 1000 mg PO once Route: PO; cp4 04:38 Follow up: Response: No adverse reaction; Pain is decreased cp4 03:24 Drug: Decadron - Dexamethasone IVP 10 mg IVP once Route: IVP; Site: right antecubital; cp4 04:39 Follow up: Response: No adverse reaction cp4 03:25 Drug: metoCLOPramide IVP 10 mg IVP once; over 1 to 2 minutes Route: IVP; Site: right cp4 antecubital; 04:38 Follow up: Response: No adverse reaction cp4 03:25 Drug: diphenhydrAMINE IVP 25 mg IVP once Route: IVP; Site: right antecubital; cp4 04:38 Follow up: Response: No adverse reaction cp4 03:25 Drug: NS 0.9% IV 1000 ml IV at 1000 ml once; to be given as a bolus over 60 minutes cp4 Route: IV; Rate: 1000 ml; Site: right antecubital; 04:38 Follow up: IV Status: Completed infusion cp4 04:38 Drug: Magnesium Sulfate IVPB 2 grams IVPB once over 1 hrs Route: IVPB; Infused Over: 1 cp4 hrs; Site: right antecubital; 05:42 Follow up: IV Status: Completed infusion cp4 04:38 Drug: Ketorolac IVP 15 mg IVP once Route: IVP; Site: right antecubital; cp4 05:42 Follow up: Response: No adverse reaction; Pain is decreased cp4 04:38 Drug: SUMAtriptan Sub-Q 6 mg Sub-Q once Route: Sub-Q; Site: right upper arm; cp4 05:42 Follow up: Response: No adverse reaction; Pain is decreased cp4 Disposition Summary: 08/19/24 05:26 Discharge Ordered Notes: Location: Home rt Problem: an acute exacerbation rt Symptoms: have improved rt Condition: Stable rt Diagnosis - Migraine without aura, not intractable rt Followup: rt - With: Private Physician - When: 2 - 3 days - Reason: Discharge Instructions: - Discharge Summary Sheet rt - Migraine Headache rt Forms: - Medication Reconciliation Form rt - Antibiotic Education rt - Prescription Opioid Use rt - Patient Portal Instructions rt - Leadership Thank You Letter rt - Work release form cp4 Signatures: Camilo Hampton MD MD rt Dhara Hickey cp4 Corrections: (The following items were deleted from the chart) 03:23 03:21 Constitutional: Negative for fever, chills, and weight loss, Cardiovascular: rt Negative for chest pain, palpitations, and edema, Respiratory: Negative for shortness of breath, cough, wheezing, and pleuritic chest pain, MS/Extremity: Negative for injury and deformity, Skin: Negative for injury, rash, and discoloration, Neuro: Negative for headache, weakness, numbness, tingling, and seizure, rt
--- NOTE | 2024-08-19 05:27 | ER ---
Nurse's Notes [facility] Name: Aleisha Mcqueen Age: 23 yrs Sex: Female : 2000 Arrival Date: 08/19/2024 Time: 02:43 Bed 7 Private MD: Diagnosis: Migraine without aura, not intractable Presentation: 08/19 02:59 Chief complaint: Patient states: migraine since 2199. States she has hx of migraines cp4 and took an 800 mg ibuprofen prior to arrival. Coronavirus screen: Client denies travel out of the [place] in the last 14 days. At this time, the client does not indicate any symptoms associated with coronavirus-19. Ebola Screen: Patient negative for fever greater than or equal to 101.5 degrees Fahrenheit, and additional compatible Ebola Virus Disease symptoms Patient denies exposure to infectious person. Patient denies travel to an Ebola-affected area in the 21 days before illness onset. No symptoms or risks identified at this time. Initial Sepsis Screen: Does the patient meet any 2 criteria? No. Patient's initial sepsis screen is negative. Does the patient have a suspected source of infection? No. Patient's initial sepsis screen is negative. Risk Assessment: Do you want to hurt yourself or someone else? Patient reports no desire to harm self or others. Onset of symptoms was August 18, 2024 at 22:00. 02:59 Method Of Arrival: Ambulatory 4 02:59 Acuity: PINEDA 3 cp4 Triage Assessment: 03:01 Headache History: The patient has had previous headaches and this one is similar to cp4 previous episodes. General: Appears in no apparent distress. uncomfortable, Behavior is calm, cooperative, appropriate for age. Pain: Complains of pain in head Pain currently is 8 out of 10 on a pain scale. Pain began 2199 yesterday Also complains of nausea, photophobia. EENT: No signs and/or symptoms were reported regarding the EENT system. Neuro: Level of Consciousness is awake, alert, obeys commands, Oriented to person, place, time, situation. Cardiovascular: Patient's skin is warm and dry. Respiratory: Airway is patent Respiratory effort is even, unlabored. GI: No signs and/or symptoms were reported involving the gastrointestinal system. : No signs and/or symptoms were reported regarding the genitourinary system. Derm: No signs and/or symptoms reported regarding the dermatologic system. Musculoskeletal: No signs and/or symptoms reported regarding the musculoskeletal system. 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 - Infectious Disease History:: Denies. - Social history:: Smoking status: Patient denies any tobacco usage or history of. - Family history:: not pertinent. Screenin:03 [facility] ED Fall Risk Assessment (Adult) History of falling in the last 3 months, cp4 including since admission No falls in past 3 months (0 pts) Confusion or Disorientation No (0 pts) Intoxicated or Sedated No (0 pts) Impaired Gait No (0 pts) Mobility Assist Device Used No (0 pt) Altered Elimination No (0 pt) Score/Fall Risk Level 0 - 2 = Low Risk Oriented to surroundings, Maintained a safe environment, Assessed \T\ reinforced patient's understanding of fall precautions, Hourly rounding (assess needs \T\ fall precautionary measures) done. Abuse screen: Denies threats or abuse. Denies injuries from another. Nutritional screening: No deficits noted. Tuberculosis screening: No symptoms or risk factors identified. Assessment: 03:03 Reassessment: No changes from previously documented assessment. cp4 Vital Signs: 02:59 BP 113 / 59; Pulse 71; Resp 18; Temp 98.2; Pulse Ox 98% ; Weight 93.44 kg; Height 5 ft. cp4 4 in. ; Pain 8/10; 04:52 BP 103 / 62; Pulse 68; Resp 18; Pulse Ox 98% ; cp4 02:59 Body Mass Index 35.36 (93.44 kg, 162.56 cm) cp4 02:59 Pain Scale: Adult cp4 ED Course: 02:46 Patient arrived in ED. gm2 02:51 Camilo Hampton MD is Attending Physician. rt 02:59 Dhara Hickey is Primary Nurse. cp4 03:01 Triage completed. cp4 03:01 Arm band placed on right wrist. Patient placed in waiting room. cp4 03:03 Bed in low position. Call light in reach. Side rails up X2. cp4 03:25 No provider procedures requiring assistance completed. Inserted saline lock: 22 gauge cp4 in right antecubital area, using aseptic technique. Blood collected. Flushed with 10 mL NS. 05:43 Provided Education on: migraine. cp4 05:43 intact, bleeding controlled, No redness/swelling at site. Pressure dressing applied. cp4 Administered Medications: 03:24 Drug: Acetaminophen PO 1000 mg PO once Route: PO; cp4 04:38 Follow up: Response: No adverse reaction; Pain is decreased cp4 03:24 Drug: Decadron - Dexamethasone IVP 10 mg IVP once Route: IVP; Site: right antecubital; cp4 04:39 Follow up: Response: No adverse reaction cp4 03:25 Drug: metoCLOPramide IVP 10 mg IVP once; over 1 to 2 minutes Route: IVP; Site: right cp4 antecubital; 04:38 Follow up: Response: No adverse reaction cp4 03:25 Drug: diphenhydrAMINE IVP 25 mg IVP once Route: IVP; Site: right antecubital; cp4 04:38 Follow up: Response: No adverse reaction cp4 03:25 Drug: NS 0.9% IV 1000 ml IV at 1000 ml once; to be given as a bolus over 60 minutes cp4 Route: IV; Rate: 1000 ml; Site: right antecubital; 04:38 Follow up: IV Status: Completed infusion cp4 04:38 Drug: Magnesium Sulfate IVPB 2 grams IVPB once over 1 hrs Route: IVPB; Infused Over: 1 cp4 hrs; Site: right antecubital; 05:42 Follow up: IV Status: Completed infusion cp4 04:38 Drug: Ketorolac IVP 15 mg IVP once Route: IVP; Site: right antecubital; cp4 05:42 Follow up: Response: No adverse reaction; Pain is decreased cp4 04:38 Drug: SUMAtriptan Sub-Q 6 mg Sub-Q once Route: Sub-Q; Site: right upper arm; cp4 05:42 Follow up: Response: No adverse reaction; Pain is decreased cp4 Medication: 03:03 VIS not applicable for this client. cp4 Outcome: 05:26 Discharge ordered by . rt 05:43 Discharged to home ambulatory, cp4 05:43 Condition: stable 05:43 Discharge instructions given to patient, family, Instructed on discharge instructions, follow up and referral plans. Demonstrated understanding of instructions, follow-up care, 05:43 Patient left the ED. cp4 Signatures: Camilo Hampton MD MD rt Potter, Christina cp4 Joycelyn Granados [facility]
[2024-08-19 05:53] VITALS: TEMP 98.2; O2SAT 98
[2024-08-19 05:59] VITALS: BP 103/62
== END 2024-08-19 05:43 | disposition home or self-care (01) ==
LOC: ER 02:43
DX: G43.009 Migraine without aura, not intractable, without status migrainosus (principal); R11.2 Nausea with vomiting, unspecified
CPT/HCPCS: 96365; 96361; 96375; 96372; 99284; J3030; J3475; J2765; J1200; J1100; J7030

== ENCOUNTER 2025-04-10 11:38 | Emergency (ER) | payer BC, OTHER ==
[2025-04-10] MEDS ORDERED: ONDANSETRON 4 MG/2 ML VIAL ONE (11:57)
[2025-04-10] MEDS ORDERED: NA CHLORIDE 0.9% 1,000 ML ONE (11:58)
[2025-04-10] MEDS ORDERED: ACETAMINOPHEN 500 MG TAB ONE (11:58)
[2025-04-10 12:17] LABS: Sqamous Epithelial <5 /HPF (None Seen); Urine Crystals Unidentified Few /HPF (None Seen); Urine Culture Reflex Order REFLEXED; Urine Microscopic Reflex YN ORDER UMIC
[2025-04-10 12:25] LABS: Influenza A Ag Negative; Influenza B Ag Negative; SARS-CoV-2 Antigen Rapid Res Negative (Negative)
--- NOTE | 2025-04-10 12:27 | RAD REPORT ---
EXAM: Chest Single View HISTORY: 24 years Female Cough;Fever COMPARISON: No prior exams FINDINGS: LUNGS/PLEURA: The lungs are clear. No pleural effusions or pneumothorax. No pulmonary edema. CARDIAC/MEDIASTINUM: The cardiac silhouette is within normal limits. UPPER ABDOMEN: No significant abnormality. BONES: No acute abnormality. LINES/TUBES/OTHER: N/A IMPRESSION: No evidence of acute cardiopulmonary disease.
[2025-04-10] MEDS ORDERED: NA CHLORIDE 0.9% 50 ML ONE (12:29)
[2025-04-10] MEDS ORDERED: CEFTRIAXONE 1000 MG/VIAL ONE (12:29)
--- NOTE | 2025-04-10 12:53 | EDPHYS ---
Physician Documentation [facility] Name: Aleisha Mcqueen Age: 24 yrs Sex: Female : 2000 Arrival Date: 04/10/2025 Time: 11:38 Bed 13 Private MD: ED Physician Cornelio Soto HPI: 04/10 13:35 This 24 yrs old Female presents to ER via Ambulatory with complaints of Flu dr5 Symptoms, Back Pain - LOWER, Migraine. 13:35 Onset: The symptoms/episode began/occurred acutely. patient is a 24-year-old female dr5 with history of migraines coming in with fever, dysuria, body aches has been going on for the past 3 days.. 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 - Infectious Disease History:: Denies. - Social history:: Smoking status: Patient denies any tobacco usage or history of. ROS: 13:39 Constitutional: as per hpi dr5 Exam: 13:39 Constitutional: This is a well developed, well nourished patient who is awake, alert, dr5 and in no acute distress. Head/Face: Normocephalic, atraumatic. Eyes: Pupils equal round and reactive to light, extra-ocular motions intact. Lids and lashes normal. Conjunctiva and sclera are non-icteric and not injected. Cornea within normal limits. Periorbital areas with no swelling, redness, or edema. Chest/axilla: Normal chest wall appearance and motion. Nontender with no deformity. No lesions are appreciated. Cardiovascular: Tachycardic rate and rhythm with a normal S1 and S2. Normal PMI, no JVD. No pulse deficits. Respiratory: Lungs have equal breath sounds bilaterally, clear to auscultation. No rales, rhonchi or wheezes noted. No increased work of breathing, no retractions or nasal flaring. Back: No spinal tenderness. No costovertebral tenderness. Full range of motion. Skin: Warm, dry with normal turgor. Normal color with no rashes, no lesions, and no evidence of cellulitis. MS/ Extremity: Pulses equal, no cyanosis. Neurovascular intact. Full, normal range of motion. Neuro: Awake and alert, GCS 15, oriented to person, place, time, and situation. Cranial nerves II-XII grossly intact. Motor strength 5/5 in all extremities. Sensory grossly intact. Cerebellar exam normal. Normal gait. Vital Signs: 11:44 BP 132 / 74; Pulse 115; Resp 16; Temp 100.4; Pulse Ox 100% on R/A; Weight 95.25 kg; dd2 Height 5 ft. 4 in. ; Pain 8/10; 13:04 BP 122 / 72; Pulse 98; Resp 18; Pulse Ox 100% on R/A; kj2 11:44 Body Mass Index 36.05 (95.25 kg, 162.56 cm) dd2 11:44 Pain Scale: Adult dd2 MDM: 11:41 Medical Screening Exam initiated dr5 13:39 Differential Diagnosis flu, COVID, UTI, strep. Data reviewed: vital signs, nurses dr5 notes, lab test result(s), Flu: negative urinalysis, bacteruria, COVID-negative, strep negative, radiologic studies, plain films. Consideration of Admission/Observation Escalation of care including admission/observation considered. Escalation considered patient did not start feeling better or is hypoxic. I considered the following discharge prescriptions or medication management in the emergency department I discussed and recommended Over The Counter medications, Medications were administered in the Emergency Department. See MAR. Independent interpretation of the following test(s) in the Emergency Department X-Ray: My interpretation is Independent interpretation of x-ray does not reveal infiltrates concerning for pneumonia. Care significantly affected by the following chronic conditions: Migraine. Care significantly affected by the following Social Determinants of Health: Poor access to healthcare and/or lack of insurance, Poor access to transportation, Problems related to employment. Counseling: I had a detailed discussion with the patient and/or guardian regarding the historical points, exam findings, and any diagnostic results supporting the discharge/admit diagnosis, the presence of at least one elevated blood pressure reading (>120/80) during this emergency department visit, lab results, radiology results, the need for outpatient follow up, for definitive care, a family practitioner, to return to the emergency department if symptoms worsen or persist or if there are any questions or concerns that arise at home. Medication response: Rocephin, normal saline. Response to treatment: the patient's symptoms have resolved after treatment. Special discussion: I discussed with the patient/guardian in detail that at this point there is no indication for admission to the hospital. It is understood, however, that if the symptoms persist or worsen the patient needs to return immediately for re-evaluation. Based on the history and exam findings, there is no indication for further emergent testing or inpatient evaluation. I discussed with the patient/guardian the need to see the primary care provider for further evaluation of the symptoms. ED course: Patient reports he is feeling much better after Rocephin and normal saline. Will have patient continue antibiotics at home for urinary tract infection. Alternate Tylenol Motrin as a for pain and fever. All questions answered. Strict ER precautions given. 04/10 11:43 Order name: COVID-19 Ag + Flu A+B Ag; Complete Time: 12:49 dd2 04/10 11:43 Order name: Group A Streptococcus Rapid; Complete Time: 12:21 dd2 04/10 11:47 Order name: UA Rfx Michael Cult if indicated; Complete Time: 12:21 dr5 04/10 11:47 Order name: Test, Urine; Complete Time: 12:21 dr5 04/10 12:14 Order name: Throat Culture EDMO 04/10 12:21 Order name: Urine Culture EDMO 04/10 11:43 Order name: Chest Single View XRAY; Complete Time: 12:49 dd2 04/10 11:47 Order name: IV Start; Complete Time: 11:58 dr5 Administered Medications: 12:02 Drug: NS 0.9% IV 1000 ml IV at 1000 ml once; to be given as a bolus over 60 minutes dd2 Route: IV; Rate: 1000 ml; Site: right antecubital; 13:09 Follow up: IV Status: Completed infusion; IV Intake: 1000ml kj2 12:02 Drug: Ondansetron IVP 4 mg IVP once; over 2 minutes Route: IVP; Site: right antecubital;dd2 13:09 Follow up: Response: No adverse reaction kj2 12:02 Drug: Acetaminophen PO 1000 mg PO once Route: PO; dd2 13:09 Follow up: Response: No adverse reaction kj2 12:31 Drug: Rocephin IV 1 grams IV at per protocol once; Given slow IV push per pharmacy kj2 instructions Route: IV; Rate: per protocol; Site: right antecubital; 13:08 Follow up: IV Status: Completed infusion; IV Intake: 50ml kj2 Disposition: 13:45 Co-signature as Attending Physician, Cornelio Soto MD I reviewed the patient's care rn provided by the Advanced Practice Provider and agree with the diagnosis and treatment plan. Disposition Summary: 04/10/25 12:53 Discharge Ordered Notes: Location: Home dr5 Condition: Stable dr5 Diagnosis - UTI/ Urinary tract infection, site not specified dr5 Followup: dr5 - With: Emergency Department - When: As needed - Reason: Worsening of condition Followup: dr5 - With: Private Physician - When: 1 - 2 days - Reason: Recheck today's complaints, Continuance of care, Re-evaluation by your physician Discharge Instructions: - Discharge Summary Sheet dr5 - Urinary Tract Infection, Adult, [id number] dr5 Forms: - Work release form kj2 - Medication Reconciliation Form dr5 - Antibiotic Education dr5 - Patient Portal Instructions dr5 - Leadership Thank You Letter dr5 Prescriptions: - Cephalexin 500 mg Oral Capsule - take 1 capsule ORAL route every 12 hours for 10 days; 20 capsule; Refills: 0, dr5 Product Selection Permitted - Tramadol 50 mg Oral Tablet - take 1 tablet ORAL route every 8 hours as needed; 12 tablet; Refills: 0, dr5 Product Selection Permitted Signatures: Dispatcher [employer] EDCornelio Sánchez MD MD rn Jordan, Krystal, RN RN kj2 KVNG HERNANDEZ RN RN dd2 James Raines, ELECTRIC MOTOR TESTER ASSEMBLER-C ELECTRIC MOTOR TESTER ASSEMBLER-Cdr5 Corrections: (The following items were deleted from the chart) 11:48 11:48 UA Rfx Michael Cult if indicated+U.LAB.BRZ ordered. EDMS EDMS 11:48 11:48 Test, Urine+UC.LAB.BRZ ordered. EDMS EDMS
--- NOTE | 2025-04-10 12:53 | ER ---
Nurse's Notes [facility] Name: Aleisha Mcqueen Age: 24 yrs Sex: Female : 2000 Arrival Date: 04/10/2025 Time: 11:38 Bed 13 Private MD: Diagnosis: UTI/ Urinary tract infection, site not specified Presentation: 04/10 11:44 Chief complaint: Patient states: HEADACHE, BODY ACHES AND NAUSEA X 3 DAYS. Coronavirus dd2 screen: chills, fever, headache, muscle pain, nausea. Ebola Screen: No symptoms or risks identified at this time. Initial Sepsis Screen: Does the patient meet any 2 criteria? No. Patient's initial sepsis screen is negative. Does the patient have a suspected source of infection? No. Patient's initial sepsis screen is negative. Risk Assessment: Do you want to hurt yourself or someone else? Patient reports no desire to harm self or others. Onset of symptoms was April 08, 2025. 11:44 Method Of Arrival: Ambulatory dd2 11:44 Acuity: PINEDA 3 dd2 Triage Assessment: 11:47 General: Appears in no apparent distress. uncomfortable, Behavior is calm, cooperative, dd2 appropriate for age. Pain: Complains of pain in HEAD, BODY Pain currently is 8 out of 10 on a pain scale. : Reports burning with urination, pain in lower back. Musculoskeletal: Circulation, motion, and sensation intact. Range of motion: intact in all extremities. 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 - Infectious Disease History:: Denies. - Social history:: Smoking status: Patient denies any tobacco usage or history of. Screenin:05 [facility] ED Fall Risk Assessment (Adult) History of falling in the last 3 months, kj2 including since admission No falls in past 3 months (0 pts) Confusion or Disorientation No (0 pts) Intoxicated or Sedated No (0 pts) Impaired Gait No (0 pts) Mobility Assist Device Used No (0 pt) Altered Elimination No (0 pt) Score/Fall Risk Level 0 - 2 = Low Risk Maintained a safe environment, Hourly rounding (assess needs \T\ fall precautionary measures) done. Abuse screen: Denies threats or abuse. Denies injuries from another. Nutritional screening: No deficits noted. Tuberculosis screening: No symptoms or risk factors identified. Assessment: 12:05 General: Appears in no apparent distress. Behavior is cooperative. Pain: Complains of kj2 pain in forehead Pain currently is 5 out of 10 on a pain scale. Neuro: Level of Consciousness is awake, alert, obeys commands, Oriented to person, place, time, situation. Cardiovascular: Patient's skin is warm and dry. Respiratory: Airway is patent Respiratory effort is even, unlabored. GI: No signs and/or symptoms were reported involving the gastrointestinal system. : No signs and/or symptoms were reported regarding the genitourinary system. 13:04 Reassessment: Patient appears in no apparent distress at this time. kj2 Vital Signs: 11:44 BP 132 / 74; Pulse 115; Resp 16; Temp 100.4; Pulse Ox 100% on R/A; Weight 95.25 kg; dd2 Height 5 ft. 4 in. ; Pain 8/10; 13:04 BP 122 / 72; Pulse 98; Resp 18; Pulse Ox 100% on R/A; kj2 11:44 Body Mass Index 36.05 (95.25 kg, 162.56 cm) dd2 11:44 Pain Scale: Adult dd2 ED Course: 11:41 Patient arrived in ED. cj3 11:41 James Raines FNP-C [facility] dr5 11:41 Cornelio Soto MD is Attending Physician. dr5 11:47 Triage completed. dd2 11:47 COVID-19 Ag + Flu A+B Ag Sent. ll1 11:47 Group A Streptococcus Rapid Sent. ll1 11:47 Arm band placed on Patient placed in an exam room, on a stretcher. ll1 11:58 UA Rfx Michael Cult if indicated Sent. ll1 11:58 Test, Urine Sent. ll1 11:58 Inserted saline lock: 22 gauge in right antecubital area, using aseptic technique. ll1 Flushed with 10 mL NS. 12:23 Chest Single View XRAY In Process Unspecified. EDMS 12:27 Vi Denise, RN is Primary Nurse. kj2 12:33 Patient has correct armband on for positive identification. Bed in low position. Call kj2 light in reach. Adult w/ patient. Provided Education on: call light. 13:05 No provider procedures requiring assistance completed. IV discontinued, intact, kj2 bleeding controlled, No redness/swelling at site. Pressure dressing applied. Administered Medications: 12:02 Drug: NS 0.9% IV 1000 ml IV at 1000 ml once; to be given as a bolus over 60 minutes dd2 Route: IV; Rate: 1000 ml; Site: right antecubital; 13:09 Follow up: IV Status: Completed infusion; IV Intake: 1000ml kj2 12:02 Drug: Ondansetron IVP 4 mg IVP once; over 2 minutes Route: IVP; Site: right antecubital;dd2 13:09 Follow up: Response: No adverse reaction kj2 12:02 Drug: Acetaminophen PO 1000 mg PO once Route: PO; dd2 13:09 Follow up: Response: No adverse reaction kj2 12:31 Drug: Rocephin IV 1 grams IV at per protocol once; Given slow IV push per pharmacy kj2 instructions Route: IV; Rate: per protocol; Site: right antecubital; 13:08 Follow up: IV Status: Completed infusion; IV Intake: 50ml kj2 Medication: 13:05 VIS not applicable for this client. kj2 Intake: 13:08 IV: 50ml; Total: 50ml. kj2 13:09 IV: 1000ml; Total: 1050ml. kj2 Outcome: 12:53 Discharge ordered by . tuan 13:05 Discharged to home ambulatory, kj2 13:05 Condition: stable 13:05 Discharge instructions given to patient, Instructed on discharge instructions, follow up and referral plans. Demonstrated understanding of instructions, follow-up care, 13:18 Patient left the ED. kj2 Signatures: Dispatcher [employer] EDMS Fred Lewis RN RN ll1 Vi Denise RN RN kj2 KVNG HERNANDEZ RN RN dd2 James Raines, NOODLE PRESS OPERATOR-C NOODLE PRESS OPERATOR-Cdr5 Debra Luna 3
[2025-04-10 13:32] VITALS: TEMP 100.4; O2SAT 100
[2025-04-10 13:37] VITALS: BP 122/72
== END 2025-04-10 13:18 | disposition home or self-care (01) ==
LOC: ER 11:38
DX: N39.0 Urinary tract infection, site not specified (principal); Z11.52 Encounter for screening for COVID-19
CPT/HCPCS: 96365; 87070; 87088; 81001; 87086; 36415; 81025; 71045; 96375; 99284; 87428; J2405; J7030; J0696